=== PATIENT | female | born 1955 | race Caucasian/White ===

== ENCOUNTER 2018-10-29 19:17 | Emergency (ER) | payer MEDICARE, MEDICAID, SELFPAY ==
[2018-10-29 19:18] VITALS: BP 143/76; PULSE 84; RESP 18; TEMP 36.7; O2SAT 99; BMI 30.6
--- NOTE | 2018-10-29 20:22 | RAD_ITS ---
STUDY: X-RAY - RIGHT KNEE REASON FOR EXAM: Female, 63 years old. Knee pain TECHNIQUE: 4 view(s) of the knee. COMPARISON: None. FINDINGS: Normal visualized distal femur. Normal visualized proximal tibia and fibula. Normal proximal tibiofibular articulation. Normal medial femorotibial compartment. Normal lateral femorotibial compartment. Normal patellofemoral articulation. There is a joint effusion. Otherwise soft tissues are unremarkable. RAD/Knee 4 or More Views IMPRESSION: Intact and aligned knee. Joint effusion. Electronically Signed: Michelle Holland, at 20:55 EDT Tel , Service support ,
--- NOTE | 2018-10-29 20:24 | ED.DCSUM_ITS ---
- ER Visit Summary Date of Service: 10/29/18 Chief Complaint: Right knee pain History of Present Illness: The patient is a 63 F who presents with right knee pain that began today. Patient states she has been having some pain in her knee over the past several days but today when she was walking down some stairs she felt a pop and had severe pain in her right knee. Patient states her pain is worse with standing. Patient describes her pain as throbbing. Patient states her pain improves with ice. Patient denies any paresthesias or weakness. Patient denies any other injuries. Physical Examination: Vital signs are stable. Patient is afebrile. Patient is in no acute distress. Musculoskeletal exam reveals diffuse tenderness around the right knee. There is no effusion noted. There is no bony crepitance or step-off. There is no edema or ecchymosis. Range of motion was limited in flexion of the right knee secondary to pain. There is no laxity appreciated. Pedal pulses are equal bilaterally. There is no calf tenderness. Extensor mechanism is intact. Achilles tendon is intact. Sensation was intact to light touch in the lower extremities bilaterally. Test Results: X-rays of the right knee were obtained. There is no acute fracture or loose body noted. Emergency Department Course and Treatment: Patient was given an injection of morphine. Patient was advised of her x-ray findings. Patient was advised that the pain may be coming from soft tissue that is not seen on x-ray such as cartilage or ligaments. Patient was given crutches. Patient was given a prescription for tramadol. Patient was instructed to ice and elevate the right knee. Patient was instructed to follow-up with her primary care physician in 5 to 7 days. Patient understood and was agreeable with the plan. All questions were answered. Disposition: Discharge home Impression: Right knee pain This note was generated with [employer] dictation software. It may contain incorrect words, spelling, and punctuation that were not noted in review of the chart prior to signing ED Disposition - Plan for ED Patient: Disposition: Home or Assisted Living Diagnosis: Right knee pain Instructions: ED Knee Pain [facility] Prescriptions: traMADol [Ultram] 50 mg PO Q6H PRN PRN 3 Days #12 tab PRN Reason: Pain Referrals: Jj Medina MD [Primary Care Provider] - 3-5 Days
[2018-10-29] MEDS: Morphine 4 MG/ML Syringe IM (20:52)
[2018-10-29 22:56] VITALS: BP 129/72; PULSE 67; RESP 16; O2SAT 98
== END 2018-10-29 22:57 | disposition home or self-care (01) ==
PROVIDERS: Emergency Provider Emergency Medicine; Family Provider Internal Medicine; PCP Internal Medicine
DX: M25.561 Pain in right knee (principal); E11.22 Type 2 diabetes mellitus with diabetic chronic kidney disease; N18.9 Chronic kidney disease, unspecified; Z79.4 Long term (current) use of insulin; Z79.84 Long term (current) use of oral hypoglycemic drugs; Z79.899 Other long term (current) drug therapy
CPT/HCPCS: 73564; 96372; 99283

== ENCOUNTER 2025-04-29 03:02 | Emergency (ER) | payer MEDICARE, MEDICAID, SELFPAY ==
[2025-04-29 03:03] VITALS: BP 174/86; PULSE 70; RESP 25; TEMP 36.4; O2SAT 99; BMI 26.2
[2025-04-29 03:06] VITALS: BP 174/86; PULSE 70; RESP 25; TEMP 36.4; O2SAT 99
--- NOTE | 2025-04-29 03:17 | CT_ITS ---
PROCEDURE: SOFT TISSUE NECK WITH CONTRAST 04/29/2025 REASON FOR EXAM: TROUBLE SWALLOWING. TECHNIQUE: Procedure Code: CTNEW Modality: CT Procedure: SOFT TISSUE NECK WITH CONTRAST CONTRAST: OMNIPAQUE 350 VOLUME: 100 mL One or more dose reduction techniques were used (e.g., Automated exposure control, adjustment of the mA and/or kV according to patient size, use of iterative reconstruction technique). RADIATION DOSE SUMMARY: CTDlvol: 17.01 mGy DLP: 556 mGycm COMPARISON: None. FINDINGS: Mild hypertrophy of the palatine tonsils, probably acute tonsillitis. No fluid collection or drainable abscess formation. No CT evidence of critical airway narrowing. Mild hypertrophy of the uvula, probably inflammatory pathology without drainable abscess. Bilateral mildly prominent carotid space lymph nodes are noted with the largest measuring 1.2 cm, probably reactive. Diffuse spondylosis. Mild chronic mucosal inflammatory changes of the maxillary sinuses and ethmoid air cells. Normal bilateral parotid glands. Normal bilateral toys inspector spaces. Normal bilateral parapharyngeal spaces. Normal bilateral carotid spaces. Normal bilateral sublingual and submandibular glands. Normal sublingual and submandibular spaces. Normal visualized nasopharynx. Normal retropharyngeal space. Normal perivertebral space. The visualized tongue, tongue base are normal. There is no demonstrated solid or cystic mass lesion. Normal epiglottis, bilateral vallecula and hypopharynx. The pre-epiglottic and paraglottic adipose spaces are normal. Normal visualized bilateral piriform sinuses, aryepiglottic folds, vocal cords, and arytenoid-cricoid articulations. Normal subglottic trachea. Normal bilateral lobes of the thyroid gland. Normal visualized pulmonary apices. CT/Soft Tissue Neck WITH Contrast IMPRESSION: Mild hypertrophy of the palatine tonsils, probably acute tonsillitis. No fluid collection or drainable abscess formation. No CT evidence of critical airway narrowing. Mild hypertrophy of the uvula, probably inflammatory pathology without drainabl e abscess. Bilateral mildly prominent carotid space lymph nodes are noted with the largest measuring 1.2 cm, probably reactive. Diffuse spondylosis. Mild chronic mucosal inflammatory changes of the maxillary sinuses and ethmoid air cells. Reading [facility]
--- NOTE | 2025-04-29 03:17 | EKG12_ITS ---
Test Reason : SOB Blood Pressure : */* mmHG Vent. Rate : 67 BPM Atrial Rate : 67 BPM P-R Int : 226 ms QRS Dur : 84 ms QT Int : 392 ms P-R-T Axes : 53 -9 76 degrees QTcB Int : 414 ms Sinus rhythm with 1st degree A-V block Nonspecific T wave abnormality Abnormal ECG BASELINE [employer] IMPACTS ACCURACY OF RHYTHM EVALUATION Confirmed by Kevin Guy ([id number]), film editor supervisor EMI RINCON ([id number]) on 04/29/2025 10:03:18 AM Referred By: Confirmed By: Kevin Guy
--- NOTE | 2025-04-29 03:19 | EX.ED.VIS.UR ---
HPI HPI - URI History of Present Illness Chief Complaint: Shortness of Breath Informant: patient and family (Daughter at bedside) Onset/Context/Timing Onset: Today and Yesterday Context: Gradual Onset Timing: Continuous Current Severity: Moderate Maximum Severity: Moderate Worsened by: Swallowing Associated Symptoms Associated Symptoms: Positive for Shortness of Breath and Nonproductive cough; Negative for Chest Pain, Hemoptysis or Productive Cough Narrative Narrative: 70-year-old female history of chronic kidney disease, hypertension, diabetes and stroke. 2-day history of URI symptoms with sore throat and nonproductive cough. Trouble swallowing. Chills. Cough is nonproductive. Other family members with similar symptoms. No prior history of illness like this before.Denies vomiting or diarrhea. Denies fever. Denies chest pain. Prior similar symptoms: No Recent Illness/Hospitalization: No ROS ROS ED ROS Narrative Nonproductive cough. Sore throat. Trouble swallowing. Constitutional Constitutional ED: Denies chills or fever(s) Eyes Eyes: Denies blurry vision ENT ENT ED: Reports sore throat; Denies ear pain or rhinorrhea Cardiovascular Cardiovascular: Denies chest pain or palpitations Respiratory/Chest Respiratory/Chest: Reports cough Gastrointestinal Gastrointestinal: Denies abdominal pain, constipation, diarrhea, melena, nausea or vomiting Genitourinary Genitourinary ED: Denies dysuria or hematuria Musculoskeletal Musculoskeletal: Denies arthralgias Integumentary Denies abscess Neurologic Neurologic: Denies headache(s) Psychiatric Psychiatric: Denies anxiety or depression Hematologic/Lymphatic Hematologic/Lymphatic: Denies easy bleeding Allergic/Immunologic Allergic/Immunologic ED: Denies mouth swelling, tongue swelling or urticaria [facility] Medical History Chronic kidney disease HTN (hypertension) Diabetes Home Medications ?Medication ?Instructions ?Recorded ?Last Taken ?Type albuterol sulfate 90 mcg/actuation 1 - 2 puff PO PRN PRN Sob &/Or 10/29/18 Unknown History aerosol inhaler (Ventolin HFA) Wheezing lisinopril 20 1 tab PO DAILY 10/29/18 Unknown History mg-hydrochlorothiazide 25 mg tablet metformin 500 mg tablet 1,000 mg PO BID 10/29/18 Unknown History metoprolol tartrate 50 mg tablet 50 mg PO DAILY 10/29/18 Unknown History amlodipine 10 mg tablet 10 mg PO DAILY 04/29/25 Unknown History atorvastatin 40 mg tablet 40 mg PO DAILY 04/29/25 Unknown History dulaglutide 3 mg/0.5 mL 3 mg subcut ZARAGOZA 04/29/25 Unknown History subcutaneous pen injector (Trulicity) empagliflozin 10 mg tablet 10 mg PO DAILY 04/29/25 Unknown History (Jardiance) insulin degludec 200 unit/mL (3 60 unit subcut DAILY 04/29/25 Unknown History mL) subcutaneous pen (Tresiba FlexTouch U-200 insulin) prednisone 20 mg tablet 40 mg (2 x 20 mg) PO DAILY 6 days 04/29/25 Unknown Rx #12 tabs trazodone 150 mg tablet 150 mg PO QHS 04/29/25 Unknown History Allergy/AdvReac Type Severity Reaction Status Date / Time No Known Allergies Allergy Verified 04/29/25 03:04 Social History Smoking Status: Never smoker EXAM Physical Exam Narrative Exam Narrative: 70-year-old female vital signs are stable afebrile. Does not look septic or toxic. Pulse ox 9 9% on room air no hypoxia. H EENT exam pupils round react light. Moist mucous membranes. Posterior pharynx minimal erythema. No exudate. No peritonsillar abscess. Able to handle own secretions. I gave her water it is uncomfortable and she is able to swallow. TMs unremarkable. Neck trachea midline no lymphadenopathy. No mass. No meningismus. Lungs clear to auscultation bilaterally. Heart regular rhythm rate about 70 no murmur. Chest wall ribs nontender. Back nontender. Abdomen soft nontender. Moving all 4 extremities. Nontender no edema normal strength. Neurologically she is awake alert no focal motor deficits. Const Vital Signs: 04/29/25 03:03 04/29/25 03:06 04/29/25 03:06 Temperature 97.6 F L 97.6 F L Temperature Source Oral Oral Pulse Rate 70 70 Respiratory Rate 25 H 25 H Respiratory Effort Short of Breath Respiratory Depth Deep Respiratory Pattern Tachypnea Blood Pressure 174/86 H 174/86 H Blood Pressure Mean 115 115 Pulse Ox 99 99 Oxygen Delivery Method Room Air Room Air Room Air MDM MDM MDM Narrative Medical decision making narrative: 70-year-old female suspect viral URI. She said it is quite uncomfortable and painful to swallow CT of her soft tissue of her neck will be obtained. Due to shortness of breath I will get a chest x-ray screening labs. And EKG. But clinically I suspect this is a viral syndrome. Multiple repeat exams patient's oxygen saturation remains 95 to 99% lying supine. Her CAT scan of soft tissue neck was unremarkable. I think this is simply a viral syndrome with a viral pharyngitis. There is no abscess. There is no epiglottitis. Patient be discharged home. Plenty of fluids. Replaced on prednisone 40 mg a day to help decrease inflammation. Warm salt water gargling. Follow-up if not improving. I do not believe she needs any antibiotics with normal labs and unremarkable CT other than the inflammation. History & Record Review Discussion w/independent historian: Patient and Family Additional record(s) reviewed:: Other Lab Data Attestation: I reviewed the patient's lab results. Lab results narrative: CBC unremarkable. White count 8. H&H 13 and 40. Platelets 242. Chemistries show a gap of 13. BUN and creatinine is 71.3. Glucose 74. No prior labs available for comparison. COVID and flu negative. Rapid strep negative. Labs: Laboratory Results - last 24 hr 04/29/25 03:10 WBC 8.2 RBC 4.65 Hgb 13.0 Hct 40.5 MCV 87.1 MCH 28.0 MCHC 32.1 RDW Std Deviation 42.4 RDW Coeff of [place] 13.4 Plt Count 242 MPV 10.8 Immature Gran % (Auto) 0.200 Neut % (Auto) 34.1 L Lymph % (Auto) 36.4 [place] % (Auto) 9.5 Eos % (Auto) 18.8 H Baso % (Auto) 1.0 Absolute Neuts (auto) 2.8 Absolute Lymphs (auto) 2.97 Nucleated RBC % 0 Sodium 144 Potassium 3.6 Chloride 103 Carbon Dioxide 27.3 Anion Gap 13 BUN 17 Creatinine 1.34 H Estim Creat Clear Calc 34.57 L Est GFR (MDRD) Non-Af 43 L BUN/Creatinine Ratio 12.5 Glucose 74 Calcium 9.6 Radiography Chest X-Ray - ED: 2 View and Read by ED Physician Discharge Plan Triage Chief Complaint: Shortness of Breath ED Provider: Dat Hickman Dx/Rx/DC Orders Clinical Impression: Acute viral pharyngitis Instructions: ED Pharyngitis, Viral Prescriptions: New prednisone 20 mg tablet 40 mg PO DAILY 6 Days Qty: 12 0RF No Action metformin 500 MG tablet 1,000 mg PO BID metoprolol tartrate 50 MG tablet 50 mg PO DAILY lisinopril-hydrochlorothiazide 20 MG-25MG tablet 1 tab PO DAILY albuterol sulfate [Ventolin HFA] 90 MCG HFA aerosol inhaler 1 - 2 puff PO PRN PRN (Reason: Sob &/Or Wheezing) atorvastatin 40 mg tablet 40 mg PO DAILY amlodipine 10 mg tablet 10 mg PO DAILY Jardiance 10 mg tablet 10 mg PO DAILY Trulicity 3 mg/0.5 mL pen injector 3 mg subcut ZARAGOZA insulin degludec [Tresiba FlexTouch U-200] 200 unit/mL (3 mL) insulin pen 60 unit subcut DAILY trazodone 150 mg tablet 150 mg PO QHS Primary Care Provider: Jj Medina Referrals: Jj Medina MD [[facility]] - 3-5 Days if not improving Activity Restrictions/Additional Instructions: Plenty of fluids and rest. Warm salt water gargling. Tylenol for pain. I did write your prescription for prednisone 40 mg a day for 6 more days. You were given your dose for today here. This is to decrease the inflammation and the discomfort in your throat. You currently do not an antibiotic appears to be viral. Your rapid strep was negative. Your CAT scan showed no significant narrowing of your throat. This should progressively get better if not follow-up with your doctor. Print Language: [place] Disposition Disposition: Home, Self Care
--- OUTSIDE RECORDS SUMMARY | 2025-04-29 03:23 | XMS RPT_ITS | CCD ---
Author Organization [facility] Care Team Providers Care Surgical Nurse Name Role Phone Jj Nettles MD Primary Care Provider [phone] Jj Nettles MD Primary Care Provider [phone] Vj GRAPE CUTTER.Carly BRUNER Unavailable [phone] JJ NETTLES Primary Care Unavailable CARLY ZABALA Attending Unavailable SELF Referring Unavailable JJ NETTLES Primary Care Unavailable CARLY ZABALA Referring Unavailable SELF Referring Unavailable JJ NETTLES Attending Unavailable JJ NETTLES Primary Care Unavailable CARLY ZABALA Referring Unavailable JJ NETTLES Primary Care Unavailable Medications Current Medications Medication Drug Class(es) Dates Sig (Normalized) Sig (Original) [id number] 200 actuat albuterol 0.09 mg/actuat metered dose inhaler (20 sources) beta2-Adrenergic Agonist Start: 07-03-2021 End: 02-29-2024 take 2 puff(s) by inhalation every six hours as needed for wheezing albuterol HFA (VENTOLIN HFA) 90 mcg/actuation inhaler Indications: Asthmatic bronchitis without complication, unspecified asthma severity, unspecified whether persistent (HCC) INHALE 2 PUFFS EVERY 6 HOURS NEEDED FOR WHEEZING OR SHORTNESS OF BREATH 36 g 3 02/29/2024 Active Comment on above: INHALE 2 PUFFS EVERY 6 HOURS NEEDED FOR WHEEZING OR SHORTNESS OF BREATH amLODIPine 10 mg oral tablet (20 sources) Dihydropyridine Calcium Channel Guanakito Start: 06-29-2023 End: 08-30-2024 take 1 tablet by mouth once daily for hypertension amLODIPine (NORVASC) 10 mg tablet Indications: Essential hypertension Take 1 tablet by mouth once daily. For high blood pressure. 90 tablet 3 08/30/2024 Active Start: 07-03-2021 End: 08-17-2022 take 1 tablet by mouth once daily for hypertension amLODIPine (NORVASC) 10 mg tablet Indications: Essential hypertension Take 1 tablet by mouth once daily. For high blood pressure. 90 tablet 3 08/17/2022 Active Comment on above: Take 1 tablet by beryl th once daily. For high blood pressure. atorvastatin 40 mg oral tablet (20 sources) HMG-CoA Reductase Inhibitor Start: End: take 1 tablet by mouth once daily atorvastatin (LIPITOR) 40 mg tablet Indications: Mixed hyperlipidemia Take 1 tablet by mouth once daily. 90 tablet 3 08/30/2024 Active Start: 01-02-2021 take 1 tablet by beryl th once daily atorvastatin (LIPITOR) 40 mg tablet Indications: Mixed hyperlipidemia Take 1 tablet by mouth once daily. 90 tablet 3 01/02/2021 Active Comment on above: Take 1 tablet by beryl th once daily. Blood Glucose Control, Normal (TRUE METRIX LEVEL 2) soln (20 sources) Start: 02-21-2019 Blood Glucose Control, Normal (TRUE METRIX LEVEL 2) soln Indications: Type 2 diabetes mellitus with stage 3 chronic kidney disease, with long-term current use of insulin (HCC) 1 Bottle as directed. 1 Bottle as directed. Test controls every 2 weeks or as needed,E11.65 1 Each 3 02/21/2019 Active Comment on above: 1 Bottle as directed . 1 Bottle as directed. Test controls every 2 weeks or as needed,E11.65 Blood-Glucose Meter (TRUE METRIX AIR GLUCOSE METER) monitoring kit (20 sources) Start: 08-29-2020 Blood-Glucose Meter (TRUE METRIX AIR GLUCOSE METER) monitoring kit Indications: Type 2 diabetes mellitus with stage 3 chronic kidney disease, with long-term current use of insulin (HCC) Check 4 times a day. Dx: E11.22; N18.3 1 Each 08/29/2020 Active Start: 08-29-2020 Blood-Glucose Meter (TRUE METRIX AIR GLUCOSE METER) monitoring kit Indications: Type 2 diabetes mellitus with stage 3 chronic kidney disease, with long-term current use of insulin (HCC) Check 4 times a day. Dx: E11.22; N18.3 1 Each 0 08/29/2020 Active Comment on above: Check 4 times a day. Dx: E11.22; N18.3 0.5 ml dulaglutide 3 mg/ml auto-injector (20 sources) GLP-1 Receptor Agonist Start: 04-03-2021 End: 02-29-2024 dulaglutide (TRULICITY) 1.5 mg/0.5 mL pen injector Indications: Type 2 diabetes mellitus with stage 3 chronic kidney disease, with long-term current use of insulin (HCC) Inject 1.5 mg subcutaneously one time a week. Inject once per week. Discard Pen After 12 Each 3 09/30/2023 02/29/2024 Discontinued Comment on above: Inject 1.5 mg subcut aneously one time a week. Inject once per week. Discard Pen After dulaglutide (TRULICITY) 3 mg/0.5 mL pen injector (10 sources) Start: 02-08-2025 dulaglutide (TRULICITY) 3 mg/0.5 mL pen injector Indications: Type 2 diabetes mellitus with stage 3b chronic kidney disease, with long-term current use of insulin (HCC) Inject 3 mg subcutaneously one time a week. Inject once per week. Discard Pen After 6 mL 3 02/08/2025 Active Start: 08-30-2024 End: 02-07-2025 dulaglutide (TRULICITY) 3 mg /0.5 mL pen injector Indications: Type 2 diabetes mellitus with stage 3b chronic kidney disease, with long-term current use of insulin (HCC) Inject 3 mg subcutaneously one time a week. Inject once per week. Discard Pen After 6 mL 3 08/30/2024 02/07/2025 Discontinued Start: 08-30-2024 dulaglutide (T RULICITY) 3 mg/0.5 mL pen injector Indications: Type 2 diabetes mellitus with stage 3b chronic kidney disease, with long-term current use of insulin (HCC) Inject 3 mg subcutaneously one time a week. Inject once per week. Discard Pen After 6 mL 3 08/30/2024 Active Start: 02-29-2024 End: 08-30-2024 dulaglutide (TRULICITY) 3 mg /0.5 mL pen injector Indications: Type 2 diabetes mellitus with stage 3 chronic kidney disease, with long-term current use of insulin (HCC) Inject 3 mg subcutaneously one time a week. Inject once per week. Discard Pen After 6 mL 3 02/29/2024 08/30/2024 Discontinued Start: 02-29-2024 dulaglutide (T RULICITY) 3 mg/0.5 mL pen injector Indications: Type 2 diabetes mellitus with stage 3 chronic kidney disease, with long-term current use of insulin (HCC) Inject 3 mg subcutaneously one time a week. Inject once per week. Discard Pen After 6 mL 3 02/29/2024 Active empagliflozin 10 mg oral tablet (20 sources) Sodium-Glucose Cotransporter 2 Inhibitor Start: 06-29-2023 End: 08-30-2024 take 1 tablet by mouth once daily, then take 1 tablet by mouth once daily in the morning empagliflozin (JARDIANCE) 10 mg tablet Indications: Type 2 diabetes mellitus with stage 3b chronic kidney disease, with long-term current use of insulin ([facility]) Take 1 tablet by mouth once daily. Take 1 tablet once daily in the morning 90 tablet 3 08/30/2024 Active Start: 08-18-2022 End: 01-24-2023 take 1 tablet by mouth once daily, then take 1 tablet by mouth once daily in the morning empagliflozin (JARDIANCE) 10 mg tablet Indications: Type 2 diabetes mellitus with stage 3 chronic kidney disease, with long-term current use of insulin ([facility]) Take 1 tablet by mouth once daily. Take 1 tablet once daily in the morning 90 tablet 1 01/24/2023 Active Comment on above: Take 1 tablet by beryl th once daily. Take 1 tablet once daily in the morning hydroCHLOROthiazide 25 mg / lisinopril 20 mg oral tablet (20 sources) Thiazide Diuretic, Angiotensin Converting Enzyme Inhibitor Start: End: take 1 tablet by mouth once daily lisinopril-hydroCHL OROthiazide (ZESTORETIC) 20-25 mg per tablet Indications: Essential hypertension Take 1 tablet by mouth once daily. 90 tablet 3 02/29/2024 Active Start: 01-02-2021 take 2 tablets by mouth once daily lisinopril-hydroCHLOROthiazide (PRINZIDE , ZESTORETIC) 20-25 mg per tablet Indications: Essential hypertension Take 2 tablets by mouth once daily. 180 tablet 3 01/02/2021 Active Comment on above: Take 2 tablets by mo ut once daily. Take 1 tablet by beryl th once daily. 3 ml insulin aspart, human 100 unt/ml pen injector (20 sources) Insulin Analog Start: 08-30-2023 End: 08-30-2024 insulin aspart U-100 (NOVOLOG FLEXPEN U-100 INSULIN) 100 unit/mL (3 mL) Indications: Type 2 diabetes mellitus with stage 3b chronic kidney disease, with long-term current use of insulin (HCC) Inject 4 Units subcutaneously as needed (for blood glucose >200.). 15 mL 08/30/2024 Active Start: 04-03-2021 End: 01-02-2024 inject 30 [IU] by subcutaneous injection three times daily before mealtime, then inject 30 [IU] by subcutaneous injection once daily at bedtime insulin aspart U-100 (NOVOLOG FLEXPEN U-100 INSULIN) 100 unit/mL (3 mL) Indications: Type 2 diabetes mellitus with stage 3 chronic kidney disease, with long-term current use of insulin (HCC) Inject 30 Units subcutaneously three times daily before meals AND 30 Units daily at bedtime. 108 mL 3 08/18/2022 08/30/2023 Discontinued Comment on above: Inject 30 Units subcutaneously three marie es daily before meals AND 30 Units daily at bedtime. Inject 4 Units subcu taneously as needed (for blood glucose >200.). 3 ml insulin degludec 200 unt/ml pen injector (14 sources) Insulin Analog Start: End: inject 60 [IU] by subcutaneous injection once daily in the morning, then inject 48 [IU] by subcutaneous injection once daily at bedtime insulin degludec (TRESIBA FLEXTOUCH U-200) 200 unit/mL (3 mL) injection Indications: Type 2 diabetes mellitus with stage 3b chronic kidney disease, with long-term current use of insulin (HCC) Inject 60 Units subcutaneously every morning AND 48 Units daily at bedtime. 50 mL 3 08/30/2024 Active Comment on above: Inject 60 Units subcutaneously every mor alysa AND 60 Units daily at bedtime. 3 ml insulin detemir 100 unt/ml pen injector (15 sources) Insulin Analog Start: End: inject 60 [IU] by subcutaneous injection once daily in the morning, then inject 60 [IU] by subcutaneous injection once daily at bedtime insulin detemir U-100 (LEVEMIR FLEXTOUCH U-100 INSULIN) 100 unit/mL (3 mL) injection pen Indications: Type 2 diabetes mellitus with stage 3 chronic kidney disease, with long-term current use of insulin ([facility]) Inject 60 Units subcutaneously every morning AND 60 Units daily at bedtime. 120 mL 3 08/18/2022 08/18/2023 Active Start: 04-13-2021 End: 11-02-2022 inject 50 [IU] by subcutaneous injection once daily in the morning, then inject 60 [IU] by subcutaneous injection once daily at bedtime insulin detemir U-100 (LEVEMIR FLEXTOUCH U-100 INSULIN) 100 unit/mL (3 mL) injection pen Indications: Type 2 diabetes mellitus with stage 3 chronic kidney disease, with long-term current use of insulin ([facility]) Inject 50 Units subcutaneously every morning AND 60 Units daily at bedtime. 99 mL 3 11/02/2021 08/18/2022 Discontinued Comment on above: Inject 50 Units subc utaneously every morning AND 60 Units daily at bedtime. Inject 60 Units subc utaneously every morning AND 60 Units daily at bedtime. isopropyl alcohol 0.7 ml/ml medicated pad (20 sources) Start: 06-29-2023 alcohol swabs (BD SINGLE USE SWABS REGULAR) Indications: Type 2 diabetes mellitus with stage 3 chronic kidney disease, with long-term current use of insulin ([facility]) Apply 1 application to affected area four times daily. Use with Testing with diabetes 4 times a day, insulin dependent E11.65 400 Each 3 06/29/2023 Active Start: 01-02-2021 End: 08-18-2022 alcohol swabs (BD SINGLE USE SWABS REGULAR) Indications: Type 2 diabetes mellitus with stage 3 chronic kidney disease, with long-term current use of insulin ([facility]) Apply 1 application to affected area four times daily. Use with Testing with diabetes 4 times a day, insulin dependent E11.65 400 Each 3 08/18/2022 Active Comment on above: Apply 1 application to affected area four times daily. Use with Testing with diabetes 4 times a day, insulin dependent E11.65 metFORMIN hydrochloride 500 mg oral tablet (20 sources) Biguanide Start: 06-29-2023 End: 02-29-2024 metFORMIN (GLUCOPHAGE) 500 mg tablet Indications: Type 2 diabetes mellitus with stage 3 chronic kidney disease, with long-term current use of insulin ([facility]) TAKE 2 TABLETS TWICE DAILY WITH MEALS 360 tablet 3 02/29/2024 Active Start: 01-02-2021 metFORMIN (GLU COPHAGE) 500 mg tablet Indications: Type 2 diabetes mellitus with stage 3 chronic kidney disease, with long-term current use of insulin (HCC) TAKE 2 TABLETS TWICE DAILY WITH MEALS 360 tablet 3 01/02/2021 Active Comment on above: TAKE 2 TABLETS TWICE DAILY WITH MEALS metoprolol tartrate 50 mg oral tablet (20 sources) beta-Adrenergic Guanakito Start: 11-02-2021 End: 08-30-2024 take 1 tablet by mouth twice daily metoprolol tartrate, short acting, (LOPRESSOR) 50 mg tablet Indications: Essential hypertension Take 1 tablet by mouth two times a day. 180 tablet 3 08/30/2024 Active Start: 01-02-2021 take 1 tablet by beryl th twice daily metoprolol tartrate, short acting, (LOPRESSOR) 50 mg tablet Indications: Essential hypertension Take 1 tablet by mouth twice daily. 180 tablet 3 01/02/2021 Active Comment on above: Take 1 tablet by beryl th twice daily. traZODone hydrochloride 150 mg oral tablet (20 sources) Serotonin Reuptake Inhibitor Start: take 1 tablet by mouth once daily at bedtime traZODone (DESYREL) 150 mg tablet Indications: Depressive disorder , Insomnia, unspecified type Take 1 tablet by mouth daily at bedtime. 90 tablet 3 02/29/2024 Active Start: 06-29-2023 End: 02-29-2024 take 1 tablet by mouth once daily at bedtime traZODone (DESYREL) 100 mg tablet Indications: Depressive disorder , Insomnia, unspecified type Take 1 tablet by mouth daily at bedtime. 90 tablet 3 06/29/2023 02/29/2024 Discontinued Start: 07-03-2021 End: 08-17-2022 take 1 tablet by mouth once daily at bedtime traZODone (DESYREL) 100 mg tablet Indications: Depressive disorder , Insomnia, unspecified type Take 1 tablet by mouth daily at bedtime. 90 tablet 3 08/17/2022 Active Comment on above: Take 1 tablet by beryl th daily at bedtime. Problems Active Problems Problem Classification Problem Date Documented Date Episodic/Chronic Asthma (20 sources) Asthmatic bronchitis; Translations: [Unspecified asthma, uncomplicated] Onset: 02-27-2015 09-28-2016 Chronic Blindness and vision defects (1 source) Other visual disturbances; Translations: [Blurred vision, left eye] Onset: 03-14-2025 Episodic Chronic kidney disease (3 sources) Chronic kidney disease stage 3; Translations: [CKD (chronic kidney disease) stage 3, GFR 30-59 ml/min] Onset: 12-09-2017 05-25-2021 Chronic Chronic kidney disease (1 source) Chronic kidney disease; Translations: [Hypertensive kidney disease with stage 3b chronic kidney disease (HCC)] Onset: 05-08-2020 Diabetes mellitus with complications (20 sources) Type 2 diabetes mellitus; Translations: [Type 2 diabetes mellitus with diabetic chronic kidney disease] Onset: 07-11-2015 Resolved: 01-29-2022 05-08-2020 Chronic Diabetes mellitus without complication (1 source) Insulin treated type 2 diabetes mellitus 08-30-2024 Chronic Diabetes mellitus without complication (1 source) Diabetes mellitus without complication; Translations: [Type 2 diabetes mellitus with stage 3b chronic kidney disease, with long-term current use of insulin (HCC)] Onset: 01-29-2022 Disorders of lipid metabolism (20 sources) Mixed hyperlipidemia; Translations: [Mixed hyperlipidemia] Onset: 07-11-2015 07-11-2015 Chronic Essential hypertension (15 sources) Essential hypertension; Translations: [Essential (primary) hypertension] Onset: 02-29-2024 Chronic Hypertension with complications and secondary hypertension (20 sources) Chronic kidney disease stage 3 due to hypertension; Translations: [Hypertensive chronic kidney disease with stage 1 through stage 4 chronic kidney disease, or unspecified chronic kidney disease] Onset: 07-11-2015 05-08-2020 Chronic Immunizations and screening for infectious disease (1 source) Needs influenza immunization; Translations: [Encounter for immunization] Episodic Mood disorders (20 sources) Depressive disorder; Translations: [Depressive disorder] Onset: 07-10-2018 07-10-2018 Chronic Other nutritional; endocrine; and metabolic disorders (20 sources) Obese class I; Translations: [Obesity, unspecified] Onset: 09-18-2020 09-18-2020 Chronic Other screening for suspected conditions (not mental disorders or infectious disease) (4 sources) Patient encounter status; Translations: [Encounter for screening mammogram for malignant neoplasm of breast] Episodic Residual codes; unclassified (1 source) Postmenopausal state; Translations: [Asymptomatic menopausal state] Episodic Residual codes; unclassified (1 source) Asymptomatic menopausal state; Translations: [Asymptomatic menopause] Onset: 03-14-2025 Episodic Screening and history of mental health and substance abuse codes (1 source) Encounter for screening examination for other mental health and behavioral disorders; Translations: [Encounter for screening examination for other mental health and behavioral disorders] Onset: 03-14-2025 Episodic Past or Other Problems Problem Classification Problem Date Documented Da te Episodic/Chronic Other aftercare (1 source) middle or intermediate school principal (current) use of insulin; Translations: [Type 2 diabetes mellitus with stage 3b chronic kidney disease, with long-term current use of insulin (HCC)] Onset: 01-29-2022 Episodic Residual codes; unclassified (20 sources) Insomnia; Translations: [Insomnia, unspecified] Onset: 06-22-2016 06-22-2016 Episodic Residual codes; unclassified (1 source) Insomnia, unspecified; Translations: [Insomnia, unspecified type] Onset: 06-22-2016 Episodic Results Test Name Value Interpretation Reference Range Facil ity CBC panel Auto (Bld)on 03-14 Erythrocyte distribution width (RBC) [Ratio] 13.3 % Normal 11.5-15.[address] [facility] Comment on above: Order Comment: Eryn laughlin Type: BLOOD SPECIMENOrdering Facility: [facility] Address: [address] [place] [address] Performed By: #### 5 8410-2 ####[facility] [id number] [place] [address] [place] Hematocrit (Bld) [Volume fraction] 38.0 % Normal 36.0-46.[address] [facility] Comment on above: Order Comment: Eryn laughlin Type: BLOOD SPECIMENOrdering Facility: [facility] Address: [address] [place] [address] Performed By: #### 5 8410-2 ####[facility] [id number] [place] [address] [place] Hemoglobin (Bld) [Mass/Vol] 12.5 g/dL Normal 11.5-15.[address] [facility] Comment on above: Order Comment: Speci men Type: BLOOD SPECIMENOrdering Facility: [facility] Address: [address] [place] [address] Performed By: #### 5 8410-2 ####[facility] [id number] [place] [address] [place] [facility] MCH (RBC) [Entitic mass] 28.4 pg Normal 26.0-34.[address] [facility] Comment on above: Order Comment: Speci men Type: BLOOD SPECIMENOrdering Facility: [facility] Address: [address] [place] [address] Performed By: #### 5 8410-2 ####[facility] [id number] [place] [address] [place] MCHC (RBC) [Mass/Vol] 32.9 g/dL Normal 30.5-36.[address] [facility] Comment on above: Order Comment: Speci men Type: BLOOD SPECIMENOrdering Facility: [facility] Address: [address] [place] [address] Performed By: #### 5 8410-2 ####[facility] [id number] [place] [address] [place] MCV (RBC) [Entitic vol] 86.4 fL Normal 80.0-100.[address] [facility] Comment on above: Order Comment: Speci men Type: BLOOD SPECIMENOrdering Facility: [facility] Address: [address] [place] [address] Performed By: #### 5 8410-2 ####[facility] [id number] [address] [place] Nucleated RBC (Bld) [#/Vol] 10*3/uL Normal <0.[address] [facility] Comment on above: Order Comment: Speci men Type: BLOOD SPECIMENOrdering Facility: [facility] Address: [address] [place] [address] Performed By: #### 5 8410-2 ####[facility] [id number] [place] [address] [place] Platelet mean volume (Bld) [Entitic vol] 11.0 fL Normal 9.0-12.[address] [facility] Comment on above: Order Comment: Speci men Type: BLOOD SPECIMENOrdering Facility: [facility] Address: [address] [place] [address] Performed By: #### 5 8410-2 ####[facility] [id number] [place] [address] [place] Platelets (Bld) [#/Vol] 258 10*3/uL Normal 150-[address] [facility] Comment on above: Order Comment: Speci men Type: BLOOD SPECIMENOrdering Facility: [facility] Address: [address] [place] [address] Performed By: #### 5 8410-2 ####[facility] [id number] [place] [address] [place] RBC (Bld) [#/Vol] 4.40 10*6/uL Normal 3.90-5.20 [facility] Comment on above: Order Comment: Speci men Type: BLOOD SPECIMENOrdering Facility: [facility] Address: [address] [place] [address] Performed By: #### 5 8410-2 ####[facility] [id number] [place] [address] [place] WBC (Bld) [#/Vol] 10.88 10*3/uL Normal 3.70-11.00 [facility] Comment on above: Order Comment: Speci men Type: BLOOD SPECIMENOrdering Facility: [facility] Address: [address] [place] [address] Performed By: #### 5 8410-2 ####[facility] [id number] [place] [address] [place] CNOVon 03-14-2025 CNOV Office Visit (INTMWS ) DIEGO POPE ([id number]) 1955 F Date Time Provider Department 03/14/25 7:40 AM CARLY ZABALA INTMWS During your visit today, we recorded the following information about you: Pulse Respiration Blood pressure Weight 71/minute 16/minute 103/68 65.9 kg Height 1.588 m Carly Zabala, GRAPE CUTTER.MATH AND SCIENCE INSTRUCTOR 03/14/2025 8:06 AM Signed Diego Pope is a 69 year old female here for a Medicare wellness visit. Medicare Health Risk Assessment General Health Good Exercise: Minutes/Day 20 min Exercise: Days/Week 2 days Alcohol: Daily Use Never Alcohol: Drinks/Day Patient does not drink Alcohol: 6 or more drinks Never Feel off balance No Concerns: Teeth/Dentures No Concerns: Sexual function No Troubled by feelings Irritable Frequency: Eating healthy diet Not at all ADLs requiring help Driving Safety precautions in home/vehicle Yes Smoke, vape, chews tobacco No Difficulty hearing No Difficulty seeing Yes Current Providers Specialists: I have reviewed specialist-related care of the patient in the medical record. Current care team: Patient Care Team: Jj Nettles MD as PCP - General (Internal Medicine) Carly Zabala, CATHY.FRANC as Supervisor [employer] (Internal Medicine) Medical/Family history review Reviewed and updated problem list, medical/surgical/famil y/social history, medications, and allergies. Opioid use review Prescribed: No opioid use on file in the last 90 days Patient-reported: No opioid use on file in the last 90 days Depression screening already diagnosed with depression. Recommendation: no further intervention at this time Anxiety screening RAYSA-2 Score: 0 Based on score and interview, patient is: Not at risk for anxiety Screening tool discussed with patient, and I recommend: No further intervention at this time Cognitive screening Mini Cog Score: 3 Cognitive screening reviewed and No further action needed (score 3-5). Functional Observation Was the patient's Timed Up AND Go test unsteady or >= 12 seconds? No Advance Directives Patient was not able to provide a surrogate decision maker or written advance directives Measurements BP 103/68 Pulse 71 Resp 16 Ht 158.8 cm (5' 2.5) Wt 65.9 kg (145 lb 4.5 oz) SpO2 98% BMI 26.15 kg/m? Vision Screening (with glasses): Right: 20/50 Left: 20/ - Both: 20/50 Assessment/Plan Medicare annual wellness visit, subsequent (Z00.00) - Counseled on healthy diet and regular exercise - Fall avoidance information provided - Personalized prevention plan provided Additional Concerns The following concerns were also discussed with the patient: The patient is a 69-year-old female with a history of HTN and diabetes, presenting for an annual wellness visit. Insomnia/Depression - Taking trazodone at bedtime, denies side effects Diabetes: - Taking Metformin, Trulicity 3 mg, Jardiance, Tresiba 60 units in the morning and 48 units at bedtime, and Novolog PRN. - Monitors blood glucose at home; readings average around 100-110 mg/dL. - Experiences hypoglycemic episodes approximately once a week, with readings as low as 53 mg/dL. - Hypoglycemic episodes often occur in the morning; symptoms include shakiness and sweating. - Last eye exam was several years ago; reports significant vision impairment in the left eye, worsening over the years. - Has not seen an court operations clerk recently due to transportation issues. Hypertension: - Taking lisinopril, hydrochlorothiazide, metoprolol, and amlodipine. - Denies side effects - Does not check BP at home Review of Systems Constitutional: Negative for chills, diaphoresis, fatigue and fever. Respiratory: Negative for cough, shortness of breath and wheezing. Cardiovascular: Negative for chest pain, palpitations and leg swelling. Neurological: Negative for dizziness, syncope, weakness and light-headedness. Objective: BP 103/68 Pulse 71 Resp 16 Ht 158.8 cm (5' 2.5) Wt 65.9 kg (145 lb 4.5 oz) SpO2 98% BMI 26.15 kg/m? Physical Exam Vitals reviewed. Constitutional: Appearance: Normal appearance. Cardiovascular: Rate and Rhythm: Normal rate and regular rhythm. Heart sounds: Normal heart sounds. No murmur heard. Pulmonary: Effort: Pulmonary effort is normal. Breath sounds: Normal breath sounds. No wheezing, rhonchi or rales. Skin: General: Skin is warm and dry. Neurological: Mental Status: She is alert. Psychiatric: Attention and Perception: Attention normal. Mood and Affect: Affect is blunt. Speech: Speech normal. Behavior: Behavior is cooperative. DATA REVIEWED: Most recent labs Assessment/Plan: 1. Medicare annual wellness visit, subsequent (Z00.00): See Medicare Wellness plan 2. Type 2 diabetes mellitus with stage 3b chronic kidney disease, with long-term current use of insulin (HCC) (E11.22): Generally st (more content not included)... Normal [facility] Comprehensive metabolic 2000 panelon 03-14-2025 Albumin [Mass/Vol] 4.2 g/dL Normal 3.9-4.9 [facility] Comment on above: Order Comment: Speci men Type: BLOOD SPECIMENOrdering Facility: [facility] Address: [address] [place] [address] Performed By: #### 2 4323-8 ####[facility] [id number] [place] [address] [place] ALP [Catalytic activity/Vol] 83 U/L Normal 34-[address] [facility] Comment on above: Order Comment: Speci men Type: BLOOD SPECIMENOrdering Facility: [facility] Address: [address] [place] [address] Performed By: #### 2 4323-8 ####[facility] [id number] [place] [address] [place] ALT [Catalytic activity/Vol] 15 U/L Normal 7-[address] [facility] Comment on above: Order Comment: Speci men Type: BLOOD SPECIMENOrdering Facility: [facility] Address: [address] [place] [address] Performed By: #### 2 4323-8 ####[facility] [id number] [place] [address] [place] Anion gap [Moles/Vol] 11 mmol/L Normal 8-[address] [facility] Comment on above: Order Comment: Speci men Type: BLOOD SPECIMENOrdering Facility: [facility] Address: [address] [place] [address] Performed By: #### 2 4323-8 ####[facility] [id number] [place] [address] [place] AST [Catalytic activity/Vol] 23 U/L Normal 13-[address] [facility] Comment on above: Order Comment: Speci men Type: BLOOD SPECIMENOrdering Facility: [facility] Address: [address] [place] [address] Performed By: #### 2 4323-8 ####[facility] [id number] [place] [address] [place] Bilirubin [Mass/Vol] 0.3 mg/dL Normal 0.2-1.[address] [facility] Comment on above: Order Comment: Speci men Type: BLOOD SPECIMENOrdering Facility: [facility] Address: [address] [place] [address] Performed By: #### 2 4323-8 ####[facility] [id number] [place] [address] [place] Calcium [Mass/Vol] 9.5 mg/dL Normal 8.5-10.2 [facility] Comment on above: Order Comment: Speci men Type: BLOOD SPECIMENOrdering Facility: [facility] Address: [address] [place] [address] Performed By: #### 2 4323-8 ####[facility] [id number] [place] [address] [place] Chloride [Moles/Vol] 101 mmol/L Normal 98-[address] [facility] Comment on above: Order Comment: Speci men Type: BLOOD SPECIMENOrdering Facility: [facility] Address: [address] [place] [address] Performed By: #### 2 4323-8 ####[facility] [id number] [place] [address] [place] CO2 [Moles/Vol] 28 mmol/L Normal 22-[address] [facility] Comment on above: Order Comment: Speci men Type: BLOOD SPECIMENOrdering Facility: [facility] Address: [address] [place] [address] Performed By: #### 2 4323-8 ####[facility] [id number] [place] [id number] [place] Creatinine [Mass/Vol] 1.54 mg/dL High 0.58-0.[address] [facility] Comment on above: Order Comment: Speci men Type: BLOOD SPECIMENOrdering Facility: [facility] Address: [address] [place] [address] Performed By: #### 2 4323-8 ####[facility] [id number] [place] [address] [place] eGFRcr SerPlBld CKD-EPI 2020 36 mL/min/1.73m??? Low >=[address] [facility] Comment on above: Order Comment: Eryn laughlin Type: BLOOD SPECIMENOrdering Facility: [facility] Address: [address] [place] [address] Result Comment: Yenny mated Glomerular Filtration Rate (eGFR) is calculated using the 2020 CKD-EPI creatinine equation. This equation utilizes serum creatinine, sex, and age as parameters. The creatinine assay has traceable calibration to isotope dilution-mass spectrometry. Refer to KDIGO guidelines for clinical interpretation. In patients with unstable renal function, e.g. those with acute kidney injury, the eGFR may not accurately reflect actual GFR. Performed By: #### 2 4323-8 ####[facility] [id number] [place] [address] [place] Glucose [Mass/Vol] 77 mg/dL Normal 74-99 [facility] Comment on above: Order Comment: Eryn laughlin Type: BLOOD SPECIMENOrdering Facility: [facility] Address: [address] [place] [address] Result Comment: The [place] Diabetes Association (ADA) provides guidance for cutoff values for fasting glucose and random glucose. The ADA defines fasting as no caloric intake for at least 8 hours. Fasting plasma glucose results between 100 to 125 mg/dL indicate increased risk for diabetes (prediabetes). Fasting plasma glucose results greater than or equal to 126 mg/dL meet the criteria for diagnosis of diabetes. In the absence of unequivocal hyperglycemia, results should be confirmed by repeat testing. In a patient with classic symptoms of hyperglycemia or hyperglycemic crisis, random plasma glucose results greater than or equal to 200 mg/dL meet the criteria for diagnosis of diabetes. Reference: Standards of Medical Care in Diabetes 2016, [place] Diabetes Association. Diabetes Care. 2016.39(Suppl 1). Performed By: #### 2 4323-8 ####[facility] [id number] [place] [address] [place] Potassium [Moles/Vol] 4.2 mmol/L Normal 3.7-5.[address] [facility] Comment on above: Order Comment: Speci men Type: BLOOD SPECIMENOrdering Facility: [facility] Address: [address] [place] [address] Performed By: #### 2 4323-8 ####[facility] [id number] [place] [address] [place] Protein [Mass/Vol] 7.3 g/dL Normal 6.3-8.0 [facility] Comment on above: Order Comment: Speci men Type: BLOOD SPECIMENOrdering Facility: [facility] Address: [address] [place] [address] Performed By: #### 2 4323-8 ####[facility] [id number] [place] [address] [place] Sodium [Moles/Vol] 140 mmol/L Normal 136-144 [facility] Comment on above: Order Comment: Speci men Type: BLOOD SPECIMENOrdering Facility: [facility] Address: [address] [place] [address] Performed By: #### 2 4323-8 ####[facility] [id number] [place] [address] [place] Urea nitrogen [Mass/Vol] 29 mg/dL High 7-[address] [facility] Comment on above: Order Comment: Speci men Type: BLOOD SPECIMENOrdering Facility: [facility] Address: [address] [place] [address] Performed By: #### 2 4323-8 ####[facility] [id number] [address] HbA1c (Bld)on 03-14-2025 Average glucose Estimated from glycated hemoglobin (Bld) [Mass/Vol] 108 mg/dL Normal [facility] Comment on above: Order Comment: Eryn laughlin Type: BLOOD SPECIMENOrdering Facility: [facility] Address: [address] [place] [address] Result Comment: eAG: (Estimated average glucose) is a calculated value from HgbA1c and is herbicide service sales representative of the average blood glucose level in the last 2-3 month period. Performed By: #### 5 5454-3 ####[facility] [id number] [address] HbA1c (Bld) [Mass fraction] 5.4 % Normal 4.3-5.[address] [facility] Comment on above: Order Comment: Eryn laughlin Type: BLOOD SPECIMENOrdering Facility: [facility] Address: [address] [place] [address] Result Comment: [place] Diabetes Association guidelines indicate that patients with HgbA1c in the range 5.7-6.4% are at increased risk for development of diabetes, and intervention by lifestyle modification may be beneficial. HgbA1c greater or equal to 6.5% is considered diagnostic of diabetes. Performed By: #### 5 5454-3 ####[facility] [id number] [address] CNOVon 08-30-2024 CNOV Office Visit (INTMWS ) DIEGO POPE ([id number]) 1955 F Date Time Provider Department 08/30/24 9:00 AM JJ NETTLES INTMWS During your visit today, we recorded the following information about you: Temperature Pulse Blood pressure Weight 97.9 degrees 68/minute 116/68 69.3 kg Jj Nettles MD 08/30/2024 9:53 AM Signed This note was created using [employer]. Subjective Patient presents with: F/U 6 months Diego Pope is a 69 year old female. She was doing well. She reduced her Tresiba to 48 units at bedtime one month ago, due to low glucose readings and this has improved. Her hypertension was controlled. Lipid panel was pending. Review of Systems Constitutional: Negative for fatigue and fever. HENT: Negative for congestion. Eyes: Negative for visual disturbance. Respiratory: Negative for cough and shortness of breath. Cardiovascular: Negative for chest pain, palpitations and leg swelling. Gastrointestinal: Negative for abdominal pain, constipation, diarrhea, nausea and vomiting. Genitourinary: Negative for dysuria. Neurological: Negative for dizziness, numbness and headaches. ACTIVE PROBLEM LIST Hypertensive Kidney Disease With Stage 3 Chronic Kidney Disease (Hcc) Mixed Hyperlipidemia Type 2 Diabetes Mellitus With Stage 3b Chronic Kidney Disease, With Long-Term Current Use of Insulin (Hcc) Asthmatic Bronchitis Without Complication (Hcc) Insomnia Depressive Disorder Obesity, Class I, Bmi 30-34.9 Essential Hypertension Social History Tobacco Use Smoking status: Never Smokeless tobacco: Never Substance Use Topics Alcohol use: No Drug use: No Current Outpatient Medications Medication Sig insulin degludec (TRESIBA FLEXTOUCH U-200) 200 unit/mL (3 mL) injection Inject 60 Units subcutaneously every morning AND 54 Units daily at bedtime. albuterol HFA (VENTOLIN HFA) 90 mcg/actuation inhaler INHALE 2 PUFFS EVERY 6 HOURS NEEDED FOR WHEEZING OR SHORTNESS OF BREATH dulaglutide (TRULICITY) 3 mg/0.5 mL pen injector Inject 3 mg subcutaneously one time a week. Inject once per week. Discard Pen After metFORMIN (GLUCOPHAGE) 500 mg tablet TAKE 2 TABLETS TWICE DAILY WITH MEALS traZODone (DESYREL) 150 mg tablet Take 1 tablet by mouth daily at bedtime. lisinopril-hydroCHLORO thiazide (ZESTORETIC) 20-25 mg per tablet Take 1 tablet by mouth once daily. insulin aspart U-100 (NOVOLOG FLEXPEN U-100 INSULIN) 100 unit/mL (3 mL) Inject 4 Units subcutaneously as needed (for blood glucose >200.). atorvastatin (LIPITOR) 40 mg tablet Take 1 tablet by mouth once daily. empagliflozin (JARDIANCE) 10 mg tablet Take 1 tablet by mouth once daily. Take 1 tablet once daily in the morning metoprolol tartrate, short acting, (LOPRESSOR) 50 mg tablet Take 1 tablet by mouth two times a day. Lancets Test blood sugar(s) 4 times daily. Dx: Type 2 DM - Uncontrolled E11.65 Insulin: Yes Insulin [place], Disposable, (BD ULTRA-FINE ION PEN NEEDLE) 32 gauge x 5/32 USE DIRECTED FOR EACH DOSE 6 TIMES DAILY (FOR DIABETES) amLODIPine (NORVASC) 10 mg tablet Take 1 tablet by mouth once daily. For high blood pressure. alcohol swabs (BD SINGLE USE SWABS REGULAR) Apply 1 application to affected area four times daily. Use with Testing with diabetes 4 times a day, insulin dependent E11.65 Blood-Glucose Meter (TRUE METRIX AIR GLUCOSE METER) monitoring kit Check 4 times a day. Dx: E11.22; N18.3 Blood Glucose Control, Normal (TRUE METRIX LEVEL 2) soln 1 Bottle as directed. 1 Bottle as directed. Test controls every 2 weeks or as needed,E11.65 No current facility-administered medications for this visit. Objective BP 116/68 (BP Site: Left Arm, BP Position: Sitting, BP Cuff Size: Large Adult) Pulse 68 Temp 36.6 ?C (97.9 ?F) (Temporal) Wt 69.3 kg (152 lb 12.5 oz) BMI 27.24 kg/m? Physical Exam Constitutional: General: She is not in acute distress. Appearance: She is not ill-appearing. HENT: Head: Normocephalic. Eyes: General: No scleral icterus. Conjunctiva/sclera: Conjunctivae normal. Cardiovascular: Rate and Rhythm: Normal rate and regular rhythm. Heart sounds: No murmur heard. No gallop. Pulmonary: Breath sounds: Normal breath sounds. Abdominal: Palpations: Abdomen is soft. Tenderness: There is no abdominal tenderness. Musculoskeletal: Right lower leg: No edema. Left lower leg: No edema. Neurological: Mental Status: She is alert. Gait: Gait normal. Feet:Shoes and socks removed, No deformities, ulcers, calluses, normal distal pulses, and sensitive to 10 gm monofilament. Latest Ref Rng 08/30/2024 Hemoglobin A1C (POCT) 4.3 - 5.6 % 5.6 Glucose meter data, glucose log or CGM data were reviewed for the past month. Range: 58-140. Average: 115. Patient was testing 2 to 3/day . Assessment and Plan 1. Type 2 diabetes mellitus with stage 3b chronic kidney disease, with (more content not included)... Normal [facility] HEMOGLOBIN A1C (POC)on 08-30 HbA1c (Bld) [Mass fraction] 5.6 % 4.3 - 5.6 % [facility] Comment on above: Location:[address], [place], [address] Point of care (POC) Hemoglobin A1c (HGBA1C) testing is intended to assess glucose control and provide a management tool for patients known to have diabetes and their healthcare providers. Target HGBA1C levels may depend on specific clinical circumstances. POC HGBA1C is not intended for use as a diagnostic or screening test; laboratory-based testing should be used for diagnostic purposes. The following information is supplemental and may not be applicable to specific diabetes management situations: The POC device capability lead provides a normal range of 4.2% to 6.5% for the HGBA1C POC test. However, the [place] Diabetes Association guidelines indicate that patients with HGBA1C in the range of 5.7% to 6.4% are at increased risk for development of diabetes and that intervention by lifestyle modification may be beneficial. A HGBA1C level greater than or equal to 6.5% is considered diagnostic of diabetes, pending confirmatory testing. Use of HGBA1C testing to evaluate glucose control may not be appropriate for patients with hemoglobin variants or other conditions (e.g. anemia) that alter red blood cell lifespan. [facility] Lipid 1996 panelon 5 Cholesterol [Mass/Vol] 154 mg/dL Normal <[address] [facility] Comment on above: Order Comment: Speci men Type: BLOOD SPECIMENOrdering Facility: [facility] Address: [address] [place] [address] Result Comment: <200 mg/dL, Desirable 200-239 mg/dL, Borderline high >239 mg/dL, High Performed By: #### 2 4895-1 ####[facility] LABCLIA [id number] [address] Cholesterol in HDL [Mass/Vol] 35 mg/dL Low >[address] [facility] Comment on above: Order Comment: Speci men Type: BLOOD SPECIMENOrdering Facility: [facility] Address: [address] [place] [address] Result Comment: 40-5 9 mg/dL, Acceptable >59 mg/dL, High: Negative risk factor for coronary heart disease <40 mg/dL, Low: Positive risk factor for coronary heart disease Performed By: #### 2 4331-1 ####[facility] LABCLIA [id number] [address] Cholesterol in LDL [Mass/Vol] 74 mg/dL Normal <[address] [facility] Comment on above: Order Comment: [facility] Type: BLOOD SPECIMENOrdering Facility: [facility] Address: [address] [place] [address] Result Comment: <100 mg/dL, Optimal 100-129 mg/dL, Near optimal/above optimal 130-159 mg/dL, Borderline high 160-189 mg/dL, High >189 mg/dL, Very high Secondary prevention optimal LDL Cholesterol levels are recommended to be < 70 mg/dL Performed By: #### 2 4331-1 ####[facility] LABCLIA [id number] [address] Cholesterol in LDL/Cholesterol in HDL [Mass ratio] 2.11 {ratio} Normal <2.[address] [facility] Comment on above: Order Comment: [facility] Type: BLOOD SPECIMENOrdering Facility: [facility] Address: [address] [place] [address] Result Comment: Refe rence: 1. National Cholesterol Education Program ATP III Guideline At-A-Glance Quick Desk Reference: National Heart, Lung, and Blood [place]. National Institutes of Health. 2001: NIH Publication No. 01-3305. 2. An International Atherosclerosis Society position paper: global recommendations for the management of dyslipidemia: executive summary, Atherosclerosis. 2014: 232(2):410-413. Performed By: #### 2 4331-1 ####[facility] LABCLIA [id number] [address] [address] [place] Cholesterol in VLDL [Mass/Vol] 45 mg/dL High <[address] [facility] Comment on above: Order Comment: Speci men Type: BLOOD SPECIMENOrdering Facility: [facility] Address: [address] [place] [address] Performed By: #### 2 4331-1 ####[facility] LABCLIA [id number] [address], [facility] [place] Cholesterol non HDL [Mass/Vol] 119 mg/dL Normal <[address] [facility] Comment on above: Order Comment: Speci men Type: BLOOD SPECIMENOrdering Facility: [facility] Address: [address] [place] [address] Result Comment: <130 mg/dL, Optimal 130-159 mg/dL, Near optimal/above optimal 160-189 mg/dL, Borderline high 190-219 mg/dL, High >219 mg/dL, Very high Secondary prevention optimal non HDL Cholesterol levels are recommended to be <100 mg/dL Performed By: #### 2 4331-1 ####[facility] LABCLIA [id number] [address] [place] [address] [place] Cholesterol.total/C holesterol in HDL [Mass ratio] 4.40 {ratio} Normal <5.[address] [facility] Comment on above: Order Comment: Speci men Type: BLOOD SPECIMENOrdering Facility: [facility] Address: [address] [place] [id number] Performed By: #### 2 4331-1 ####[facility] LABIA [id number] [place] [id number] [place] FASTING TIME 10 hrs Normal [facility] Comment on above: Order Comment: Speci men Type: BLOOD SPECIMENOrdering Facility: [facility] Address: [address] [place] [address] Performed By: #### 2 4331-1 ####[facility] LABCLIA [id number] [place] [address] [place] Triglyceride [Mass/Vol] 227 mg/dL High <[address] [facility] Comment on above: Order Comment: Speci men Type: BLOOD SPECIMENOrdering Facility: [facility] Address: [address] [place] [address] Result Comment: <150 mg/dL, Normal 150-199 mg/dL, Borderline high 200-499 mg/dL, High >499 mg/dL, Very high Performed By: #### 2 4331-1 ####[facility] LABCLIA [id number] [address] [place] CNPNon 08-22-2024 CNPN Telephone (4CQ) DIEGO POPE ([id number]) 1955 F Date Time Provider Department 08/22/24 JJ NETTLES 4CQ During your visit today, we recorded the following information about you: Uyen Blanche 08/22/2024 12:40 PM Signed Pt would like labs ordered prior to her 08/30 appt. Please advise, Thank you Myah Gonzalez LPN 08/22/2024 2:00 PM Signed Patient has been identified by name and date of : Yes Patient phones for refill(s): Requested Prescriptions No prescriptions requested or ordered in this encounter Date of last office visit in primary care: 02/29/2024 Date of next office visit in primary care: 08/30/2024 Please advise. Thank you. Myah Gonzalez LPN.' Myah Gonzalez LPN 08/22/2024 4:36 PM Signed Patient notified, fasting lab order is in to be done prior to her appt 08/30/2024. Myah Gonzalez SERA Allergies As of Date: 08/22/2024 (No Known Allergies) Date Reviewed: 02/29/2024 Reviewed by: Carly Zabala APRN.MATH AND SCIENCE INSTRUCTOR - Fully Assessed Reason for Visit: Orders [681] Visit Diagnoses:Type 2 diabetes mellitus with stage 3b chronic kidney disease, with long-term current use of insulin (HCC) [E11.22, N18.32, Z79.4] Hypertensive kidney disease with stage 3b chronic kidney disease (HCC) [I12.9, N18.32] Order(s):LIPID PANEL, FASTING [SQLIPB] Order #: [id number] FUTURE HEMOGLOBIN A1C [XZVHN2I] Order #: [id number] FUTURE COMPREHENSIVE METABOLIC PANEL [SQCMP] Order #: [id number] FUTURE COMPLETE BLOOD COUNT [SQCBC] Order #: [id number] FUTURE Prescriptions as of 08/22/2024 - insulin degludec (TRESIBA FLEXTOUCH U-200) 200 unit/mL (3 mL) injection Inject 60 Units subcutaneously every morning AND 54 Units daily at bedtime. - albuterol HFA (VENTOLIN HFA) 90 mcg/actuation inhaler INHALE 2 PUFFS EVERY 6 HOURS NEEDED FOR WHEEZING OR SHORTNESS OF BREATH - dulaglutide (TRULICITY) 3 mg/0.5 mL pen injector Inject 3 mg subcutaneously one time a week. Inject once per week. Discard Pen After - metFORMIN (GLUCOPHAGE) 500 mg tablet TAKE 2 TABLETS TWICE DAILY WITH MEALS - traZODone (DESYREL) 150 mg tablet Take 1 tablet by mouth daily at bedtime. - lisinopril-hydroCHLORO thiazide (ZESTORETIC) 20-25 mg per tablet Take 1 tablet by mouth once daily. - insulin aspart U-100 (NOVOLOG FLEXPEN U-100 INSULIN) 100 unit/mL (3 mL) Inject 4 Units subcutaneously as needed (for blood glucose >200.). - atorvastatin (LIPITOR) 40 mg tablet Take 1 tablet by mouth once daily. - empagliflozin (JARDIANCE) 10 mg tablet Take 1 tablet by mouth once daily. Take 1 tablet once daily in the morning - metoprolol tartrate, short acting, (LOPRESSOR) 50 mg tablet Take 1 tablet by mouth two times a day. - Lancets Test blood sugar(s) 4 times daily. Dx: Type 2 DM - Uncontrolled E11.65 Insulin: Yes - Insulin [place], Disposable, (BD ULTRA-FINE ION PEN NEEDLE) 32 gauge x 5/32 USE DIRECTED FOR EACH DOSE 6 TIMES DAILY (FOR DIABETES) - blood sugar diagnostic (TRUE METRIX GLUCOSE TEST STRIP) test strip Test 4 times per day. Dx: E11.22. Insulin: Yes. - amLODIPine (NORVASC) 10 mg tablet Take 1 tablet by mouth once daily. For high blood pressure. - alcohol swabs (BD SINGLE USE SWABS REGULAR) Apply 1 application to affected area four times daily. Use with Testing with diabetes 4 times a day, insulin dependent E11.65 - Blood-Glucose Meter (TRUE METRIX AIR GLUCOSE METER) monitoring kit Check 4 times a day. Dx: E11.22; N18.3 - Blood Glucose Control, Normal (TRUE METRIX LEVEL 2) soln 1 Bottle as directed. 1 Bottle as directed. Test controls every 2 weeks or as needed,E11.65 Problem List As Of Date 08/22/2024 Noted Resolved Type 2 diabetes mellitus (HCC) [E11.9] 07/11/2015 08/28/2015 Hypertensive kidney disease with stage 3 chroni*07/11/2015 Mixed hyperlipidemia [E78.2] 07/11/2015 Type 2 diabetes mellitus with stage 3b chronic *08/28/2015 Asthmatic bronchitis without complication [J45.*02/27/2015 Insomnia [G47.00] 06/22/2016 Depressive disorder [F32.A] 07/10/2018 Type 2 diabetes mellitus with hyperglycemia, wi*09/16/2020 01/29/2022 Obesity, Class I, BMI 30-34.9 [E66.811] 09/18/2020 Essential hypertension [I10] 02/29/2024 Encounter Status:Closed by MYAH GONZALEZ on 08/22/24 [facility] ALBUMIN/CREAT RATIO CHERRIE Gmable 01-22-2022 Albumin DL <= 20 mg/L (U) [Mass/Vol] 15.8 mg/L [facility] Albumin/Creatinine (U) [Mass ratio] 18 mg/g <30 mg/g [facility] Creatinine (U) [Mass/Vol] 87.8 mg/dL 20.0 - 300.0 mg/dL [facility] Comprehensive metabolic 2000 panelon 01-22-2022 Albumin [Mass/Vol] 4.5 g/dL 3.9 - 4.9 g/dL [facility] ALP [Catalytic activity/Vol] 106 U/L 34 - 123 U/L [facility] ALT [Catalytic activity/Vol] 16 U/L 7 - 38 U/L [facility] Anion gap [Moles/Vol] 13 mmol/L 9 - 18 mmol/L [facility] AST [Catalytic activity/Vol] 16 U/L 13 - 35 U/L [facility] Bilirubin [Mass/Vol] 0.4 mg/dL 0.2 - 1.3 mg/dL [facility] Calcium [Mass/Vol] 10.1 mg/dL 8.5 - 10. 2 mg/dL [facility] Chloride [Moles/Vol] 100 mmol/L 97 - 105 mmol/L [facility] CO2 [Moles/Vol] 26 mmol/L 22 - 30 mmol/L [facility] Creatinine [Mass/Vol] 1.39 mg/dL High 0.58 - 0.96 mg/dL [facility] Estimated Glomerular Filtration Rate 42 mL/min/1.73m Low >=60 mL/min/1.73m [facility] Glucose [Mass/Vol] 128 mg/dL High 74 - 99 mg/dL [facility] Potassium [Moles/Vol] 3.9 mmol/L 3.7 - 5.1 mmol/L [facility] Protein [Mass/Vol] 7.9 g/dL 6.3 - 8.0 g/dL [facility] Sodium [Moles/Vol] 139 mmol/L 136 - 144 mmol/L [facility] Urea nitrogen [Mass/Vol] 25 mg/dL High 7 - 21 mg/dL [facility] HbA1c (Bld)on 01-22-2022 Average glucose Estimated from glycated hemoglobin (Bld) [Mass/Vol] 169 mg/dL [facility] HbA1c (Bld) [Mass fraction] 7.5 % High 4.3 - 5.6 % [facility] Lipid 1996 panelon Cholesterol [Mass/Vol] 160 mg/dL <200 mg/dL [facility] Cholesterol in HDL [Mass/Vol] 35 mg/dL Low >39 mg/dL [facility] Cholesterol in LDL [Mass/Vol] 74 mg/dL <100 mg/dL [facility] Cholesterol in LDL/Cholesterol in HDL [Mass ratio] 2.11 {ratio} <2.54 [facility] Cholesterol in VLDL [Mass/Vol] 51 mg/dL High <30 mg/dL [facility] Cholesterol non HDL [Mass/Vol] 125 mg/dL <130 mg/dL [facility] Cholesterol.total/C holesterol in HDL [Mass ratio] 4.57 {ratio} <5.10 [facility] Fasting Time 12 hrs [facility] Triglyceride [Mass/Vol] 256 mg/dL High <150 mg/dL [facility] Vital Signs Date Time Vital Sign Value Performing Clinician Faci lity 08-30-2024 09:15-0400 Body mass index (BMI) [Ratio] 27.24 kg/m2 Jj Nettles MD Work Phone: [facility] 08-30-2024 09:15-0400 Body temperature 97.9 [degF] Jj Nettles MD Work Phone: [facility] 08-30-2024 09:15-0400 Body weight 69.3 kg Jj Nettles MD Work Phone: [facility] 08-30-2024 09:15-0400 Diastolic blood pressure 68 mm[Hg] Jj Nettles MD Work Phone: [facility] 08-30-2024 09:15-0400 Heart rate 68 /min Jj Nettles MD Work Phone: [facility] 08-30-2024 09:15-0400 Systolic blood pressure 116 mm[Hg] Jj Nettles MD Work Phone: [facility] 02-29-2024 08:38-0400 Diastolic blood pressure 62 mm[Hg] Carly Zabala APRN.MATH AND SCIENCE INSTRUCTOR Work Phone: [facility] 02-29-2024 08:38-0400 Systolic blood pressure 124 mm[Hg] Carly Zabala APRN.MATH AND SCIENCE INSTRUCTOR Work Phone: [facility] 02-29-2024 08:00-0400 Body height 159.5 cm Carly Zabala APRN.MATH AND SCIENCE INSTRUCTOR Work Phone: [facility] 02-29-2024 08:00-0400 Body mass index (BMI) [Ratio] 28.22 kg/m2 Carly Zabala APRN.MATH AND SCIENCE INSTRUCTOR Work Phone: [facility] 02-29-2024 08:00-0400 Body weight 71.8 kg Carly Zabala APRN.MATH AND SCIENCE INSTRUCTOR Work Phone: [facility] 02-29-2024 08:00-0400 Heart rate 64 /min Carly Zabala GRAPE CUTTER.MATH AND SCIENCE INSTRUCTOR Work Phone: [facility] 02-29-2024 08:00-0400 Respiratory rate 16 /min Carly Zabala GRAPE CUTTER.MATH AND SCIENCE INSTRUCTOR Work Phone: [facility] 02-29-2024 08:00-0400 SaO2% (BldA) [Mass fraction] 98 % Carly Zabala APRN.MATH AND SCIENCE INSTRUCTOR Work Phone: [facility] 08-30-2023 09:16-0400 Body temperature 98.29 [degF] Jj Nettles MD Work Phone: [facility] 08-30-2023 09:16-0400 Body weight 69.4 kg Jj Nettles MD Work Phone: [facility] 08-30-2023 09:16-0400 Diastolic blood pressure 64 mm[Hg] Jj Nettles MD Work Phone: [facility] 08-30-2023 09:16-0400 Heart rate 68 /min Jj Nettles MD Work Phone: [facility] 08-30-2023 09:16-0400 Respiratory rate 16 /min Jj Nettles MD Work Phone: [facility] 08-30-2023 09:16-0400 Systolic blood pressure 120 mm[Hg] Jj Nettles MD Work Phone: [facility] 02-25-2023 10:03-0400 Body weight 70.31 kg Jj Nettles MD Work Phone: [facility] 02-25-2023 10:03-0400 Diastolic blood pressure 68 mm[Hg] Jj Nettles MD Work Phone: [facility] 02-25-2023 10:03-0400 Heart rate 68 /min Jj Nettles MD Work Phone: [facility] 02-25-2023 10:03-0400 Respiratory rate 14 /min Jj Nettles MD Work Phone: [facility] 02-25-2023 10:03-0400 SaO2% (BldA) [Mass fraction] 96 % Jj Nettles MD Work Phone: [facility] 02-25-2023 10:03-0400 Systolic blood pressure 114 mm[Hg] Jj Nettles MD Work Phone: [facility] 08-18-2022 09:08-0400 Body weight 73.03 kg Jj Nettles MD Work Phone: [facility] 08-18-2022 09:08-0400 Diastolic blood pressure 66 mm[Hg] Jj Nettles MD Work Phone: [facility] 08-18-2022 09:08-0400 Heart rate 72 /min Jj Nettles MD Work Phone: [facility] 08-18-2022 09:08-0400 Respiratory rate 16 /min Jj Nettles MD Work Phone: [facility] 08-18-2022 09:08-0400 Systolic blood pressure 116 mm[Hg] Jj Nettles MD Work Phone: [facility] Encounters Encounter Date Encounter Type Care Provider Facility Start: 03-14-2025 Patient encounter procedure CARLY ZABALA [facility] Start: 03-14-2025 End: 03-14-2025 ambulatory JJ NETTLES Facility:[facility] Start: 02-07-2025 End: 02-08-2025 Refill Jj Nettles MD Work Phone: [address] [place] [address] Comment on above: Refill Request Start: 09-01-2024 End: 09-01-2024 Follow-up encounter Jj Nettles MD Work Phone: [facility] [place] Start: 08-30-2024 End: 08-30-2024 Office outpatient visit 25 minutes Jj Nettles MD Work Phone: [facility] [place] Comment on above: Type 2 diabetes aissatou itus with stage 3b chronic kidney disease, with long-term current use of insulin (HCC) (Primary Dx); Essential hypertension; Mixed hyperlipidemia; Hypertensive kidney disease with stage 3b chronic kidney disease (HCC); Depressive disorder Start: 08-30-2024 End: 08-30-2024 ambulatory CARLY ZABALA Facility:[facility] Start: 08-27-2024 End: 08-27-2024 ambulatory Jj Nettles MD Work Phone: [facility] Start: 08-27-2024 End: 08-27-2024 Patient encounter procedure Jj Nettles MD Work Phone: [facility] Comment on above: Population Health Na vigation Outreach ([employer] [place] ) Start: 08-22-2024 End: 08-22-2024 Telephone encounter Jj Nettles MD Work Phone: [address] [place] [address] Comment on above: Orders Start: 05-10-2024 End: 05-10-2024 ambulatory Becka Vargas MA [facility] Start: 05-10-2024 End: 05-10-2024 Patient encounter procedure Becka Vargas MA [facility] Comment on above: Population Health Na vigation Outreach ([employer]/[place] ) Start: 03-05-2024 End: 03-05-2024 Telephone encounter Carly Zabala APRN.MATH AND SCIENCE INSTRUCTOR Work Phone: [facility] [place] Comment on above: Medication Problem Start: 02-29-2024 End: 02-29-2024 Patient encounter procedure Carly Zabala APRN.MATH AND SCIENCE INSTRUCTOR Work Phone: [facility] [place] Comment on above: Medicare annual well ness visit, subsequent (Primary Dx); Type 2 diabetes mellitus with stage 3 chronic kidney disease, with long-term current use of insulin (HCC); Insomnia, unspecified type; Essential hypertension; Asthmatic bronchitis without complication, unspecified asthma severity, unspecified whether persistent; Depressive disorder; Encounter for screening examination for other mental health and behavioral disorders; Type 2 diabetes mellitus with stage 3b chronic kidney disease, with long-term current use of insulin (HCC) Start: 11-22-2023 Refill Jj ryan MD Work Phone: [facility] [place] Comment on above: Refill Request Start: 09-29-2023 Refill Jj ryan MD Work Phone: [facility] [place] Comment on above: Refill Request Start: 08-30-2023 End: 08-30-2023 Patient encounter procedure Jj Nettles MD Work Phone: [facility] [place] Comment on above: Type 2 diabetes aissatou itus with stage 3b chronic kidney disease, with long-term current use of insulin (HCC) (Primary Dx); Hypertensive kidney disease with stage 3b chronic kidney disease (HCC); Asthmatic bronchitis without complication, unspecified asthma severity, unspecified whether persistent; Depressive disorder; Insomnia, unspecified type; Encounter for screening for osteoporosis Start: 02-25-2023 End: 02-25-2023 Patient encounter procedure Jj Nettles MD Work Phone: [facility] [place] Comment on above: Medicare annual well ness visit, subsequent (Primary Dx); Asthmatic bronchitis without complication, unspecified asthma severity, unspecified whether persistent; Encounter for immunization; Essential hypertension; Type 2 diabetes mellitus with stage 3b chronic kidney disease, with long-term current use of insulin (HCC); Hypertensive kidney disease with stage 3b chronic kidney disease (HCC) Start: 02-14-2023 ambulatory Calista Leon MA [facility] [place] Comment on above: Population Health Na vigation Outreach ([employer] Care Gap Outreach/MEDICARE WELLNESS EXAM, [employer]) Start: 02-14-2023 Telephone encounter Jj bucio MD Work Phone: [facility] [place] Comment on above: Orders Start: 01-24-2023 Refill Jj ryan MD Work Phone: [address] [place] [address] Comment on above: Refill Request Start: 12-22-2022 Refill Jj ryan MD Work Phone: [facility] [place] Comment on above: Refill Request Start: 08-18-2022 End: 08-18-2022 Patient encounter procedure Jj Nettles MD Work Phone: [facility] [place] Comment on above: Type 2 diabetes aissatou itus with stage 3 chronic kidney disease, with long-term current use of insulin (HCC) (Primary Dx); Hypertensive kidney disease with stage 3b chronic kidney disease (HCC); Mixed hyperlipidemia; Depressive disorder; Type 2 diabetes mellitus with stage 3b chronic kidney disease, with long-term current use of insulin (HCC) Start: 08-17-2022 Refill Jj ryan MD Work Phone: [facility] Comment on above: Refill Request Start: 06-02-2022 Refill jJ ryan MD Work Phone: [facility] [place] Comment on above: Refill Request Start: 04-23-2022 Refill Jj ryan MD Work Phone: [facility] Comment on above: Refill Request Start: 01-29-2022 End: 01-29-2022 Patient encounter procedure Jj Nettles MD Work Phone: [facility] [place] Comment on above: Type 2 diabetes aissatou itus with stage 3b chronic kidney disease, with long-term current use of insulin (HCC) (Primary Dx); Mixed hyperlipidemia; Hypertensive kidney disease with stage 3b chronic kidney disease (HCC); Need for influenza vaccination; Postmenopausal Start: 01-15-2022 Refill Jj ryan MD Work Phone: [facility] [place] Comment on above: Refill Request Start: 01-12-2022 Telephone encounter Jj bucio MD Work Phone: [address] [place] [address] Comment on above: Lab Orders Start: 11-25-2021 ambulatory Jj ryan MD Work Phone: [facility] [place] Start: 09-08-2021 ambulatory Veronica French MA [facility] [place] Comment on above: Population Health Na vigation Outreach ([employer] care gaps) Procedures Date Procedure Procedure Detail Performing Clinician Start: 08-30-2024 Hemoglobin A1c/Hemoglobin.total in Blood Jj Nettles MD Work Phone: Start: 02-25-2023 INFLUENZA VACCINE, P RSV FREE, AGE 65+ YR, HIGH DOSE, QUADRIVALENT (FLUZONE HIGH-DOSE) Jj Nettles MD Work Phone: Start: 01-29-2022 INFLUENZA SEASONAL QUADRIVALENT HIGH DOSE AGE 65+ Jj Nettles MD Work Phone: Start: 07-27-2017 Mammography Veronica posada MA Plan of Treatment Date Care Activity Detail Author Start: 01-28-2026 Urine microalbumin profile [facility] Start: 08-30-2025 Annual PCP Team Can Sorter leonardo Disease Visit Annual PCP Team Chronic Disease Visit [facility] Start: 08-30-2025 BP Controlled (<130/80) BP Controlle d (<130/80) [facility] Start: 08-30-2025 Diabetic foot examination Diabetic Foot Exam [facility] Start: 08-30-2025 Hepatitis B surface antibody level LDL Cholesterol [facility] Start: 03-13-2025 End: 03-13-2025 Patient encounter procedure 03/13/2025 10:40 AM EDT Office Visit [facility] [place] [address] [place], [place] [id number] Jj Nettles MD [address] [place] [id number] [facility] Ex[facility] Comment on above: [facility] Exam Start: 03-01-2025 Hemoglobin A1c measurement HbA1C [facility] Start: 02-28-2025 Annual PCP Team Can Sorter leonardo Disease Visit Annual PCP Team Chronic Disease Visit [facility] Start: 02-28-2025 Anxiety Screening Anxiety Screening [facility] Start: 02-28-2025 BP Controlled (<130/80) BP Controlle d (<130/80) [facility] Start: 02-28-2025 Covid-19 Vaccine ( season) Covid-19 Vaccine ( season) [facility] Comment on above: Postponed from 01/28 (Declined at this time) Start: 02-28-2025 Creatinine measurement Serum Creatin ine [facility] Start: 02-28-2025 Hepatitis B screening Urine Al bumin:Creatinine Ratio [facility] Start: 02-28-2025 RSV Vaccine (1 - Ris k 60-74 years 1-dose series) RSV Vaccine (1 - Risk 60-74 years 1-dose series) [facility] Comment on above: Postponed from 04/18 (Declined at this time) Start: 02-28-2025 Spirometry Spirometry [facility] Comment on above: Postponed from 04/18 (Declined at this time) Start: 02-21-2025 End: 05-23-2025 Comprehensive metabolic 2000 panel - Serum or Plasma COMPREHENSIVE METABOLIC PANEL Lab Routine Type 2 diabetes mellitus with stage 3b chronic kidney disease, with long-term current use of insulin (HCC) Expected: 02/21/2025, Expires: 05/23/2025 [facility] Comment on above: Expected: 02/21/2025 , Expires: 05/23/2025 Start: 02-21-2025 End: 05-23-2025 Hemoglobin A1c in Blood HEMOGLOBIN A1C Lab Routine Type 2 diabetes mellitus with stage 3b chronic kidney disease, with long-term current use of insulin (HCC) Expected: 02/21/2025, Expires: 05/23/2025 [facility] Comment on above: Expected: 02/21/2025 , Expires: 05/23/2025 Start: 02-20-2025 End: 04-22-2025 CBC panel - Blood by Automated count COMPLETE BLOOD COUNT Lab Routine Hypertensive kidney disease with stage 3b chronic kidney disease (HCC) Expected: 02/20/2025, Expires: 04/22/2025 [facility] Comment on above: Expected: 02/20/2025 , Expires: 04/22/2025 Start: 01-28-2025 Influenza vaccination Influenza Vacc ine (#1) [facility] Start: 11-26-2024 Influenza vaccination Influenza Vacc ine (#1) [facility] Comment on above: Postponed from 01/28 (Declined at this time) Start: 08-30-2024 End: 08-30-2024 Patient encounter procedure [facility] Comment on above: Follow up Start: 08-29-2024 Annual PCP Team Can Sorter leonardo Disease Visit Annual PCP Team Chronic Disease Visit [facility] Start: 08-29-2024 Covid-19 Vaccine () Covid-19 Vaccine () [facility] Comment on above: Postponed from 01/28 (Declined at this time) Start: 08-29-2024 Diabetic foot examination Diabetic Foot Exam [facility] Start: 08-29-2024 Hemoglobin A1c measurement HbA1C [facility] Start: 08-25-2024 Complete blood count Hemoglobin/Bruce tocrit [facility] Start: 08-25-2024 Creatinine measurement Serum Creatin ine [facility] Start: 08-25-2024 Hepatitis B surface antibody level LDL Cholesterol [facility] Start: 08-22-2024 End: 11-21-2024 Lipid 1996 panel - Serum or Plasma LIPID PANEL, FASTING Lab Routine Type 2 diabetes mellitus with stage 3b chronic kidney disease, with long-term current use of insulin (HCC) Expected: 08/22/2024, Expires: 11/21/2024 [facility] Work Phone: Comment on above: Expected: 08/22/2024 , Expires: 11/21/2024 Start: 05-30-2024 Advance Directive Discussion Advance Directive Discussion [facility] Start: 05-30-2024 Medicare Advantage Annual Wellness Visit Medicare Advantage Annual Wellness Visit [facility] Start: 02-29-2024 End: 05-30-2024 ALBUMIN/CREAT RATIO RND UR ALBUMIN/CREAT RATIO RND UR Lab Routine Type 2 diabetes mellitus with stage 3b chronic kidney disease, with long-term current use of insulin (HCC) Expected: 02/29/2024, Expires: 05/30/2024 [facility] Work Phone: Comment on above: Expected: 02/29/2024 , Expires: 05/30/2024 Start: 02-29-2024 End: 05-30-2024 Comprehensive metabolic 2000 panel - Serum or Plasma COMP METABOLIC PANEL Lab Routine Type 2 diabetes mellitus with stage 3b chronic kidney disease, with long-term current use of insulin (HCC) Expected: 02/29/2024, Expires: 05/30/2024 [facility] Work Phone: Comment on above: Expected: 02/29/2024 , Expires: 05/30/2024 Start: 02-29-2024 End: 05-30-2024 Hemoglobin A1c in Blood HGB A1C Lab Routine Type 2 diabetes mellitus with stage 3b chronic kidney disease, with long-term current use of insulin (HCC) Expected: 02/29/2024, Expires: 05/30/2024 [facility] Work Phone: Comment on above: Expected: 02/29/2024 , Expires: 05/30/2024 Start: 02-29-2024 End: 02-29-2024 Patient encounter procedure 02/29/2024 11:00 AM EDT Office Visit [facility] [address] [place], [place] [id number] Carly Zabala, GRAPE CUTTER.MATH AND SCIENCE INSTRUCTOR [address] [place] [address] Physical [facility] [place] Comment on above: Physical Start: 02-26-2024 Annual PCP Team Can Sorter leonardo Disease Visit Annual PCP Team Chronic Disease Visit [facility] Start: 02-26-2024 Hemoglobin A1c measurement HbA1C [facility] Start: 02-18-2024 Hepatitis B screening Urine Al bumin:Creatinine Ratio [facility] Start: 02-18-2024 Serum Creatinine Serum Creatinine Cl [facility] Start: 08-26-2023 End: 10-26-2023 Basic metabolic 2000 panel - Serum or Plasma BASIC METABOLIC PNL Lab Routine Type 2 diabetes mellitus with stage 3b chronic kidney disease, with long-term current use of insulin (HCC) Expected: 08/26/2023, Expires: 10/26/2023 [facility] Work Phone: Comment on above: Expected: 08/26/2023 , Expires: 10/26/2023 Start: 08-26-2023 End: 10-26-2023 CBC panel - Blood by Automated count CBC Lab Routine Hypertensive kidney disease with stage 3b chronic kidney disease (HCC) Expected: 08/26/2023, Expires: 10/26/2023 [facility] Work Phone: Comment on above: Expected: 08/26/2023 , Expires: 10/26/2023 Start: 08-26-2023 End: 10-26-2023 Hemoglobin A1c in Blood HGB A1C Lab Routine Type 2 diabetes mellitus with stage 3b chronic kidney disease, with long-term current use of insulin ([facility]) Expected: 08/26/2023, Expires: 10/26/2023 [facility] Work Phone: Comment on above: Expected: 08/26/2023 , Expires: 10/26/2023 Start: 08-26-2023 End: 10-26-2023 Lipid 1996 panel - Serum or Plasma LIPID PANEL BASIC Lab Routine Type 2 diabetes mellitus with stage 3b chronic kidney disease, with long-term current use of insulin ([facility]) Expected: 08/26/2023, Expires: 10/26/2023 [facility] Work Phone: Comment on above: Expected: 08/26/2023 , Expires: 10/26/2023 Start: 08-19-2023 3 comp foot exam completed DIABETIC FOOT EXAM [facility] Start: 08-19-2023 ANNUAL PCP TEAM VP PATIENT LEONARDO DISEASE VISIT ANNUAL PCP TEAM CHRONIC DISEASE VISIT [facility] Start: 08-19-2023 BONE DENSITY BONE DENSITY [facility] Comment on above: Postponed from 04/18 (Declined at this time) Start: 08-19-2023 Bone Density Screening Bone Density Screening [facility] Comment on above: Postponed from 04/18 (Declined at this time) Start: 08-19-2023 COLORECTAL CANCER SCREENING COLORECTAL CANCER SCREENING [facility] Comment on above: Postponed from 04/18 (Declined at this time) Start: 08-19-2023 COVID-19 VACCINE (#1) COVID-19 VACCI NE (#1) [facility] Comment on above: Postponed from 10/16 (Declined at this time) Start: 08-19-2023 Mammography [facility] Comment on above: Postponed from 07/27 (Declined at this time) Start: 08-18-2023 Hemoglobin A1c/Hemoglobin.total in Blood HbA1C [facility] Start: 08-13-2023 HEMOGLOBIN/HEMATOCRIT HEMOGLOBIN/HEM ATOCRIT [facility] Start: 08-13-2023 Hepatitis B surface antibody level LDL CHOLESTEROL [facility] Start: 08-13-2023 SERUM CREATININE SERUM CREATININE [facility] Start: 05-30-2023 Advance Directive Discussion Advance Directive Discussion [facility] Start: 03-27-2023 End: 05-27-2023 Basic metabolic 2000 panel - Serum or Plasma BASIC METABOLIC PNL Lab Routine Type 2 diabetes mellitus with stage 3b chronic kidney disease, with long-term current use of insulin (HCC) Hypertensive kidney disease with stage 3b chronic kidney disease (HCC) Expected: 03/27/2023, Expires: 05/27/2023 [facility] Work Phone: Comment on above: Expected: 03/27/2023 , Expires: 05/27/2023 Start: 02-14-2023 End: 04-16-2023 ALBUMIN/CREAT RATIO RND UR ALBUMIN/CREAT RATIO RND UR Lab Routine Type 2 diabetes mellitus with stage 3b chronic kidney disease, with long-term current use of insulin (HCC) Expected: 02/14/2023, Expires: 04/16/2023 [facility] Work Phone: Comment on above: Expected: 02/14/2023 , Expires: 04/16/2023 Start: 02-14-2023 End: 04-16-2023 Comprehensive metabolic 2000 panel - Serum or Plasma COMP METABOLIC PANEL Lab Routine Type 2 diabetes mellitus with stage 3b chronic kidney disease, with long-term current use of insulin (HCC) Expected: 02/14/2023, Expires: 04/16/2023 [facility] Work Phone: Comment on above: Expected: 02/14/2023 , Expires: 04/16/2023 Start: 02-14-2023 End: 04-16-2023 Hemoglobin A1c in Blood HGB A1C Lab Routine Type 2 diabetes mellitus with stage 3b chronic kidney disease, with long-term current use of insulin (HCC) Expected: 02/14/2023, Expires: 04/16/2023 [facility] Work Phone: Comment on above: Expected: 02/14/2023 , Expires: 04/16/2023 Start: 01-29-2023 3 comp foot exam completed DIABETIC FOOT EXAM [facility] Start: 01-29-2023 ANNUAL PCP TEAM VP PATIENT LEONARDO DISEASE VISIT ANNUAL PCP TEAM CHRONIC DISEASE VISIT [facility] Start: 01-28-2023 Influenza vaccination C [facility] Start: 01-22-2023 Hepatitis B screening URINE AL BUMIN:CREATININE RATIO [facility] Start: 01-22-2023 Hepatitis B surface antibody level LDL CHOLESTEROL [facility] Start: 01-22-2023 SERUM CREATININE SERUM CREATININE Cl [facility] Start: 11-18-2022 End: 01-18-2023 Basic metabolic 2000 panel - Serum or Plasma BASIC METABOLIC PNL Lab Routine Type 2 diabetes mellitus with stage 3 chronic kidney disease, with long-term current use of insulin (HCC) Expected: 11/18/2022, Expires: 01/18/2023 [facility] Work Phone: Comment on above: Expected: 11/18/2022 , Expires: 01/18/2023 Start: 11-18-2022 End: 01-18-2023 Hemoglobin A1c in Blood HGB A1C Lab Routine Type 2 diabetes mellitus with stage 3 chronic kidney disease, with long-term current use of insulin (HCC) Expected: 11/18/2022, Expires: 01/18/2023 [facility] Work Phone: Comment on above: Expected: 11/18/2022 , Expires: 01/18/2023 Start: 11-12-2022 Hemoglobin A1c/Hemoglobin.total in Blood HBA1C [facility] Start: 07-29-2022 End: 09-28-2022 Basic metabolic 2000 panel - Serum or Plasma BASIC METABOLIC PNL Lab Routine Type 2 diabetes mellitus with stage 3b chronic kidney disease, with long-term current use of insulin (HCC) Expected: 07/29/2022, Expires: 09/28/2022 [facility] Work Phone: Comment on above: Expected: 07/29/2022 , Expires: 09/28/2022 Start: 07-29-2022 End: 09-28-2022 CBC panel - Blood by Automated count CBC Lab Routine Hypertensive kidney disease with stage 3b chronic kidney disease (HCC) Expected: 07/29/2022, Expires: 09/28/2022 [facility] Work Phone: Comment on above: Expected: 07/29/2022 , Expires: 09/28/2022 Start: 07-29-2022 End: 09-28-2022 Hemoglobin A1c in Blood HGB A1C Lab Routine Type 2 diabetes mellitus with stage 3b chronic kidney disease, with long-term current use of insulin (HCC) Expected: 07/29/2022, Expires: 09/28/2022 [facility] Work Phone: Comment on above: Expected: 07/29/2022 , Expires: 09/28/2022 Start: 07-29-2022 End: 09-28-2022 Lipid 1996 panel - Serum or Plasma LIPID PANEL BASIC Lab Routine Mixed hyperlipidemia Expected: 07/29/2022, Expires: 09/28/2022 [facility] Work Phone: Comment on above: Expected: 07/29/2022 , Expires: 09/28/2022 Start: 07-25-2022 Hemoglobin A1c/Hemoglobin.total in Blood HBA1C [facility] Start: 05-30-2022 ADVANCE DIRECTIVE DISCUSSION ADVANCE DIRECTIVE DISCUSSION [facility] Start: 04-03-2022 ANNUAL PCP TEAM VP PATIENT LEONARDO DISEASE VISIT ANNUAL PCP TEAM CHRONIC DISEASE VISIT [facility] Start: 04-03-2022 COVID-19 VACCINE (#1) COVID-19 VACCI NE (#1) [facility] Comment on above: Postponed from 10/16 (Declined at this time) Start: 04-03-2022 COVID-19 VACCINE (1) COVID-19 VACCIN E (1) [facility] Comment on above: Postponed from 04/18 (Declined at this time) Start: 03-27-2022 HEMOGLOBIN/HEMATOCRIT HEMOGLOBIN/HEM ATOCRIT [facility] Start: 01-28-2022 Influenza vaccination INFLUENZA (#1) [facility] Start: 10-13-2021 SHINGRIX VACCINE (1 of 2) SHINGRIX VACCINE (1 of 2) [facility] Comment on above: Postponed from 04/18 (Declined at this time) Start: 09-25-2021 Hemoglobin A1c/Hemoglobin.total in Blood HBA1C [facility] Start: 09-18-2021 3 comp foot exam completed DIABETIC FOOT EXAM [facility] Start: 09-11-2021 Hepatitis B screening URINE AL BUMIN:CREATININE RATIO [facility] Start: 09-11-2021 Hepatitis B surface antibody level LDL CHOLESTEROL [facility] Start: 09-11-2021 SERUM CREATININE SERUM CREATININE Cl [facility] Start: 05-30-2021 ADVANCE DIRECTIVE DISCUSSION ADVANCE DIRECTIVE DISCUSSION [facility] Start: 2020 BONE DENSITY BONE DENSITY [facility] Start: 2020 Screening for osteoporosis Bone Density Screening [facility] Start: 07-27-2018 Mammography MAMMOGRAM [facility] Start: 2015 Hepatitis B Vaccine (1 of 3 - Risk 3-dose series) Hepatitis B Vaccine (1 of 3 - Risk 3-dose series) [facility] Start: 2015 RSV Vaccine (1 - 1-d ose 60+ series) RSV Vaccine (1 - 1-dose 60+ series) [facility] Start: 2005 SHINGRIX VACCINE (1 of 2) SHINGRIX VACCINE (1 of 2) [facility] Start: 2000 COLOGUARD (FIT-DNA) COLOGUARD (FIT-D NA) [facility] Start: 2000 Colonoscopy COLONOSCOPY [facility] Start: 2000 COLORECTAL CANCER SCREENING COLORECTAL CANCER SCREENING [facility] Start: [address] COLONOGRAPHY [facility] Start: 2000 FECAL OCCULT BLOOD FECAL OCCULT BLOO D [facility] Start: 2000 Screening for malign ant neoplasm of colon [facility] Start: [address] [facility] Start: 1973 SPIROMETRY SPIROMETRY [facility] Start: 1965 Glaucoma screening Dilated Retinal E xam [facility] Start: 1965 Hepatitis C antibody , confirmatory test DILATED RETINAL EXAM [facility] Start: 1955 COVID-19 VACCINE (#1) COVID-19 VACCI NE (#1) [facility] End: 09-28-2024 BD DXA TRABECULAR BONE SCORE (TBS) BD DXA TRABECULAR BONE SCORE (TBS) Radiology Routine Encounter for screening for osteoporosis 1 Occurrences starting 08/30/2023 until 09/28/2024 [facility] Work Phone: Comment on above: 1 Occurrences starti ng 08/30/2023 until 09/28/2024 End: 02-28-2023 Dxa bone density study 1/> sites axial skel DXA-AXIAL SKELETON Radiology Routine Postmenopausal 1 Occurrences starting 01/29/2022 until 02/28/2023 [facility] Work Phone: Comment on above: 1 Occurrences starti ng 01/29/2022 until 02/28/2023 End: 09-28-2024 DXA Skeletal system.axial Views for bone density DXA-AXIAL SKELETON Radiology Routine Encounter for screening for osteoporosis 1 Occurrences starting 08/30/2023 until 09/28/2024 [facility] Work Phone: Comment on above: 1 Occurrences starti ng 08/30/2023 until 09/28/2024 End: 12-25-2022 Screening mammography bi 2-view breast inc cad RUY SCREENING Radiology Routine Encounter for screening mammogram for breast cancer 1 Occurrences starting 11/25/2021 until 12/25/2022 [facility] Work Phone: Comment on above: 1 Occurrences starti ng 11/25/2021 until 12/25/2022 End: 03-26-2024 SPIROMETRY - BASELINE AND POST DILATOR SPIROMETRY - BASELINE AND POST DILATOR PFT Routine Asthmatic bronchitis without complication, unspecified asthma severity, unspecified whether persistent 1 Occurrences starting 02/25/2023 until 03/26/2024 [facility] Work Phone: Comment on above: 1 Occurrences starti ng 02/25/2023 until 03/26/2024 [facility] Immunizations Immunization Date Immunization Notes Care Provider [facility] 02-25-2023 influenza (HD-IIV4) vaccine, age 65+ yr, high dose, quadrivalent, PF (FLUZONE HIGH-DOSE) Jj Nettles MD Work Phone: [facility] 02-25-2023 influenza virus vaccine, unspecified formulation Carly Zabala APRN.CNP Work Phone: [facility] 01-29-2022 influenza, high-dose , quadrivalent vaccine (FLUZONE HIGH DOSE QUADRIVALENT) Jj Nettles MD Work Phone: [facility] 01-29-2022 influenza virus vaccine, unspecified formulation Jj Nettles MD Work Phone: [facility] 04-03-2021 influenza, high-dose , quadrivalent vaccine (FLUZONE HIGH DOSE QUADRIVALENT) Veronica Minor [facility] 10-13-2020 pneumococcal polysaccharide vaccine, 23 valent Veronica Minor [facility] 02-21-2019 influenza, injectabl e, quadrivalent, contains preservative Veronica Minor [facility] Work Phone: 07-10-2018 influenza, injectabl e, quadrivalent, preservative free Veronica Minor [facility] Work Phone: 06-14-2017 influenza, injectabl e, quadrivalent, contains preservative Veronica Manolo [facility] Work Phone: 01-11-2017 pneumococcal conjuga te vaccine, 13 valent Veronica Minor [facility] 06-22-2016 influenza, injectabl e, quadrivalent, preservative free Veronica Minor [facility] 01-29-2016 tetanus toxoid, redu sergey diphtheria toxoid, and acellular pertussis vaccine, adsorbed Veronica Manolo [facility] 10-09-2015 pneumococcal polysaccharide vaccine, 23 valent Veronica Minor [facility] Payers Date Payer Category Payer Medicare (Managed Care) [employer] G O[employer]US [id number] 2022 Private Health Insurance [id number] 2022 Medicaid [id number] 2021 Medicare HUMANA MEDICARE [employer] GOLD PLUS [id number] 2021-Present [phone] [address] [address] [place] [address] O [id number] 2021 Medicare [id number] 2016 Medicaid MEDICAID [facility] MEDICAID [id number] 2016-Present [phone] [address] [place] [address] Medicaid [id number] 2016 Medicaid [id number] Social History Date Type Detail Facility Start: 06-14-2017 End: 08-18-2022 Tobacco smoking status NHIS Never smoked tobacco [facility] Start: 10-13-2020 End: 02-29-2024 Alcohol intake Current non-drinker of alcohol (finding) [facility] Start: 1955 Sex Assigned At Not on file C [facility] Start: 06-14-2017 End: 08-18-2022 Tobacco use and exposure Smokeless tobacco non-user [facility] Work Phone: Start: 12-18-2021 End: 12-28-2021 Exposure to SARS-CoV-2 (event) Unable to assess [facility] Work Phone: Start: 01-19-2022 End: 01-29-2022 Exposure to SARS-CoV-2 (event) Not sure [facility] Start: 08-18-2022 End: 02-25-2023 History of Social function [facility] Work Phone: Start: 08-18-2022 End: 02-25-2023 Tobacco use panel [facility] Work Phone: Start: 04-30-2012 Adult Depression Screening Assessment 2 [facility] Work Phone: How often to you hav e a drink containing alcohol? Never [facility] Medical Equipment Procedure Code Equipment Code Equipment Original Text Equipment Identifier Dates [id number], [id number], [id number], [id number], [id number], [id number], [id number], [id number] Start: 11-07-2020 End: 08-30-2024 Comment on above: Test 4 times per day . Dx: E11.22. Insulin: Yes. USE DIRECTED FOR EACH DOSE 6 TIMES DAILY (FOR DIABETES) Test blood sugar(s) 4 times daily. Dx: Type 2 DM - Uncontrolled E11.65 Insulin: Yes Functional Status Date Assessment Result Facility 06-06-2019 Are you deaf, or do you have serious difficulty hearing No 06/06/2019 10:17 AM Jj Weston MD No [facility] 06-06-2019 Are you blind, or do you have serious difficulty seeing, even when wearing glasses No 06/06/2019 10:17 AM Jj Weston MD No [facility] 06-06-2019 Do you have serious difficulty walking or climbing stairs No 06/06/2019 10:17 AM Jj Weston MD No [facility] 06-06-2019 Do you have difficul ty dressing or bathing No 06/06/2019 10:17 AM Jj Weston MD No [facility] 06-06-2019 Because of a physica l, mental, or emotional condition, do you have difficulty doing errands alone such as visiting a physician's office or shopping No 06/06/2019 10:17 AM Jj Weston MD No [facility] Mental Status Date Assessment Result Facility 06-06-2019 Because of a physica l, mental, or emotional condition, do you have serious difficulty concentrating, remembering, or making decisions No 06/06/2019 10:17 AM Jj Weston MD No [facility] Clinical Notes 07-11-2015 to 03-25-2025 Telephone Encounter - Blanche iQu - 02/07/2025 12:48 PM EDTTelephone Encounter - Blanche Qiu - 02/07/2025 12:48 PM EDTPatient Jj Ken MD - 08/30/2024 9:28 AM EDT Note Date & Type Note Facility 03-25-2025 Note HNO ID: [id number] Author: JANICE LLAMAS CPhT Service: ? Author Type: Gum Sprayer Type: Progress Notes Filed: 03/25/2025 12:15 Note Text: Patient is identified through a medication adherence outreach initiative based on pharmacy claims data from: [employer] Medication Adherence Category: Hypertension Second Attempt Medication(s) Lisinopril/ Hctz 20/25 mg 1 tab daily Last Filled 10/12/24 for 90 DS, Next fill due 01/30/25 Medication Status per portal/Epic Reconcile Dispense: Filled late - Greater than 7 days after next fill date Date Filled (MM/DD): 03/15/25 Day Supply: 90 Medication Status per Profile Review: No issues per profile review Patient identified by name and Outreach to patient: No outreach required, patient filled medication Janice Llamas CPhT [facility] 03-25-2025 Note Patient Outreach ( PO) DIEGO POPE ([id number]) 1955 F Date Time Provider Department 03/25/25 [facility] During your visit today, we recorded the following information about you: Janice Llamas CPhT 03/25/2025 12:15 PM Signed Patient is identified through a medication adherence outreach initiative based on pharmacy claims data from: [employer] Medication Adherence Category: Hypertension Second Attempt Medication(s) Lisinopril/ Hctz 20/25 mg 1 tab daily Last Filled 10/12/24 for 90 DS, Next fill due 01/30/25 Medication Status per portal/Epic Reconcile Dispense: Filled late - Greater than 7 days after next fill date Date Filled (MM/DD): 03/15/25 Day Supply: 90 Medication Status per Profile Review: No issues per profile review Patient identified by name and Outreach to patient: No outreach required, patient filled medication Janice Llamas CPhT [facility] Allergies As of Date: 03/25/2025 (No Known Allergies) Date Reviewed: 03/14/2025 Reviewed by: Carly Zabala APRN.MATH AND SCIENCE INSTRUCTOR - Fully Assessed Reason for Visit: Allied Health Visit [5] Cmt: Medication Adherence Outreach Prescriptions as of 03/25/2025 - albuterol HFA (VENTOLIN HFA) 90 mcg/actuation inhaler INHALE 2 PUFFS EVERY 6 HOURS NEEDED FOR WHEEZING OR SHORTNESS OF BREATH - lisinopril-hydroCHLOROthiazide (ZESTORETIC) 20-25 mg per tablet Take 1 tablet by mouth once daily. - traZODone (DESYREL) 150 mg tablet Take 1 tablet by mouth daily at bedtime. - alcohol swabs (BD SINGLE USE SWABS REGULAR) Apply 1 application to affected area four times daily. Use with Testing with diabetes 4 times a day, insulin dependent E11.65 - metFORMIN (GLUCOPHAGE) 500 mg tablet Take 1 tablet by mouth two times a day with meals. - insulin degludec (TRESIBA FLEXTOUCH U-200) 200 unit/mL (3 mL) injection Inject 60 Units subcutaneously every morning AND 46 Units daily at bedtime. - dulaglutide (TRULICITY) 3 mg/0.5 mL pen injector Inject 3 mg subcutaneously one time a week. Inject once per week. Discard Pen After - amLODIPine (NORVASC) 10 mg tablet Take 1 tablet by mouth once daily. For high blood pressure. - atorvastatin (LIPITOR) 40 mg tablet Take 1 tablet by mouth once daily. - blood sugar diagnostic (TRUE METRIX GLUCOSE TEST STRIP) test strip Test 4 times per day. Dx: E11.22. Insulin: Yes. - empagliflozin (JARDIANCE) 10 mg tablet Take 1 tablet by mouth once daily. Take 1 tablet once daily in the morning - insulin aspart U-100 (NOVOLOG FLEXPEN U-100 INSULIN) 100 unit/mL (3 mL) Inject 4 Units subcutaneously as needed (for blood glucose >200.). - Insulin [place], Disposable, (BD ULTRA-FINE ION PEN NEEDLE) 32 gauge x 5/32 USE DIRECTED FOR EACH DOSE 6 TIMES DAILY (FOR DIABETES) - Lancets Test blood sugar(s) 4 times daily. Dx: Type 2 DM - Uncontrolled E11.65 Insulin: Yes - metoprolol tartrate, short acting, (LOPRESSOR) 50 mg tablet Take 1 tablet by mouth two times a day. - Blood-Glucose Meter (TRUE METRIX AIR GLUCOSE METER) monitoring kit Check 4 times a day. Dx: E11.22; N18.3 - Blood Glucose Control, Normal (TRUE METRIX LEVEL 2) soln 1 Bottle as directed. 1 Bottle as directed. Test controls every 2 weeks or as needed,E11.65 Problem List As Of Date 03/25/2025 Noted Resolved Type 2 diabetes mellitus (HCC) [E11.9] 07/11/2015 08/28/2015 Hypertensive kidney disease with stage 3 chroni*07/11/2015 Mixed hyperlipidemia [E78.2] 07/11/2015 Type 2 diabetes mellitus with stage 3b chronic *08/28/2015 Asthmatic bronchitis without complication [J45.*02/27/2015 Insomnia [G47.00] 06/22/2016 Depressive disorder [F32.A] 07/10/2018 Type 2 diabetes mellitus with hyperglycemia, wi*09/16/2020 01/29/2022 Obesity, Class I, BMI 30-34.9 [E66.811] 09/18/2020 Essential hypertension [I10] 02/29/2024 Encounter Status:Closed by JANICE LLAMAS on 03/25/[address] [facility] 03-18-2025 Note HNO ID: [id number] Author: ALEJANDRA BYERS MA Service: ? Author Type: Geographic Information Systems Director Type: Progress Notes Filed: 03/18/2025 10:11 Note Text: POPULATION HEALTH NAVIGATION OUTREACH Action/FYI Last OV: 03/14/2025 (AWV) Next OV: 09/11/2025 Patient is due for: KED (uACR ordered on 03/14/2025) CMP completed on 03/14/2025) Dilated Retinal Exam Outcome: Left VM for patient to return call to schedule appointment/address care gaps. MyChart message sent. Reason for Outreach Care Gap/HCC or Scheduling Wellness Visits Care Gaps due: Diabetic Eye Exam KED Patient Contacted: Unable or unnecessary to reach patient: Left message ImageBriefhart message sent Navigation Signature: Alejandra Byers MA March 18, 2025 10:[address] [facility] 03-18-2025 Note Patient Outreach (NE TNAV) DIEGO POPE ([id number]) 1955 F Date Time Provider Department 03/18/25 ALEJANDRA BYERS [facility] During your visit today, we recorded the following information about you: Alejandra Byers MA 03/18/2025 10:11 AM Signed POPULATION HEALTH NAVIGATION OUTREACH Action/ Last OV: 03/14/2025 (AWV) Next OV: 09/11/2025 Patient is due for: KED (uACR ordered on 03/14/2025) CMP completed on 03/14/2025) Dilated Retinal Exam Outcome: Left VM for patient to return call to schedule appointment/address care gaps. [employer] message sent. Reason for Outreach Care Gap/HCC or Scheduling Wellness Visits Care Gaps due: Diabetic Eye Exam KED Patient Contacted: Unable or unnecessary to reach patient: Left message Image[employer]riefhart message sent Navigation Signature: Alejandra Byers MA March 18, 2025 10:09 AM Allergies As of Date: 03/18/2025 (No Known Allergies) Date Reviewed: 03/14/2025 Reviewed by: Carly Zabala, GRAPE CUTTER.MATH AND SCIENCE INSTRUCTOR - Fully Assessed Reason for Visit: Population Health Navigation Outreach [3910] Cmt: Artemio Bragg List Prescriptions as of 03/18/2025 - albuterol HFA (VENTOLIN HFA) 90 mcg/actuation inhaler INHALE 2 PUFFS EVERY 6 HOURS NEEDED FOR WHEEZING OR SHORTNESS OF BREATH - lisinopril-hydroCHLOROthiazide (ZESTORETIC) 20-25 mg per tablet Take 1 tablet by mouth once daily. - traZODone (DESYREL) 150 mg tablet Take 1 tablet by mouth daily at bedtime. - alcohol swabs (BD SINGLE USE SWABS REGULAR) Apply 1 application to affected area four times daily. Use with Testing with diabetes 4 times a day, insulin dependent E11.65 - metFORMIN (GLUCOPHAGE) 500 mg tablet Take 1 tablet by mouth two times a day with meals. - insulin degludec (TRESIBA FLEXTOUCH U-200) 200 unit/mL (3 mL) injection Inject 60 Units subcutaneously every morning AND 46 Units daily at bedtime. - dulaglutide (TRULICITY) 3 mg/0.5 mL pen injector Inject 3 mg subcutaneously one time a week. Inject once per week. Discard Pen After - amLODIPine (NORVASC) 10 mg tablet Take 1 tablet by mouth once daily. For high blood pressure. - atorvastatin (LIPITOR) 40 mg tablet Take 1 tablet by mouth once daily. - blood sugar diagnostic (TRUE METRIX GLUCOSE TEST STRIP) test strip Test 4 times per day. Dx: E11.22. Insulin: Yes. - empagliflozin (JARDIANCE) 10 mg tablet Take 1 tablet by mouth once daily. Take 1 tablet once daily in the morning - insulin aspart U-100 (NOVOLOG FLEXPEN U-100 INSULIN) 100 unit/mL (3 mL) Inject 4 Units subcutaneously as needed (for blood glucose >200.). - Insulin [place], Disposable, (BD ULTRA-FINE ION PEN NEEDLE) 32 gauge x 5/32 USE DIRECTED FOR EACH DOSE 6 TIMES DAILY (FOR DIABETES) - Lancets Test blood sugar(s) 4 times daily. Dx: Type 2 DM - Uncontrolled E1165 Insulin: Yes - metoprolol tartrate, short acting, (LOPRESSOR) 50 mg tablet Take 1 tablet by mouth two times a day. - Blood-Glucose Meter (TRUE METRIX AIR GLUCOSE METER) monitoring kit Check 4 times a day. Dx: E11.22; N18.3 - Blood Glucose Control, Normal (TRUE METRIX LEVEL 2) soln 1 Bottle as directed. 1 Bottle as directed. Test controls every 2 weeks or as needed,E11.65 Problem List As Of Date 03/18/2025 Noted Resolved Type 2 diabetes mellitus (HCC) [E11.9] 07/11/2015 08/28/2015 Hypertensive kidney disease with stage 3 chroni*07/11/2015 Mixed hyperlipidemia [E78.2] 07/11/2015 Type 2 diabetes mellitus with stage 3b chronic *08/28/2015 Asthmatic bronchitis without complication [J45.*02/27/2015 Insomnia [G47.00] 06/22/2016 Depressive disorder [F32.A] 07/10/2018 Type 2 diabetes mellitus with hyperglycemia, wi*09/16/2020 01/29/2022 Obesity, Class I, BMI 30-34.9 [E66.811] 09/18/2020 Essential hypertension [I10] 02/29/2024 Encounter Status:Closed by ALEJANDRA BYERS on 03/18/[address] [facility] 03-14-2025 Note HNO ID: [id number] Author: CARLY ZABALA APRN.FRANC Service: ? Author Type: Nurse Practitioner Type: Progress Notes Filed: 03/14/2025 08:06 Note Text: Diego Pope is a 69 year old female here for a Medicare wellness visit. Medicare Health Risk Assessment General Health Good Exercise: Minutes/Day 20 min Exercise: Days/Week 2 days Alcohol: Daily Use Never Alcohol: Drinks/Day Patient does not drink Alcohol: 6 or more drinks Never Feel off balance No Concerns: Teeth/Dentures No Concerns: Sexual function No Troubled by feelings Irritable Frequency: Eating healthy diet Not at all ADLs requiring help Driving Safety precautions in home/vehicle Yes Smoke, vape, chews tobacco No Difficulty hearing No Difficulty seeing Yes Current Providers Specialists: I have reviewed specialist-related care of the patient in the medical record. Current care team: Patient Care Team: Jj Nettles MD as PCP - General (Internal Medicine) Carly Zabala APRN.CNP as Supervisor [employer] (Internal Medicine) Medical/Family history review Reviewed and updated problem list, medical/surgical/family/social history, medications, and allergies. Opioid use review Prescribed: No opioid use on file in the last 90 days Patient-reported: No opioid use on file in the last 90 days Depression screening already diagnosed with depression. Recommendation: no further intervention at this time Anxiety screening RAYSA-2 Score: 0 Based on score and interview, patient is: Not at risk for anxiety Screening tool discussed with patient, and I recommend: No further intervention at this time Cognitive screening Mini Cog Score: 3 Cognitive screening reviewed and No further action needed (score 3-5). Functional Observation Was the patient's Timed Up AND Go test unsteady or >= 12 seconds? No Advance Directives Patient was not able to provide a surrogate decision maker or written advance directives Measurements BP 103/68 Pulse 71 Resp 16 Ht 158.8 cm (5' 2.5) Wt 65.9 kg (145 lb 4.5 oz) SpO2 98% BMI 26.15 kg/m? Vision Screening (with glasses): Right: 20/50 Left: 20/ - Both: 50 Assessment/Plan Medicare annual wellness visit, subsequent (Z00.00) - Counseled on healthy diet and regular exercise - Fall avoidance information provided - Personalized prevention plan provided Additional Concerns The following concerns were also discussed with the patient: The patient is a 69-year-old female with a history of HTN and diabetes, presenting for an annual wellness visit. Insomnia/Depression - Taking trazodone at bedtime, denies side effects Diabetes: - Taking Metformin, Trulicity 3 mg, Jardiance, Tresiba 60 units in the morning and 48 units at bedtime, and Novolog PRN. - Monitors blood glucose at home; readings average around 100-110 mg/dL. - Experiences hypoglycemic episodes approximately once a week, with readings as low as 53 mg/dL. - Hypoglycemic episodes often occur in the morning; symptoms include shakiness and sweating. - Last eye exam was several years ago; reports significant vision impairment in the left eye, worsening over the years. - Has not seen an court operations clerk recently due to transportation issues. Hypertension: - Taking lisinopril, hydrochlorothiazide, metoprolol, and amlodipine. - Denies side effects - Does not check BP at home Review of Systems Constitutional: Negative for chills, diaphoresis, fatigue and fever. Respiratory: Negative for cough, shortness of breath and wheezing. Cardiovascular: Negative for chest pain, palpitations and leg swelling. Neurological: Negative for dizziness, syncope, weakness and light-headedness. Objective: BP 103/68 Pulse 71 Resp 16 Ht 158.8 cm (5' 2.5) Wt 65.9 kg (145 lb 4.5 oz) SpO2 98% BMI 26.15 kg/m? Physical Exam Vitals reviewed. Constitutional: Appearance: Normal appearance. Cardiovascular: Rate and Rhythm: Normal rate and regular rhythm. Heart sounds: Normal heart sounds. No murmur heard. Pulmonary: Effort: Pulmonary effort is normal. Breath sounds: Normal breath sounds. No wheezing, rhonchi or rales. Skin: General: Skin is warm and dry. Neurological: Mental Status: She is alert. Psychiatric: Attention and Perception: Attention normal. Mood and Affect: Affect is blunt. Speech: Speech normal. Behavior: Behavior is cooperative. DATA REVIEWED: Most recent labs Assessment/Plan: 1. Medicare annual wellness visit, subsequent (Z00.00): See Medicare Wellness plan 2. Type 2 diabetes mellitus with stage 3b chronic kidney disease, with long-term current use of insulin (HCC) (E11.22): Generally stable with intermittent hypoglycemia (noted readings as low as 53 mg/dL). - Reduced bedtime Tresiba from 48 units to 46 units to mitigate low glucose episodes. - Continued Trulicity 3 mg weekly, Jardiance, Novolog as needed, and Metformin (1 tablet daily). - Advised continue (more content not included)... [facility] 03-05-2025 Note HNO ID: [id number] Author: JANICE LLAMAS CPhT Service: ? Author Type: Gum Sprayer Type: Progress Notes Filed: 03/15/2025 12:15 Note Text: Patient is identified through a medication adherence outreach initiative based on pharmacy claims data from: [employer] Medication Adherence Category: Hypertension First Review Attribution Status: Correct attribution Medication(s) Lisinopril-HCTZ 20-25 mg Last Filled 10/12/24 for 90 DS, Next fill due 01/30/25 Filled 08/01/23, 10/20/23, 01/04/24, 03/12/24, 05/23/24, 08/04/24 all 90 ds Medication Status per portal/Epic Reconcile Dispense: Not filled Medication Status per Profile Review: No issues per profile review Patient/provider appropriate for outreach? Yes Patient identified by name and Outreach to patient: Spoke to patient Med Adherence Concern: Patient has overstock What was primary intervention? Remind patient to burr picker or fill Aracelis Sampson CPhT [facility] Based [facility] Pharmacy Team [facility] 03-05-2025 Note Patient Outreach ( POHE) DIEGO POPE ([id number]) 1955 F Date Time Provider Department 03/05/25 JJ NETTLES During your visit today, we recorded the following information about you: Aracelis Sampson CPhT 03/05/2025 11:53 AM Addendum Patient is identified through a medication adherence outreach initiative based on pharmacy claims data from: [facility] [employer] Medication Adherence Category: Hypertension First Review Attribution Status: Correct attribution Medication(s) Lisinopril-HCTZ 20-25 mg Last Filled 10/12/24 for 90 DS, Next fill due 01/30/25 Filled 08/01/23, 10/20/23, 01/04/24, 03/12/24, 05/23/24, 08/04/24 all 90 ds Medication Status per portal/Epic Reconcile Dispense: Not filled Medication Status per Profile Review: No issues per profile review Patient/provider appropriate for outreach? Yes Patient identified by name and Outreach to patient: Spoke to patient Med Adherence Concern: Patient has overstock What was primary intervention? Remind patient to burr picker or fill Aracelis Sampson CPhT [facility] Team Allergies As of Date: 03/05/2025 (No Known Allergies) Date Reviewed: 08/30/2024 Reviewed by: Myah Gonzalez LPN - Fully Assessed Reason for Visit: Allied Health Visit [5] Cmt: Medication Adherence Outreach Prescriptions as of 03/15/2025 - albuterol HFA (VENTOLIN HFA) 90 mcg/actuation inhaler INHALE 2 PUFFS EVERY 6 HOURS NEEDED FOR WHEEZING OR SHORTNESS OF BREATH - lisinopril-hydroCHLOROthiazide (ZESTORETIC) 20-25 mg per tablet Take 1 tablet by mouth once daily. - traZODone (DESYREL) 150 mg tablet Take 1 tablet by mouth daily at bedtime. - alcohol swabs (BD SINGLE USE SWABS REGULAR) Apply 1 application to affected area four times daily. Use with Testing with diabetes 4 times a day, insulin dependent E11.65 - metFORMIN (GLUCOPHAGE) 500 mg tablet Take 1 tablet by mouth two times a day with meals. - insulin degludec (TRESIBA FLEXTOUCH U-200) 200 unit/mL (3 mL) injection Inject 60 Units subcutaneously every morning AND 46 Units daily at bedtime. - dulaglutide (TRULICITY) 3 mg/0.5 mL pen injector Inject 3 mg subcutaneously one time a week. Inject once per week. Discard Pen After - amLODIPine (NORVASC) 10 mg tablet Take 1 tablet by mouth once daily. For high blood pressure. - atorvastatin (LIPITOR) 40 mg tablet Take 1 tablet by mouth once daily. - blood sugar diagnostic (TRUE METRIX GLUCOSE TEST STRIP) test strip Test 4 times per day. Dx: E11.22. Insulin: Yes. - empagliflozin (JARDIANCE) 10 mg tablet Take 1 tablet by mouth once daily. Take 1 tablet once daily in the morning - insulin aspart U-100 (NOVOLOG FLEXPEN U-100 INSULIN) 100 unit/mL (3 mL) Inject 4 Units subcutaneously as needed (for blood glucose >200.). - Insulin [place], Disposable, (BD ULTRA-FINE ION PEN NEEDLE) 32 gauge x 5/32 USE DIRECTED FOR EACH DOSE 6 TIMES DAILY (FOR DIABETES) - Lancets Test blood sugar(s) 4 times daily. Dx: Type 2 DM - Uncontrolled E11.65 Insulin: Yes - metoprolol tartrate, short acting, (LOPRESSOR) 50 mg tablet Take 1 tablet by mouth two times a day. - Blood-Glucose Meter (TRUE METRIX AIR GLUCOSE METER) monitoring kit Check 4 times a day. Dx: E11.22; N18.3 - Blood Glucose Control, Normal (TRUE METRIX LEVEL 2) soln 1 Bottle as directed. 1 Bottle as directed. Test controls every 2 weeks or as needed,E11.65 Problem List As Of Date 03/05/2025 Noted Resolved Type 2 diabetes mellitus (HCC) [E11.9] 07/11/2015 08/28/2015 Hypertensive kidney disease with stage 3 chroni*07/11/2015 Mixed hyperlipidemia [E78.2] 07/11/2015 Type 2 diabetes mellitus with stage 3b chronic *08/28/2015 Asthmatic bronchitis without complication [J45.*02/27/2015 Insomnia [G47.00] 06/22/2016 Depressive disorder [F32.A] 07/10/2018 Type 2 diabetes mellitus with hyperglycemia, wi*09/16/2020 01/29/2022 Obesity, Class I, BMI 30-34.9 [E66.811] 09/18/2020 Essential hypertension [I10] 02/29/2024 Encounter Status:Closed by ARACELIS SAMPSON on 03/05/[address] [facility] 02-21-2025 Note HNO ID: [id number] Author: ?, ?, ? Service: ? Author Type: ? Type: Progress Notes Filed: 03/25/2025 03:03 Note Text: POPULATION HEALTH NAVIGATION OUTREACH Action/FYI Patient outreach for HM due; ILA, TIFFANY,Ben Spoke with patient and will have orders pended. Wants flu at appointment. TIFFANY pt needs to coordinate ride. Dr. Nettles, Please approve these orders for the patient to be completed prior to their appointment. Additionally, feel free to place any other orders you deem necessary. Thank you! Pended Orders ID Status Description Pended By When Reason [id number] Pended ALBUMIN/CREATININE RATIO, URINE Radha Ceballos 02/21/25 1107 Reason for Outreach Care Gap/HCC or Scheduling Wellness Visits Care Gaps due: Diabetic Eye Exam KENahum Flu Vaccine Patient Contacted: Spoke to patient/parent/or legal guardian Patient identified by name and : Yes Care Gap/HCC/Scheduling Wellness actions taken: Patient scheduled/pended orders: ILA 03/14/2025 in [facility] with CARLY ZABALA - ANNual Wellness Exam, HM due; TIFFANY 03/14/[address] [facility] DRAW STATION with [facility] - Routine Navigation Signature: Radha Parr Pss February 21, 2025 11:[address] [facility] 02-21-2025 Note Patient Outreach (MERLY R[place]) DIEGO POPE ([id number]) 1955 F Date Time Provider Department 02/21/25 JJ NETTLES During your visit today, we recorded the following information about you: Keshav WrightRadha 03/25/2025 3:03 AM Signed POPULATION HEALTH NAVIGATION OUTREACH Action/FYI Patient outreach for HM due; KENahum, TIFFANY,Flu Spoke with patient and will have orders pended. Wants flu at appointment. TIFFANY pt needs to coordinate ride. Dr. Nettles, Please approve these orders for the patient to be completed prior to their appointment. Additionally, feel free to place any other orders you deem necessary. Thank you! Pended Orders ID Status Description Pended By When Reason [id number] Pended ALBUMIN/CREATININE RATIO, URINE Keshav KyleRadha 02/21/25 1107 Reason for Outreach Care Gap/HCC or Scheduling Wellness Visits Care Gaps due: Diabetic Eye Exam KEN[place]um Flu Vaccine Patient Contacted: Spoke to patient/parent/or legal guardian Patient identified by name and : Yes Care Gap/HCC/Scheduling Wellness actions taken: Patient scheduled/pended orders: KENahum 03/14/2025 in [facility] with CARLY ZABALA - ANNual Wellness Exam, HM due; TIFFANY 03/14/2025 in [facility] - Routine Navigation Signature: Radha Wright February 21, 2025 11:03 AM Allergies As of Date: 02/21/2025 (No Known Allergies) Date Reviewed: 08/30/2024 Reviewed by: Myah Gonzalez LPN - Fully Assessed Reason for Visit: Population Health Navigation Outreach [[id number]] Cmt: Artemio Ray Primary Visit Diagnosis:Type 2 diabetes mellitus with stage 3b chronic kidney disease, with long-term current use of insulin (HCC) [E11.22, N18.32, Z79.4] Prescriptions as of 03/25/2025 - albuterol HFA (VENTOLIN HFA) 90 mcg/actuation inhaler INHALE 2 PUFFS EVERY 6 HOURS NEEDED FOR WHEEZING OR SHORTNESS OF BREATH - lisinopril-hydroCHLOROthiazide (ZESTORETIC) 20-25 mg per tablet Take 1 tablet by mouth once daily. - traZODone (DESYREL) 150 mg tablet Take 1 tablet by mouth daily at bedtime. - alcohol swabs (BD SINGLE USE SWABS REGULAR) Apply 1 application to affected area four times daily. Use with Testing with diabetes 4 times a day, insulin dependent E11.65 - metFORMIN (GLUCOPHAGE) 500 mg tablet Take 1 tablet by mouth two times a day with meals. - insulin degludec (TRESIBA FLEXTOUCH U-200) 200 unit/mL (3 mL) injection Inject 60 Units subcutaneously every morning AND 46 Units daily at bedtime. - dulaglutide (TRULICITY) 3 mg/0.5 mL pen injector Inject 3 mg subcutaneously one time a week. Inject once per week. Discard Pen After - amLODIPine (NORVASC) 10 mg tablet Take 1 tablet by mouth once daily. For high blood pressure. - atorvastatin (LIPITOR) 40 mg tablet Take 1 tablet by mouth once daily. - blood sugar diagnostic (TRUE METRIX GLUCOSE TEST STRIP) test strip Test 4 times per day. Dx: E11.22. Insulin: Yes. - empagliflozin (JARDIANCE) 10 mg tablet Take 1 tablet by mouth once daily. Take 1 tablet once daily in the morning - insulin aspart U-100 (NOVOLOG FLEXPEN U-100 INSULIN) 100 unit/mL (3 mL) Inject 4 Units subcutaneously as needed (for blood glucose >200.). - Insulin [place], Disposable, (BD ULTRA-FINE ION PEN NEEDLE) 32 gauge x 5/32 USE DIRECTED FOR EACH DOSE 6 TIMES DAILY (FOR DIABETES) - Lancets Test blood sugar(s) 4 times daily. Dx: Type 2 DM - Uncontrolled E11.65 Insulin: Yes - metoprolol tartrate, short acting, (LOPRESSOR) 50 mg tablet Take 1 tablet by mouth two times a day. - Blood-Glucose Meter (TRUE METRIX AIR GLUCOSE METER) monitoring kit Check 4 times a day. Dx: E11.22; N18.3 - Blood Glucose Control, Normal (TRUE METRIX LEVEL 2) soln 1 Bottle as directed. 1 Bottle as directed. Test controls every 2 weeks or as needed,E11.65 Problem List As Of Date 02/21/2025 Noted Resolved Type 2 diabetes mellitus (HCC) [E11.9] 07/11/2015 08/28/2015 Hypertensive kidney disease with stage 3 chroni*07/11/2015 Mixed hyperlipidemia [E78.2] 07/11/2015 Type 2 diabetes mellitus with stage 3b chronic *08/28/2015 Asthmatic bronchitis without complication [J45.*02/27/2015 Insomnia [G47.00] 06/22/2016 Depressive disorder [F32.A] 07/10/2018 Type 2 diabetes mellitus with hyperglycemia, wi*09/16/2020 01/29/2022 Obesity, Class I, BMI 30-34.9 [E66.811] 09/18/2020 Essential hypertension [I10] 02/29/2024 Encounter Status:Closed by TOOTIE VIVEROS on 03/25/[address] [facility] 02-07-2025 Telephone encounter Note Prescription Refill Information The patient has been identified by name and date of : Yes Caregiver verified no other encounters exist for this prescription request: Yes Caregiver confirmed with patient/requestor that no other refills are due, in the near future, with this provider at this time: Yes The last office visit in the department: 08/30/24 Does the patient have a future office visit with this provider/department: Yes 03/13/25 Requested Prescriptions Pending Prescriptions Disp Refills dulaglutide (TRULICITY) 3 mg/0.5 mL pen injector 6 mL 3 Sig: Inject 3 mg subcutaneously one time a week. Inject once per week. Discard Pen After Blanche Qiu February 07, 2025 12:48 PM [facility] 02-07-2025 Miscellaneous Notes Prescription Refill Information The patient has been identified by name and date of : Yes Caregiver verified no other encounters exist for this prescription request: Yes Caregiver confirmed with patient/requestor that no other refills are due, in the near future, with this provider at this time: Yes The last office visit in the department: 08/30/24 Does the patient have a future office visit with this provider/department: Yes 03/13/25 Requested Prescriptions Pending Prescriptions Disp Refills dulaglutide (TRULICITY) 3 mg/0.5 mL pen injector 6 mL 3 Sig: Inject 3 mg subcutaneously one time a week. Inject once per week. Discard Pen After Blanche Qiu February 07, 2025 12:48 PM documented in this encounter [facility] 08-30-2024 Instructions Jj Nettles MD - 08/30/2024 9:46 AM EDT SCHEDULE BONE DENSITY XRAY. THE ORDER WILL THIS MONTH. FASTING BLOOD WORK IN . EYE EXAM ORDERED. documented in this encounter [facility] 08-30-2024 Note HNO ID: [id number] Author: JJ NETTLES MD Service: ? Author Type: Physician Type: Progress Notes Filed: 08/30/2024 09:53 Note Text: This note was created using [employer]. Subjective Patient presents with: F/U 6 months Diego Pope is a 69 year old female. She was doing well. She reduced her Tresiba to 48 units at bedtime one month ago, due to low glucose readings and this has improved. Her hypertension was controlled. Lipid panel was pending. Review of Systems Constitutional: Negative for fatigue and fever. HENT: Negative for congestion. Eyes: Negative for visual disturbance. Respiratory: Negative for cough and shortness of breath. Cardiovascular: Negative for chest pain, palpitations and leg swelling. Gastrointestinal: Negative for abdominal pain, constipation, diarrhea, nausea and vomiting. Genitourinary: Negative for dysuria. Neurological: Negative for dizziness, numbness and headaches. ACTIVE PROBLEM LIST Hypertensive Kidney Disease With Stage 3 Chronic Kidney Disease (Hcc) Mixed Hyperlipidemia Type 2 Diabetes Mellitus With Stage 3b Chronic Kidney Disease, With Long-Term Current Use of Insulin (Hcc) Asthmatic Bronchitis Without Complication (Hcc) Insomnia Depressive Disorder Obesity, Class I, Bmi 30-34.9 Essential Hypertension Social History Tobacco Use Smoking status: Never Smokeless tobacco: Never Substance Use Topics Alcohol use: No Drug use: No Current Outpatient Medications Medication Sig insulin degludec (TRESIBA FLEXTOUCH U-200) 200 unit/mL (3 mL) injection Inject 60 Units subcutaneously every morning AND 54 Units daily at bedtime. albuterol HFA (VENTOLIN HFA) 90 mcg/actuation inhaler INHALE 2 PUFFS EVERY 6 HOURS NEEDED FOR WHEEZING OR SHORTNESS OF BREATH dulaglutide (TRULICITY) 3 mg/0.5 mL pen injector Inject 3 mg subcutaneously one time a week. Inject once per week. Discard Pen After metFORMIN (GLUCOPHAGE) 500 mg tablet TAKE 2 TABLETS TWICE DAILY WITH MEALS traZODone (DESYREL) 150 mg tablet Take 1 tablet by mouth daily at bedtime. lisinopril-hydroCHLOROthiazide (ZESTORETIC) 20-25 mg per tablet Take 1 tablet by mouth once daily. insulin aspart U-100 (NOVOLOG FLEXPEN U-100 INSULIN) 100 unit/mL (3 mL) Inject 4 Units subcutaneously as needed (for blood glucose >200.). atorvastatin (LIPITOR) 40 mg tablet Take 1 tablet by mouth once daily. empagliflozin (JARDIANCE) 10 mg tablet Take 1 tablet by mouth once daily. Take 1 tablet once daily in the morning metoprolol tartrate, short acting, (LOPRESSOR) 50 mg tablet Take 1 tablet by mouth two times a day. Lancets Test blood sugar(s) 4 times daily. Dx: Type 2 DM - Uncontrolled E11.65 Insulin: Yes Insulin [place], Disposable, (BD ULTRA-FINE ION PEN NEEDLE) 32 gauge x 5/32 USE DIRECTED FOR EACH DOSE 6 TIMES DAILY (FOR DIABETES) amLODIPine (NORVASC) 10 mg tablet Take 1 tablet by mouth once daily. For high blood pressure. alcohol swabs (BD SINGLE USE SWABS REGULAR) Apply 1 application to affected area four times daily. Use with Testing with diabetes 4 times a day, insulin dependent E11.65 Blood-Glucose Meter (TRUE METRIX AIR GLUCOSE METER) monitoring kit Check 4 times a day. Dx: E11.22; N18.3 Blood Glucose Control, Normal (TRUE METRIX LEVEL 2) soln 1 Bottle as directed. 1 Bottle as directed. Test controls every 2 weeks or as needed,E11.65 No current facility-administered medications for this visit. Objective BP 116/68 (BP Site: Left Arm, BP Position: Sitting, BP Cuff Size: Large Adult) Pulse 68 Temp 36.6 ?C (97.9 ?F) (Temporal) Wt 69.3 kg (152 lb 12.5 oz) BMI 27.24 kg/m? Physical Exam Constitutional: General: She is not in acute distress. Appearance: She is not ill-appearing. HENT: Head: Normocephalic. Eyes: General: No scleral icterus. Conjunctiva/sclera: Conjunctivae normal. Cardiovascular: Rate and Rhythm: Normal rate and regular rhythm. Heart sounds: No murmur heard. No gallop. Pulmonary: Breath sounds: Normal breath sounds. Abdominal: Palpations: Abdomen is soft. Tenderness: There is no abdominal tenderness. Musculoskeletal: Right lower leg: No edema. Left lower leg: No edema. Neurological: Mental Status: She is alert. Gait: Gait normal. Feet:Shoes and socks removed, No deformities, ulcers, calluses, normal distal pulses, and sensitive to 10 gm monofilament. Latest Ref Rng 08/30/2024 Hemoglobin A1C (POCT) 4.3 - 5.6 % 5.6 Glucose meter data, glucose log or CGM data were reviewed for the past month. Range: 58-140. Average: 115. Patient was testing 2 to 3/day . Assessment and Plan 1. Type 2 diabetes mellitus with stage 3b chronic kidney disease, with long-term current use of insulin ([facility]) - ICD9: 250.40, 585.3, V58.67, ICD10: E11.22, N18.32, Z79.4 (primary diagnosis) - Controlled - Continue current medications - BLOOD SUGAR DIAGNOSTIC STRIPS - DULAGLUTIDE 3 MG/0.5 ML SUBCUTANEOUS PEN INJECTOR - EMPAGLIFLOZIN (more content not included)... [facility] 08-30-2024 History of Presen t illness Narrative This note was created using [employer]. Subjective Patient presents with: F/U 6 months Diego Pope is a 69 year old female. She was doing well. She reduced her Tresiba to 48 units at bedtime one month ago, due to low glucose readings and this has improved. Her hypertension was controlled. Lipid panel was pending. Review of Systems Constitutional: Negative for fatigue and fever. HENT: Negative for congestion. Eyes: Negative for visual disturbance. Respiratory: Negative for cough and shortness of breath. Cardiovascular: Negative for chest pain, palpitations and leg swelling. Gastrointestinal: Negative for abdominal pain, constipation, diarrhea, nausea and vomiting. Genitourinary: Negative for dysuria. Neurological: Negative for dizziness, numbness and headaches. ACTIVE PROBLEM LIST Hypertensive Kidney Disease With Stage 3 Chronic Kidney Disease (Hcc) Mixed Hyperlipidemia Type 2 Diabetes Mellitus With Stage 3b Chronic Kidney Disease, With Long-Term Current Use of Insulin (Hcc) Asthmatic Bronchitis Without Complication (Hcc) Insomnia Depressive Disorder Obesity, Class I, Bmi 30-34.9 Essential Hypertension Social History Tobacco Use Smoking status: Never Smokeless tobacco: Never Substance Use Topics Alcohol use: No Drug use: No Current Outpatient Medications Medication Sig insulin degludec (TRESIBA FLEXTOUCH U-200) 200 unit/mL (3 mL) injection Inject 60 Units subcutaneously every morning AND 54 Units daily at bedtime. albuterol HFA (VENTOLIN HFA) 90 mcg/actuation inhaler INHALE 2 PUFFS EVERY 6 HOURS NEEDED FOR WHEEZING OR SHORTNESS OF BREATH dulaglutide (TRULICITY) 3 mg/0.5 mL pen injector Inject 3 mg subcutaneously one time a week. Inject once per week. Discard Pen After metFORMIN (GLUCOPHAGE) 500 mg tablet TAKE 2 TABLETS TWICE DAILY WITH MEALS traZODone (DESYREL) 150 mg tablet Take 1 tablet by mouth daily at bedtime. lisinopril-hydroCHLOROthiazide (ZESTORETIC) 20-25 mg per tablet Take 1 tablet by mouth once daily. insulin aspart U-100 (NOVOLOG FLEXPEN U-100 INSULIN) 100 unit/mL (3 mL) Inject 4 Units subcutaneously as needed (for blood glucose >200.). atorvastatin (LIPITOR) 40 mg tablet Take 1 tablet by mouth once daily. empagliflozin (JARDIANCE) 10 mg tablet Take 1 tablet by mouth once daily. Take 1 tablet once daily in the morning metoprolol tartrate, short acting, (LOPRESSOR) 50 mg tablet Take 1 tablet by mouth two times a day. Lancets Test blood sugar(s) 4 times daily. Dx: Type 2 DM - Uncontrolled E11.65 Insulin: Yes Insulin [place], Disposable, (BD ULTRA-FINE ION PEN NEEDLE) 32 gauge x 5/32 USE DIRECTED FOR EACH DOSE 6 TIMES DAILY (FOR DIABETES) amLODIPine (NORVASC) 10 mg tablet Take 1 tablet by mouth once daily. For high blood pressure. alcohol swabs (BD SINGLE USE SWABS REGULAR) Apply 1 application to affected area four times daily. Use with Testing with diabetes 4 times a day, insulin dependent E11.65 Blood-Glucose Meter (TRUE METRIX AIR GLUCOSE METER) monitoring kit Check 4 times a day. Dx: E11.22; N18.3 Blood Glucose Control, Normal (TRUE METRIX LEVEL 2) soln 1 Bottle as directed. 1 Bottle as directed. Test controls every 2 weeks or as needed,E11.65 No current facility-administered medications for this visit. Objective BP 116/68 (BP Site: Left Arm, BP Position: Sitting, BP Cuff Size: Large Adult) Pulse 68 Temp 36.6 C (97.9 F) (Temporal) Wt 69.3 kg (152 lb 12.5 oz) BMI 27.24 kg/m Physical Exam Constitutional: General: She is not in acute distress. Appearance: She is not ill-appearing. HENT: Head: Normocephalic. Eyes: General: No scleral icterus. Conjunctiva/sclera: Conjunctivae normal. Cardiovascular: Rate and Rhythm: Normal rate and regular rhythm. Heart sounds: No murmur heard. No gallop. Pulmonary: Breath sounds: Normal breath sounds. Abdominal: Palpations: Abdomen is soft. Tenderness: There is no abdominal tenderness. Musculoskeletal: Right lower leg: No edema. Left lower leg: No edema. Neurological: Mental Status: She is alert. Gait: Gait normal. Feet:Shoes and socks removed, No deformities, ulcers, calluses, normal distal pulses, and sensitive to 10 gm monofilament. Latest Ref Rng 08/30/2024 Hemoglobin A1C (POCT) 4.3 - 5.6 % 5.6 Glucose meter data, glucose log or CGM data were reviewed for the past month. Range: 58-140. Average: 115. Patient was testing 2 to 3/day . Assessment and Plan 1. Type 2 diabetes mellitus with stage 3b chronic kidney disease, with long-term current use of insulin ([facility]) - ICD9: 250.40, 585.3, V58.67, ICD10: E11.22, N18.32, Z79.4 (primary diagnosis) - Controlled - Continue current medications - BLOOD SUGAR DIAGNOSTIC STRIPS - DULAGLUTIDE 3 MG/0.5 ML SUBCUTANEOUS PEN INJECTOR - EMPAGLIFLOZIN 10 MG TABLET - INSULIN ASPART (U-100) 100 UNIT/ML (3 ML) SUBCUTANEOUS PEN - INSULIN DEGLUDEC (U-200) 200 UNIT/ML (3 ML) SUBCUTANEOUS PEN - PEN NEEDLE, DIABETIC 32 GAUGE X - LANCETS - HEMOGLOBIN A1C (POC) - CONSULT TO OPHTHALMOLOGY 2. Essential hypertension - ICD9: 401.9, ICD10: I10 - Controlled - Continue current medications - AMLODIPINE 10 MG TABLET - METOPROLOL TARTRATE 50 MG TABLET 3. Mixed hyperlipidemia - ICD9: 272.2, ICD10: E78.2 - Control undetermined, due for labs - Continue current medications - Lipid panel in process. - ATORVASTATIN 40 MG TABLET 4. Hypertensive kidney disease with stage 3b chronic kidney disease (HCC) - ICD9: 403.90, 585.3, ICD10: I12.9, N18.32 - Controlled 5. Depressive disorder - ICD9: 311, ICD10: F32.A - Controlled. Continue medication. Jj Nettles MD documented in this encounter [facility] 08-27-2024 Note HNO ID: [id number] Author: ?, ?, ? Service: ? Author Type: ? Type: Progress Notes Filed: 08/27/2024 10:56 Note Text: POPULATION HEALTH NAVIGATION OUTREACH Action/FYI Patient outreach for HCC gaps; DIABETIC EYE, KED. AWV scheduled for 03/23. Appointment notes update. Reason for Outreach Care Gap/HCC or Scheduling Wellness Visits Care Gaps due: Diabetic Eye Exam KED Patient Contacted: Unable or unnecessary to reach patient: MyChart message sent HCC related Updated appointment notes Navigation Signature: Radha Wright August 27, 2024 10:[address] [facility] 08-27-2024 History of Presen t illness Narrative POPULATION HEALTH NAVIGATION OUTREACH Action/FYI Patient outreach for HCC gaps; DIABETIC EYE, KED. AWV scheduled for 03/23. Appointment notes update. Reason for Outreach Care Gap/HCC or Scheduling Wellness Visits Care Gaps due: Diabetic Eye Exam KED Patient Contacted: Unable or unnecessary to reach patient: MyChart message sent HCC related Updated appointment notes Navigation Signature: Radha Wright August 27, 2024 10:53 AM documented in this encounter [facility] 08-27-2024 Note Patient Outreach (NE TNAV) DIEGO POPE ([id number]) 1955 F Date Time Provider Department 08/27/24 JJ NETTLES During your visit today, we recorded the following information about you: Radha Ceballos 08/27/2024 10:56 AM Signed POPULATION HEALTH NAVIGATION OUTREACH Action/I Patient outreach for HCC gaps; DIABETIC EYE, KED. AWV scheduled for 03/23. Appointment notes update. Reason for Outreach Care Gap/HCC or Scheduling Wellness Visits Care Gaps due: Diabetic Eye Exam KED Patient Contacted: Unable or unnecessary to reach patient: RIWI message sent HCC related Updated appointment notes Navigation Signature: Radha Wright August 27, 2024 10:53 AM Allergies As of Date: 08/27/2024 (No Known Allergies) Date Reviewed: 02/29/2024 Reviewed by: Carly Zabala, CATHY.MATH AND SCIENCE INSTRUCTOR - Fully Assessed Reason for Visit: Population Health Navigation Outreach [3910] Cmt: Artemio Ray Prescriptions as of 08/27/2024 - insulin degludec (TRESIBA FLEXTOUCH U-200) 200 unit/mL (3 mL) injection Inject 60 Units subcutaneously every morning AND 54 Units daily at bedtime. - albuterol HFA (VENTOLIN HFA) 90 mcg/actuation inhaler INHALE 2 PUFFS EVERY 6 HOURS NEEDED FOR WHEEZING OR SHORTNESS OF BREATH - dulaglutide (TRULICITY) 3 mg/0.5 mL pen injector Inject 3 mg subcutaneously one time a week. Inject once per week. Discard Pen After - metFORMIN (GLUCOPHAGE) 500 mg tablet TAKE 2 TABLETS TWICE DAILY WITH MEALS - traZODone (DESYREL) 150 mg tablet Take 1 tablet by mouth daily at bedtime. - lisinopril-hydroCHLOROthiazide (ZESTORETIC) 20-25 mg per tablet Take 1 tablet by mouth once daily. - insulin aspart U-100 (NOVOLOG FLEXPEN U-100 INSULIN) 100 unit/mL (3 mL) Inject 4 Units subcutaneously as needed (for blood glucose >200.). - atorvastatin (LIPITOR) 40 mg tablet Take 1 tablet by mouth once daily. - empagliflozin (JARDIANCE) 10 mg tablet Take 1 tablet by mouth once daily. Take 1 tablet once daily in the morning - metoprolol tartrate, short acting, (LOPRESSOR) 50 mg tablet Take 1 tablet by mouth two times a day. - Lancets Test blood sugar(s) 4 times daily. Dx: Type 2 DM - Uncontrolled E11.65 Insulin: Yes - Insulin [place], Disposable, (BD ULTRA-FINE ION PEN NEEDLE) 32 gauge x 5/32 USE DIRECTED FOR EACH DOSE 6 TIMES DAILY (FOR DIABETES) - blood sugar diagnostic (TRUE METRIX GLUCOSE TEST STRIP) test strip Test 4 times per day. Dx: E11.22. Insulin: Yes. - amLODIPine (NORVASC) 10 mg tablet Take 1 tablet by mouth once daily. For high blood pressure. - alcohol swabs (BD SINGLE USE SWABS REGULAR) Apply 1 application to affected area four times daily. Use with Testing with diabetes 4 times a day, insulin dependent E11.65 - Blood-Glucose Meter (TRUE METRIX AIR GLUCOSE METER) monitoring kit Check 4 times a day. Dx: E11.22; N18.3 - Blood Glucose Control, Normal (TRUE METRIX LEVEL 2) soln 1 Bottle as directed. 1 Bottle as directed. Test controls every 2 weeks or as needed,E11.65 Problem List As Of Date 08/27/2024 Noted Resolved Type 2 diabetes mellitus (HCC) [E11.9] 07/11/2015 08/28/2015 Hypertensive kidney disease with stage 3 chroni*07/11/2015 Mixed hyperlipidemia [E78.2] 07/11/2015 Type 2 diabetes mellitus with stage 3b chronic *08/28/2015 Asthmatic bronchitis without complication [J45.*02/27/2015 Insomnia [G47.00] 06/22/2016 Depressive disorder [F32.A] 07/10/2018 Type 2 diabetes mellitus with hyperglycemia, wi*09/16/2020 01/29/2022 Obesity, Class I, BMI 30-34.9 [E66.811] 09/18/2020 Essential hypertension [I10] 02/29/2024 Encounter Status:Closed by RADHA CEBALLOS on 08/27/[address] [facility] 08-22-2024 Telephone encounter Note Patient notified, fasting lab order is in to be done prior to her appt 08/30/2024. Myah Gonzalez LPN [facility] 08-22-2024 Miscellaneous Notes Patient notified, fasting lab order is in to be done prior to her appt 08/30/2024. Myah Gonzalez LPN Patient has been identified by name and date of : Yes Patient phones for refill(s): Requested Prescriptions No prescriptions requested or ordered in this encounter Date of last office visit in primary care: 02/29/2024 Date of next office visit in primary care: 08/30/2024 Please advise. Thank you. Myah Gonzalez LPN.' Pt would like labs ordered prior to her 08/30 appt. Please advise, Thank you documented in this encounter [facility] 08-22-2024 Telephone encounter Note Patient has been identified by name and date of : Yes Patient phones for refill(s): Requested Prescriptions No prescriptions requested or ordered in this encounter Date of last office visit in primary care: 02/29/2024 Date of next office visit in primary care: 08/30/2024 Please advise. Thank you. Myah Gonzalez LPN.' [facility] 08-22-2024 Telephone encounter Note Pt would like labs ordered prior to her 08/30 appt. Please advise, Thank you [facility] 05-10-2024 Note HNO ID: [id number] Author: BECKA VARGAS MA Service: ? Author Type: Geographic Information Systems Director Type: Progress Notes Filed: 05/10/2024 14:24 Note Text: POPULATION HEALTH NAVIGATION OUTREACH Action/FYI Spoke to patient and declined scheduling TIFFANY but did schedule 2024 AWV. Topic Due (Y or N) Comments Medicare Wellness Y 2024 PCP Follow up N Mammogram N N Colorectal Cancer Screening N A1C N Controlling BP N Dilated Retinal Exam (TIFFANY) Y KED (UACR and eGFR) Y HCC N Flu Vaccine N Reason for Outreach Care Gap/HCC or Scheduling Wellness Visits Care Gaps due: Medicare Annual Wellness Visit Diabetic Eye Exam Patient Contacted: Spoke to patient/parent/or legal guardian Patient identified by name and : Yes Care Gap/HCC/Scheduling Wellness actions taken: Patient scheduled/pended orders: Medicare Annual Wellness [facility] - Follow up 03/13/2025 in [facility] with JJ NETTLES - ANNual Wellness Exam Navigation Signature: Becka Vargas MA May 10, 2024 2:[address] [facility] 05-10-2024 History of Presen t illness Narrative POPULATION HEALTH NAVIGATION OUTREACH Action/FYI Spoke to patient and declined scheduling TIFFANY but did schedule 2024 AWV. Topic Due (Y or N) Comments Medicare Wellness Y 2024 PCP Follow up N Mammogram N N Colorectal Cancer Screening N A1C N Controlling BP N Dilated Retinal Exam (TIFFANY) Y KED (UACR and eGFR) Y HCC N Flu Vaccine N Reason for Outreach Care Gap/HCC or Scheduling Wellness Visits Care Gaps due: Medicare Annual Wellness Visit Diabetic Eye Exam Patient Contacted: Spoke to patient/parent/or legal guardian Patient identified by name and : Yes Care Gap/HCC/Scheduling Wellness actions taken: Patient scheduled/pended orders: Medicare Annual Wellness Visit 08/30/2024 in [facility] with JJ NETTLES - Follow up 03/13/2025 in [facility] with JJ NETTLES - ANNual Wellness Exam Navigation Signature: Becka Vargas MA May 10, 2024 2:23 PM documented in this encounter [facility] 05-10-2024 Note Patient Outreach (NE TNAV) DIEGO POPE ([id number]) 1955 F Date Time Provider Department 05/10/24 BECKA VARGAS NETNAV During your visit today, we recorded the following information about you: Becka Vargas MA 05/10/2024 2:24 PM Signed POPULATION HEALTH NAVIGATION OUTREACH Action/FYI Spoke to patient and declined scheduling TIFFANY but did schedule 2024 AWV. Topic Due (Y or N) Comments Medicare Wellness Y 2024 PCP Follow up N Mammogram N N Colorectal Cancer Screening N A1C N Controlling BP N Dilated Retinal Exam (TIFFANY) Y KED (UACR and eGFR) Y HCC N Flu Vaccine N Reason for Outreach Care Gap/HCC or Scheduling Wellness Visits Care Gaps due: Medicare Annual Wellness Visit Diabetic Eye Exam Patient Contacted: Spoke to patient/parent/or legal guardian Patient identified by name and : Yes Care Gap/HCC/Scheduling Wellness actions taken: Patient scheduled/pended orders: Medicare Annual Wellness Visit 08/30/2024 in [facility] with JJ NETTLES - Follow up 03/13/2025 in [facility] with JJ NETTLES - ANNual Wellness Exam Navigation Signature: Becka Vargas MA May 10, 2024 2:23 PM Allergies As of Date: 05/10/2024 (No Known Allergies) Date Reviewed: 02/29/2024 Reviewed by: Carly Zabala, GRAPE CUTTER.MATH AND SCIENCE INSTRUCTOR - Fully Assessed Reason for Visit: Population Health Navigation Outreach [3910] Cmt: Karena/Workbekirill/Flor Prescriptions as of 05/10/2024 - insulin degludec (TRESIBA FLEXTOUCH U-200) 200 unit/mL (3 mL) injection Inject 60 Units subcutaneously every morning AND 54 Units daily at bedtime. - albuterol HFA (VENTOLIN HFA) 90 mcg/actuation inhaler INHALE 2 PUFFS EVERY 6 HOURS NEEDED FOR WHEEZING OR SHORTNESS OF BREATH - dulaglutide (TRULICITY) 3 mg/0.5 mL pen injector Inject 3 mg subcutaneously one time a week. Inject once per week. Discard Pen After - metFORMIN (GLUCOPHAGE) 500 mg tablet TAKE 2 TABLETS TWICE DAILY WITH MEALS - traZODone (DESYREL) 150 mg tablet Take 1 tablet by mouth daily at bedtime. - lisinopril-hydroCHLOROthiazide (ZESTORETIC) 20-25 mg per tablet Take 1 tablet by mouth once daily. - insulin aspart U-100 (NOVOLOG FLEXPEN U-100 INSULIN) 100 unit/mL (3 mL) Inject 4 Units subcutaneously as needed (for blood glucose >200.). - atorvastatin (LIPITOR) 40 mg tablet Take 1 tablet by mouth once daily. - empagliflozin (JARDIANCE) 10 mg tablet Take 1 tablet by mouth once daily. Take 1 tablet once daily in the morning - metoprolol tartrate, short acting, (LOPRESSOR) 50 mg tablet Take 1 tablet by mouth two times a day. - Lancets Test blood sugar(s) 4 times daily. Dx: Type 2 DM - Uncontrolled E11.65 Insulin: Yes - Insulin [place], Disposable, (BD ULTRA-FINE ION PEN NEEDLE) 32 gauge x 5/32 USE DIRECTED FOR EACH DOSE 6 TIMES DAILY (FOR DIABETES) - blood sugar diagnostic (TRUE METRIX GLUCOSE TEST STRIP) test strip Test 4 times per day. Dx: E11.22. Insulin: Yes. - amLODIPine (NORVASC) 10 mg tablet Take 1 tablet by mouth once daily. For high blood pressure. - alcohol swabs (BD SINGLE USE SWABS REGULAR) Apply 1 application to affected area four times daily. Use with Testing with diabetes 4 times a day, insulin dependent E11.65 - Blood-Glucose Meter (TRUE METRIX AIR GLUCOSE METER) monitoring kit Check 4 times a day. Dx: E11.22; N18.3 - Blood Glucose Control, Normal (TRUE METRIX LEVEL 2) soln 1 Bottle as directed. 1 Bottle as directed. Test controls every 2 weeks or as needed,E11.65 Problem List As Of Date 05/10/2024 Noted Resolved Type 2 diabetes mellitus (HCC) [E11.9] 07/11/2015 08/28/2015 Hypertensive kidney disease with stage 3 chroni*07/11/2015 Mixed hyperlipidemia [E78.2] 07/11/2015 Type 2 diabetes mellitus with stage 3b chronic *08/28/2015 Asthmatic bronchitis without complication [J45.*02/27/2015 Insomnia [G47.00] 06/22/2016 Depressive disorder [F32.A] 07/10/2018 Type 2 diabetes mellitus with hyperglycemia, wi*09/16/2020 01/29/2022 Obesity, Class I, BMI 30-34.9 [E66.811] 09/18/2020 Essential hypertension [I10] 02/29/2024 Encounter Status:Closed by BECKA VARGAS on 05/10/[address] [facility] 03-05-2024 Telephone encounter Note Patient called and notified that new prescription was sent to pharmacy. Patient voiced understanding. Deborah March RN [facility] 03-05-2024 Miscellaneous Notes Patient called and notified that new prescription was sent to pharmacy. Patient voiced understanding. Deborah March RN Change to 54 units, new prescription sent Carly Zabala APRN.FRANC Patient calls and states that Dottie had called her and told her that there was an issue with one of the prescriptions that was sent to pharmacy on 02/29/2024. Patient could not say which prescription that had the issue. Called and spoke with Farideh at [facility] pharmacy. Farideh states that Tresiba is the medication that is having the issue. HS dose reads 55 units. Pen only goes in the increments on 2. Dosage would have to be an even number of units. Please send updated prescription to pharmacy. Please review and advise, Deborah March RN documented in this encounter [facility] 03-05-2024 Telephone encounter Note Change to 54 units, new prescription sent Carly Zabala APRN.CNP [facility] 03-05-2024 Telephone encounter Note Patient calls and states that [facility] had called her and told her that there was an issue with one of the prescriptions that was sent to pharmacy on 02/29/2024. Patient could not say which prescription that had the issue. Called and spoke with Farideh at [facility] pharmacy. Farideh states that Tresiba is the medication that is having the issue. HS dose reads 55 units. Pen only goes in the increments on 2. Dosage would have to be an even number of units. Please send updated prescription to pharmacy. Please review and advise, Deborah March RN [facility] 02-29-2024 Instructions Carly Zabala APRN.CNP - 02/29/2024 8:34 AM EDT For diabetes: Increase the Trulicity (once a week injection) to 3 mg, finish out what you have left of the 1.5 mg pens. Decrease Tresiba (insulin) to 55 units at bedtime but continue with the 60 units in the morning. For sleep: increase Trazodone to 150 mg at bedtime, new prescription sent. Screening schedule The following prevention plan is recommended: Dilated Retinal Exam Never done RSV Vaccine(1 - Risk 60-74 years 1-dose series) Never done Bone Density Screening Never done WHAT YOU CAN DO TO PREVENT FALLS Many falls can be prevented. By making some changes, you can lower your chances of falling. Four things YOU can do to prevent falls for you* and your caregiver 1. Begin a regular exercise program Exercise is one of the most important ways to lower your chances of falling. It makes you stronger and helps you feel better. Exercises that improve balance and coordination (like Fredi Chi) are the most helpful. Lack of exercise leads to weakness and increases your chances of falling. Ask your doctor or health care provider about the best type of exercise program for you. 2. Have your health care provider review your medicines Have your doctor or pharmacist review all the medicines you take, even cysl-btl-fcobrvi medicines. As you get older, the way medicines work in your body can change. Some medicines, or combinations of medicines, can make you sleepy or dizzy and can cause you to fall. 3. Have your vision checked Have your eyes checked by an eye doctor at least once a year. You may be wearing the wrong glasses or have a condition like glaucoma or cataracts that limits your vision. Poor vision can increase your chances of falling. 4. Make your home safer About half of all falls happen at home. To make your home safer: Remove things you can trip over (like papers, books, clothes, and shoes) from stairs and places where you walk. Remove small throw rugs or use double-sided tape to keep the rugs from slipping. Keep items you use often in cabinets you can reach easily without using a step stool. Have grab bars put in next to your toilet and in the tub or shower. Use non-slip mats in the bathtub and on shower floors. Improve the lighting in your home. As you get older, you need brighter lights to see well. Hang light-weight curtains or shades to reduce glare. Have handrails and lights put in on all staircases. Wear shoes both inside and outside the house. Avoid going barefoot or wearing slippers. For more information, contact: Centers for Disease Control and Prevention www.cdc.gov/injury * This information may not apply if you have certain medical conditions. documented in this encounter [facility] 02-29-2024 History of Presen t illness Narrative Images from the original note were not included. Diego Pope is a 68 year old female here for a Medicare wellness visit. Medicare Health Risk Assessment General Health Very good Exercise: Minutes/Day 30 min Exercise: Days/Week 1 day Alcohol: Daily Use Never Alcohol: Drinks/Day Patient does not drink Alcohol: 6 or more drinks Never Feel off balance No Concerns: Teeth/Dentures No Concerns: Sexual function No Troubled by feelings None of the above Frequency: Eating healthy diet More than half the days ADLs requiring help None of the above Safety precautions in home/vehicle Yes Smoke, vape, chews tobacco No Difficulty hearing No Difficulty seeing Yes Current Providers Specialists: I have reviewed specialist-related care of the patient in the medical record. Current care team: Patient Care Team: Jj Nettles MD as PCP - General (Internal Medicine) Medical/Family history review Reviewed and updated problem list, medical/surgical/family/social history, medications, and allergies. Opioid use review Opioid Medications (last 90 days) No data to display Anxiety/Depression screening RAYSA-2 Score: 1 (Lower risk for anxiety) Recommendation: no further intervention at this time Cognitive screening Mini Cog Score: 5 Cognitive screening reviewed and No further action needed (score 3-5). Functional Observation Was the patient's Timed Up & Go test unsteady or >= 12 seconds? No Advance Care Planning Patient was not able to provide a surrogate decision maker or written advance directives Measurements BP 124/62 Pulse 64 Resp 16 Ht 159.5 cm (5' 2.8) Wt 71.8 kg (158 lb 4.6 oz) SpO2 98% BMI 28.22 kg/m Vision Screening: Declines visual acuity screen Assessment/Plan Medicare annual wellness visit, subsequent (Z00.00) - Counseled on healthy diet and regular exercise - Fall avoidance information provided - Personalized prevention plan provided Additional Concerns The following concerns were also discussed with the patient: Diabetes: Home blood sugar readings: fasting average in the low 100's Hypoglycemia: Yes, 1-2 times a week blood sugars drop in the morning between 55-70. Symptoms include shaky and lightheaded. She is compliant with medication(s) and is tolerating med(s) without any side effects. Numbness, tingling or pain in extremities: No Ulcers or sores on feet: No Last Ophthalmology exam: over two years ago. She has trouble getting rides to appointments Patient's last HgA1C : Hemoglobin A1C (%) Date Value 08/26/2023 7.1 02/17/2023 6.9 03/27/2021 7.0 09/11/2020 8.9 Insomnia: worsening despite taking Trazodone 100 mg at bedtime. No trouble falling asleep but wakes up multiple times and has trouble falling back to sleep. History of depression but she denies feeling down, depressed, hopeless, anhedonia. Asthma- Symptoms: wheezing. Nocturnal Symptoms: No Asthma is not limiting daily activities or exercise. Current pulmonary medications: albuterol as needed Frequency of albuterol use is once a day. Triggers include: unsure Recent exacerbations: No HTN-Medication changes:No Taking all medications as prescribed: Yes Side effects: No Home BP's: No Denies: headache, chest pain, palpitations, dyspnea, and peripheral edema. Last 3 Encounter BP Readings: Date: BP: 02/29/2024 124/62 08/30/2023 120/64 02/25/2023 114/68 PHYSICAL EXAM BP 124/62 Pulse 64 Resp 16 Ht 159.5 cm (5' 2.8) Wt 71.8 kg (158 lb 4.6 oz) SpO2 98% BMI 28.22 kg/m GENERAL: well appearing, alert, in no acute distress CARDIOVASCULAR: regular rate and rhythm. No murmur, rubs or gallops. PULMONARY: clear to auscultation, no wheezing, rhonchi, or crackles ASSESSMENT/PLAN: 1. Medicare annual wellness visit, subsequent - ICD9: V70.0, ICD10: Z00.00 (primary diagnosis) See medicare wellness 2. Type 2 diabetes mellitus with stage 3 chronic kidney disease, with long-term current use of insulin (HCC) - ICD9: 250.40, 585.3, V58.67, ICD10: E11.22, N18.30, Z79.4 - Control undetermined, due for labs - Continue current medications - Increase Trulicity to 3 mg weekly - Decrease Tresiba to 55 units at bedtime due to hypoglycemia episodes. Continue with 60 units in the morning. - eGFR: 38 Due for labs - Albuminuria: due for urine ACR - Counseled on avoiding NSAIDs, adequate hydration - Counseled on low sodium diet - DULAGLUTIDE 3 MG/0.5 ML SUBCUTANEOUS PEN INJECTOR - METFORMIN 500 MG TABLET 3. Insomnia, unspecified type - ICD9: 780.52, ICD10: G47.00 Worsening. Increase trazodone to 150 mg at bedtime - TRAZODONE 150 MG TABLET 4. Essential hypertension - ICD9: 401.9, ICD10: I10 - Controlled - Continue current medications - Recommend home blood pressure monitoring, to bring results to next visit - Encouraged sodium restriction, DASH or Mediterranean diet - LISINOPRIL 20 MG-HYDROCHLOROTHIAZIDE 25 MG TABLET 5. Asthmatic bronchitis without complication, unspecified asthma severity, unspecified whether persistent - ICD9: 493.90, ICD10: J45.909 Stable - ALBUTEROL SULFATE HFA 90 MCG/ACTUATION AEROSOL INHALER 6. Depressive disorder - ICD9: 311, ICD10: F32.A Stable - TRAZODONE 150 MG TABLET 7. Encounter for screening examination for other mental health and behavioral disorders - ICD9: V79.8, ICD10: Z13.39 - ANXIETY SCREENING Carly Zabala APRN.MATH AND SCIENCE INSTRUCTOR documented in this encounter [facility] 11-22-2023 Telephone encounter Note Prescription Refill Information The patient has been identified by name and date of : Yes Caregiver verified no other encounters exist for this prescription request: Yes Caregiver confirmed with patient/requestor that no other refills are due, in the near future, with this provider at this time: Yes The last office visit in the department: 08-30-23 Does the patient have a future office visit with this provider/department: Yes Requested Prescriptions Pending Prescriptions Disp Refills atorvastatin (LIPITOR) 40 mg tablet 90 tablet 3 Sig: Take 1 tablet by mouth once daily. empagliflozin (JARDIANCE) 10 mg tablet 90 tablet 1 Sig: Take 1 tablet by mouth once daily. Take 1 tablet once daily in the morning lisinopril-hydroCHLOROthiazide (ZESTORETIC) 20-25 mg per tablet 90 tablet 3 Sig: Take 1 tablet by mouth once daily. metoprolol tartrate, short acting, (LOPRESSOR) 50 mg tablet 180 tablet 3 Sig: Take 1 tablet by mouth two times a day. Radha Ross [facility] November 22, 2023 12:10 PM [facility] 11-22-2023 Miscellaneous Notes Prescription Refill Information The patient has been identified by name and date of : Yes Caregiver verified no other encounters exist for this prescription request: Yes Caregiver confirmed with patient/requestor that no other refills are due, in the near future, with this provider at this time: Yes The last office visit in the department: 08-30-23 Does the patient have a future office visit with this provider/department: Yes Requested Prescriptions Pending Prescriptions Disp Refills atorvastatin (LIPITOR) 40 mg tablet 90 tablet 3 Sig: Take 1 tablet by mouth once daily. empagliflozin (JARDIANCE) 10 mg tablet 90 tablet 1 Sig: Take 1 tablet by mouth once daily. Take 1 tablet once daily in the morning lisinopril-hydroCHLOROthiazide (ZESTORETIC) 20-25 mg per tablet 90 tablet 3 Sig: Take 1 tablet by mouth once daily. metoprolol tartrate, short acting, (LOPRESSOR) 50 mg tablet 180 tablet 3 Sig: Take 1 tablet by mouth two times a day. Radha Ross [facility] November 22, 2023 12:10 PM documented in this encounter [facility] 09-29-2023 Telephone encounter Note Patient has been identified by name and date of : Yes, Patient phones for refill(s): Requested Prescriptions Pending Prescriptions Disp Refills dulaglutide (TRULICITY) 1.5 mg/0.5 mL pen injector 12 Each 3 Sig: Inject 1.5 mg subcutaneously one time a week. Inject once per week. Discard Pen After Lancets 400 Each 3 Sig: Test blood sugar(s) 4 times daily. Dx: Type 2 DM - Uncontrolled E11.65 Insulin: Yes Insulin [place], Disposable, (BD ULTRA-FINE ION PEN NEEDLE) 32 gauge x 5/32 540 Each 3 Sig: USE DIRECTED FOR EACH DOSE 6 TIMES DAILY (FOR DIABETES) Date of last office visit in primary care: 08/30/2023 Date of next office visit in primary care: 02/29/2024 Please advise. Thank you. Lucretia Alejandro. [facility] 09-29-2023 Miscellaneous Notes Patient has been identified by name and date of : Yes, Patient phones for refill(s): Requested Prescriptions Pending Prescriptions Disp Refills dulaglutide (TRULICITY) 1.5 mg/0.5 mL pen injector 12 Each 3 Sig: Inject 1.5 mg subcutaneously one time a week. Inject once per week. Discard Pen After Lancets 400 Each 3 Sig: Test blood sugar(s) 4 times daily. Dx: Type 2 DM - Uncontrolled E11.65 Insulin: Yes Insulin [place], Disposable, (BD ULTRA-FINE ION PEN NEEDLE) 32 gauge x 540 Each 3 Sig: USE DIRECTED FOR EACH DOSE 6 TIMES DAILY (FOR DIABETES) Date of last office visit in primary care: 08/30/2023 Date of next office visit in primary care: 02/29/2024 Please advise. Thank you. Lucretia Alejandro. documented in this encounter [facility] 08-30-2023 Instructions Jj Nettles MD - 08/30/2023 9:52 AM EDT BONE MINERAL DENSITY PATIENT INSTRUCTIONS Bone mineral density testing measures the amount of calcium in certain parts of your bones. This information determines how strong your bones are. The test is used to detect osteoporosis, a disease in which the bone's mineral content and density are low, increasing a person's risk of fractures. The lumbar spine (lower back) and the hip are the skeletal sites usually examined. For the test, remember that: 1. You cannot take this test if you are . 2. Eat a normal diet on the day of the test. 3. Take your medications as you normally would. 4. DO NOT take calcium supplements (such as Tums) for 24 hours before the test. 5. On the day of the test, leave valuables (jewelry or credit cards) at home. 6. The test should be performed prior to oral, rectal or IV contrast studies, or at least 7 days after any of these studies. For the test, you may be asked to wear a hospital gown. You will lie on your back, on a padded table, in a comfortable position. Generally, you can resume your usual activities immediately. documented in this encounter [facility] 08-30-2023 History of Presen t illness Narrative This note was created using Printland. Gian Pope is a 68 year old female. She felt well. She stopped Novolog one month ago due to low blood glucose readings. Her hypertension, CKD, and lipids were controlled. Depression and insomnia were controlled. Review of Systems Constitutional: Negative for fatigue and unexpected weight change. Respiratory: Negative for cough and shortness of breath. Cardiovascular: Negative for chest pain, palpitations and leg swelling. Gastrointestinal: Negative for abdominal pain, diarrhea, nausea and vomiting. Neurological: Negative for dizziness, numbness and headaches. ACTIVE PROBLEM LIST Hypertensive Kidney Disease With Stage 3 Chronic Kidney Disease (Hcc) Mixed Hyperlipidemia Type 2 Diabetes Mellitus With Stage 3b Chronic Kidney Disease, With Long-Term Current Use of Insulin (Hcc) Asthmatic Bronchitis Without Complication Insomnia Depressive Disorder Obesity, Class I, Bmi 30-34.9 Social History Tobacco Use Smoking status: Never Smokeless tobacco: Never Substance Use Topics Alcohol use: No Drug use: No Current Outpatient Medications Medication Sig insulin degludec (TRESIBA FLEXTOUCH U-200) 200 unit/mL (3 mL) injection Inject 60 Units subcutaneously every morning AND 60 Units daily at bedtime. metFORMIN (GLUCOPHAGE) 500 mg tablet TAKE 2 TABLETS TWICE DAILY WITH MEALS empagliflozin (JARDIANCE) 10 mg tablet Take 1 tablet by mouth once daily. Take 1 tablet once daily in the morning traZODone (DESYREL) 100 mg tablet Take 1 tablet by mouth daily at bedtime. amLODIPine (NORVASC) 10 mg tablet Take 1 tablet by mouth once daily. For high blood pressure. alcohol swabs (BD SINGLE USE SWABS REGULAR) Apply 1 application to affected area four times daily. Use with Testing with diabetes 4 times a day, insulin dependent E11.65 albuterol HFA (VENTOLIN HFA) 90 mcg/actuation inhaler INHALE 2 PUFFS EVERY 6 HOURS NEEDED FOR WHEEZING OR SHORTNESS OF BREATH lisinopril-hydroCHLOROthiazide (ZESTORETIC) 20-25 mg per tablet Take 1 tablet by mouth once daily. atorvastatin (LIPITOR) 40 mg tablet Take 1 tablet by mouth once daily. metoprolol tartrate, short acting, (LOPRESSOR) 50 mg tablet Take 1 tablet by mouth twice daily. dulaglutide (TRULICITY) 1.5 mg/0.5 mL pen injector Inject 1.5 mg subcutaneously one time a week. Inject once per week. Discard Pen After Lancets lancets Test blood sugar(s) 4 times daily. Dx: Type 2 DM - Uncontrolled E11.65 Insulin: Yes Insulin [place], Disposable, (BD ULTRA-FINE ION PEN NEEDLE) 32 gauge x 5/32 USE DIRECTED FOR EACH DOSE 6 TIMES DAILY (FOR DIABETES) blood sugar diagnostic (TRUE METRIX GLUCOSE TEST STRIP) test strip Test 4 times per day. Dx: E11.22. Insulin: Yes. Blood-Glucose Meter (TRUE METRIX AIR GLUCOSE METER) monitoring kit Check 4 times a day. Dx: E11.22; N18.3 Blood Glucose Control, Normal (TRUE METRIX LEVEL 2) soln 1 Bottle as directed. 1 Bottle as directed. Test controls every 2 weeks or as needed,E11.65 insulin aspart U-100 (NOVOLOG FLEXPEN U-100 INSULIN) 100 unit/mL (3 mL) Inject 30 Units subcutaneously three times daily before meals AND 30 Units daily at bedtime. (Patient not taking: Reported on 08/30/2023) No current facility-administered medications for this visit. Objective Blood Pressure 120/64 (BP Site: Left Arm, BP Position: Sitting, BP Cuff Size: Large Adult) Pulse 68 Temperature 36.8 C (98.3 F) (Temporal) Respiration 16 Weight 69.4 kg (153 lb) Body Mass Index 26.94 kg/m Physical Exam Constitutional: Appearance: She is not ill-appearing. Cardiovascular: Rate and Rhythm: Normal rate and regular rhythm. Heart sounds: No murmur heard. No gallop. Pulmonary: Effort: No respiratory distress. Breath sounds: No wheezing or rales. Musculoskeletal: Right lower leg: No edema. Left lower leg: No edema. Neurological: Mental Status: She is alert. Feet:Shoes and socks removed, No deformities, ulcers, calluses, normal distal pulses, and sensitive to 10 gm monofilament Glucose meter data or glucose log was reviewed for the past month. Range: 57-264. Average: 90 day 168, 30 day 135. Patient was testing TID. Latest Ref Rng 08/26/2023 WBC 3.70 - 11.00 k/uL 10.78 RBC 3.90 - 5.20 m/uL 4.72 Hemoglobin 11.5 - 15.5 g/dL 13.1 Hematocrit 36.0 - 46.0 % 40.3 MCV 80.0 - 100.0 fL 85.4 MCH 26.0 - 34.0 pg 27.8 MCHC 30.5 - 36.0 g/dL 32.5 RDW-CV 11.5 - 15.0 % 13.6 Platelet Count 150 - 400 k/uL 267 MPV 9.0 - 12.7 fL 10.9 Absolute nRBC <0.01 k/uL <0.01 Glucose 74 - 99 mg/dL 86 BUN 7 - 21 mg/dL 22 (H) Creatinine 0.58 - 0.96 mg/dL 1.49 (H) Sodium 136 - 144 mmol/L 140 Potassium 3.7 - 5.1 mmol/L 4.3 Chloride 97 - 105 mmol/L 101 CO2 22 - 30 mmol/L 28 Anion Gap 9 - 18 mmol/L 11 Calcium 8.5 - 10.2 mg/dL 10.1 eGFR >=60 mL/min/1.73m 38 (L) Cholesterol, Total <200 mg/dL 151 Triglyceride <150 mg/dL 148 HDL Cholesterol >39 mg/dL 44 Non HDL Cholesterol <130 mg/dL 107 Fasting Time hrs 12 VLDL Cholesterol <30 mg/dL 30 (H) TC:HDL Ratio <5.10 3.43 LDL Cholesterol <100 mg/dL 77 LDL:HDL Ratio <2.54 1.75 Hemoglobin A1C 4.3 - 5.6 % 7.1 (H) Estimated Average Glucose mg/dL 157 Legend: (H) High (L) Low Assessment and Plan 1. Type 2 diabetes mellitus with stage 3b chronic kidney disease, with long-term current use of insulin (HCC) - ICD9: 250.40, 585.3, V58.67, ICD10: E11.22, N18.32, Z79.4 (primary diagnosis) - Improving control - Continue current medications - eGFR: 38 Stable - CONSULT TO OPHTHALMOLOGY - COMP METABOLIC PANEL - HGB A1C - ALBUMIN/CREAT RATIO RND UR 2. Hypertensive kidney disease with stage 3b chronic kidney disease (HCC) - ICD9: 403.90, 585.3, ICD10: I12.9, N18.32 - Controlled - Continue current medications - eGFR: 38 Stable 3. Asthmatic bronchitis without complication, unspecified asthma severity, unspecified whether persistent - ICD9: 493.90, ICD10: J45.909 Stable. 4. Depressive disorder - ICD9: 311, ICD10: F32.A - Controlled. 5. Insomnia, unspecified type - ICD9: 780.52, ICD10: G47.00 - Controlled. 6. Encounter for screening for osteoporosis - ICD9: V82.81, ICD10: Z13.820 - DXA-AXIAL SKELETON - BD DXA TRABECULAR BONE SCORE (TBS) She no longer wanted mammograms, or colon cancer screenings. Most vaccines declined. RSV vaccine information given. Jj Nettles MD documented in this encounter [facility] 02-25-2023 Instructions Jj Nettles MD - 02/25/2023 10:53 AM EDT Advance Directive Forms Advanced Directives Forms (Micronesian) FORMS: [email or web address] [email or web address] INFORMATIONAL BROCHURE: [email or web address] [email or web address] [email or web address]?la=[email or web address] Advance Directives (non-Micronesian) FORMS: [email or web address] [email or web address] Please bring completed forms to your next appointment or email them to . Patient Resources How to Get Started Talking with Loved Ones about your Wishes at the End of Life [email or web address]-[email or web address] [email or web address]-[email or web address] How to Navigate Conversations with your Care Team around your Preferences [email or web address] welcome NON FASTING BLOOD WORK IN 1 MONTH. FASTING BLOOD WORK IN 6 MONTHS. Recombinant shingles vaccine (Shingrix) is recommended; 2 doses 2-6 months apart. Please read information, check with your insurance, and schedule vaccination at your local pharmacy. A prescription is not required. If you are certain you have coverage to receive this vaccine in the office, we can schedule this for you. documented in this encounter [facility] 02-25-2023 History of Presen t illness Narrative This note was created using Printland. Gian Pope is a 67 year old female. She was doing well, and had no concerns. Her conditions were stable, other than her chronic kidney disease. We reviewed her lab results. Review of Systems Constitutional: Negative for unexpected weight change. Respiratory: Negative for shortness of breath and wheezing. Cardiovascular: Negative for chest pain, palpitations and leg swelling. Gastrointestinal: Negative for diarrhea, nausea and vomiting. Genitourinary: Negative for difficulty urinating and dysuria. Neurological: Negative for dizziness, light-headedness and headaches. ACTIVE PROBLEM LIST Hypertensive Kidney Disease With Stage 3 Chronic Kidney Disease (Hcc) Mixed Hyperlipidemia Type 2 Diabetes Mellitus With Stage 3b Chronic Kidney Disease, With Long-Term Current Use of Insulin (Hcc) Asthmatic Bronchitis Without Complication Insomnia Depressive Disorder Obesity, Class I, Bmi 30-34.9 Social History Tobacco Use Smoking status: Never Smokeless tobacco: Never Substance Use Topics Alcohol use: No Drug use: No Current Outpatient Medications Medication Sig empagliflozin (JARDIANCE) 10 mg tablet Take 1 tablet by mouth once daily. Take 1 tablet once daily in the morning atorvastatin (LIPITOR) 40 mg tablet Take 1 tablet by mouth once daily. metoprolol tartrate, short acting, (LOPRESSOR) 50 mg tablet Take 1 tablet by mouth twice daily. dulaglutide (TRULICITY) 1.5 mg/0.5 mL pen injector Inject 1.5 mg subcutaneously one time a week. Inject once per week. Discard Pen After lisinopril-hydroCHLOROthiazide (ZESTORETIC) 20-25 mg per tablet Take 2 tablets by mouth once daily. Lancets lancets Test blood sugar(s) 4 times daily. Dx: Type 2 DM - Uncontrolled E11.65 Insulin: Yes Insulin [place], Disposable, (BD ULTRA-FINE ION PEN NEEDLE) 32 gauge x 5/32 USE DIRECTED FOR EACH DOSE 6 TIMES DAILY (FOR DIABETES) blood sugar diagnostic (TRUE METRIX GLUCOSE TEST STRIP) test strip Test 4 times per day. Dx: E11.. Insulin: Yes. insulin aspart U-100 (NOVOLOG FLEXPEN U-100 INSULIN) 100 unit/mL (3 mL) Inject 30 Units subcutaneously three times daily before meals AND 30 Units daily at bedtime. alcohol swabs (BD SINGLE USE SWABS REGULAR) Apply 1 application to affected area four times daily. Use with Testing with diabetes 4 times a day, insulin dependent . insulin detemir U-100 (LEVEMIR FLEXTOUCH U-100 INSULIN) 100 unit/mL (3 mL) injection pen Inject 60 Units subcutaneously every morning AND 60 Units daily at bedtime. amLODIPine (NORVASC) 10 mg tablet Take 1 tablet by mouth once daily. For high blood pressure. traZODone (DESYREL) 100 mg tablet Take 1 tablet by mouth daily at bedtime. albuterol HFA (VENTOLIN HFA) 90 mcg/actuation inhaler INHALE 2 PUFFS EVERY 6 HOURS NEEDED FOR WHEEZING OR SHORTNESS OF BREATH metFORMIN (GLUCOPHAGE) 500 mg tablet TAKE 2 TABLETS TWICE DAILY WITH MEALS Blood-Glucose Meter (TRUE METRIX AIR GLUCOSE METER) monitoring kit Check 4 times a day. Dx: E11.22; N18.3 Blood Glucose Control, Normal (TRUE METRIX LEVEL 2) soln 1 Bottle as directed. 1 Bottle as directed. Test controls every 2 weeks or as needed,E11.65 No current facility-administered medications for this visit. Objective BP 114/68 Pulse 68 Resp 14 Wt 70.3 kg (155 lb) SpO2 96% BMI 27.29 kg/m Physical Exam Constitutional: General: She is not in acute distress. Cardiovascular: Rate and Rhythm: Normal rate and regular rhythm. Heart sounds: No murmur heard. No gallop. Pulmonary: Effort: Pulmonary effort is normal. Breath sounds: Normal breath sounds. Musculoskeletal: Right lower leg: No edema. Left lower leg: No edema. Neurological: Mental Status: She is alert. Gait: Gait normal. Psychiatric: Mood and Affect: Mood normal. Component Latest Ref Rng & Units 02/17/2023 Protein, Total 6.3 - 8.0 g/dL 8.0 Albumin 3.9 - 4.9 g/dL 4.4 Calcium 8.5 - 10.2 mg/dL 10.1 Bilirubin, Total 0.2 - 1.3 mg/dL 0.4 Alkaline Phosphatase 34 - 123 U/L 105 AST 13 - 35 U/L 20 ALT 7 - 38 U/L 16 Glucose 74 - 99 mg/dL 130 (H) BUN 7 - 21 mg/dL 32 (H) Creatinine 0.58 - 0.96 mg/dL 1.87 (H) Sodium 136 - 144 mmol/L 137 Potassium 3.7 - 5.1 mmol/L 4.5 Chloride 97 - 105 mmol/L 99 CO2 22 - 30 mmol/L 27 Anion Gap 9 - 18 mmol/L 11 eGFR >=60 mL/min/1.73m 29 (L) Creatinine, Ur Random (UCRR) 20.0 - 300.0 mg/dL 75.9 Albumin, Urine Random mg/L <12.0 Albumin/Creat Ratio <30 mg/g <16 Hemoglobin A1C 4.3 - 5.6 % 6.9 (H) Estimated Average Glucose mg/dL 151 Assessment and Plan 1. Medicare annual wellness visit, subsequent - ICD9: V70.0, ICD10: Z00.00 (primary diagnosis) - DEPRESSION SCREENING/ASSESSMENT - ADVANCE CARE PLAN DISCUSSION 2. Asthmatic bronchitis without complication, unspecified asthma severity, unspecified whether persistent - ICD9: 493.90, ICD10: J45.909 - Mild intermittent asthma stable - Continue current medications - Avoidance of triggers recommended - ALBUTEROL SULFATE HFA 90 MCG/ACTUATION AEROSOL INHALER - SPIROMETRY - BASELINE AND POST DILATOR 3. Encounter for immunization - ICD9: V03.89, ICD10: Z23 - INFLUENZA VACCINE, PRSV FREE, AGE 65+ YR, HIGH DOSE, QUADRIVALENT (FLUZONE HIGH-DOSE) 4. Essential hypertension - ICD9: 401.9, ICD10: I10 - Controlled - Continue current medications - LISINOPRIL 20 MG-HYDROCHLOROTHIAZIDE 25 MG TABLET. 5. Type 2 diabetes mellitus with stage 3b chronic kidney disease, with long-term current use of insulin (HCC) - ICD9: 250.40, 585.3, V58.67, ICD10: E11.22, N18.32, Z79.4 - Controlled - Continue current medications - eGFR: 29 Worsening - Counseled on avoiding NSAIDs, adequate hydration - BASIC METABOLIC PNL - CONSULT TO OPHTHALMOLOGY - BASIC METABOLIC PNL - HGB A1C - LIPID PANEL BASIC 6. Hypertensive kidney disease with stage 3b chronic kidney disease (HCC) - ICD9: 403.90, 585.3, ICD10: I12.9, N18.32 - Worsening control - Reduce LISINOPRIL HCTZ to one tablet daily. - Kidney function may improve with slightly higher blood pressures. - BASIC METABOLIC PNL - CBC Jj Nettles MD MEDICARE WELLNESS VISIT Diego Pope is a 67 year old female here for a Medicare wellness visit. Health Risk Assessment In general, health is: Good Concerns with balance:Not at all Concerns with teeth or dentures:Not at all Concerns with sexual function:Not at all [place] anxious, stressed, angry, irritable, lonely, isolated, or had thoughts of hurting themself: Several days Has little interest or pleasure in doing things: Not at all Bothered by feeling down, depressed, or hopeless: Not at all Needs help with grocery shopping, cooking, housework, bathing, grooming, dressing, eating, sitting or standing, walking, using the toilet, handling finances, taking medications, using the telephone, or driving: Yes Following safety precautions in the home environment and vehicle: removed throw rugs from floors, installed grab bars in the bathroom, handrails in stairwells, having adequate lighting, wearing seatbelt at all times?: No Smokes cigarettes, vapes, or chew tobacco: No Eats healthy foods including fruits, vegetables, whole grains, and fiber-rich foods: Nearly every day Number of days per week engages in exercise: 0 days Average alcohol consumption: Never Current Providers Specialists: I have reviewed specialist-related care of the patient in the medical record. Current care team: Patient Care Team: Jj Nettles MD as PCP - General (Internal Medicine) Outside specialists seen: None. Medical/Family history review Reviewed and updated problem list, medical/surgical/family/social history, medications, and allergies. Opioid use review Patient is not currently using opioids. Depression screening Depression Screening PHQ-2 Score PHQ-9 Score RAYSA-2 Total Score 02/25/2023 1 - - Depression screening tool completed and reviewed. Based on score and interview, patient is not at risk for depression. Screening tool discussed with patient, and I recommended no further intervention at this time. Cognitive screening Mini Cog Score: Score: 5 Functional Observation Was the patient's timed Up & Go test unsteady or ? 12 seconds? No Advance Care Planning End of Life planning discussed, including patient's advanced directive wishes: Yes Measurements BP 114/68 Pulse 68 Resp 14 Wt 155 lb (70.3kg) SpO2 96% Visual acuity (required for Welcome to Medicare): follows with optometry/ophthalmology Hearing Evaluation: within normal limits Assessment/Plan Medicare annual wellness visit, subsequent (Z00.00) - Counseled on healthy diet and regular exercise - Fall avoidance information provided - Shingrix recommended. - Flu vaccine today. documented in this encounter [facility] 02-14-2023 History of Presen t illness Narrative POPULATION HEALTH NAVIGATION OUTREACH Action/FYI [employer] Care Gaps Outreach LAST OUTREACH: CHIRAG ALFARO Sent [employer] message Last OFFICE VISIT: 08/18/2022 RTC INDICATED in 6 mo for F/U visit around 02/18/2023 Next OFFICE VISIT: 02/25/2023 6 mo F/U visit. Next 5 Appointments Date and Time Provider Department Dept Phone 02/17/2023 9:00 AM LAB [facility] [place] [phone] 02/25/2023 10:00 AM Jj Nettles IN[facility] [phone] ANNUAL WELLNESS EXAM Dilated Retinal Exam Never done HbA1C due on 11/12/2022- scheduled for 02/17/2023 Urine Albumin:Creatinine Ratio due on 01/22/2023 - scheduled for 02/17/2023 Influenza Vaccine(1) due on 01/28/2023 Encounter Closed. Patient Identified by Name and : NO Outreach Outcome/Action Unable to reach patient: Left message ImageBriefhart message sent Did you use a PCP flex slot to schedule this appointment? N/A Reason for Outreach Care Gap or Scheduling/Wellness visits Payer: Payor: [employer] MEDICARE / Plan: [employer] / Product Type: HMO / Care Gap Reviewed:: Annual Wellness visit Diabetic Eye Exam Flu Vaccine Reminder: Reminder note to check Health Maintenance for items below Health Maintenance items due: Dilated Retinal Exam Never done Spirometry Never done Shingrix Vaccine(1 of 2) Never done Hepatitis B Vaccine(1 of 3 - Risk 3-dose series) Never done Advance Directive Discussion Never done HbA1C due on 11/12/2022 Urine Albumin:Creatinine Ratio due on 01/22/2023 Influenza Vaccine(1) due on 01/28/2023 Navigation Signature: Calista Leon MA February 14, 2023 3:15 PM documented in this encounter [facility] 02-14-2023 Miscellaneous Notes Patient notified fasting lab order & urine prior to next appt, verbalized understanding. Myah Gonzalez LPN Patient's NAA 08/18/22 and scheduled to see PCP on 02/25/23. Please advise if labs needed. Juliann Richardson MA Patient called in requesting her lab work before her upcoming appt. Please review and advise patient once placed. Lynda Keith February 14, 2023 11:14 AM documented in this encounter [facility] 01-24-2023 Miscellaneous Notes Patient has been identified by name and date of : Yes, Patient phones for refill(s): Requested Prescriptions Pending Prescriptions Disp Refills empagliflozin (JARDIANCE) 10 mg tablet 90 tablet 1 Sig: Take 1 tablet by mouth once daily. Take 1 tablet once daily in the morning Date of last office visit in primary care: 08/18/2022 6 month follow-up: 02/25/2023 Last 2 Encounter Wt Readings: Date: Wt: 08/18/2022 73 kg (161 lb) 04/03/2021 74.8 kg (165 lb) Previous labs/tests for medication: Diabetes: Hemoglobin A1C (%) Date Value 08/12/2022 8.2 01/22/2022 7.5 03/27/2021 7.0 09/11/2020 8.9 Please advise. Thank you. Myah Gonzalez LPN Patient has been identified by name and date of : Yes Last office visit in this department: Visit date not found RX INSTRUCTIONS: Patient aware RX will be sent to pharmacy. No need to notify patient. Patient phones requesting refills as follows: Requested Prescriptions Pending Prescriptions Disp Refills empagliflozin (JARDIANCE) 10 mg tablet 90 tablet 1 Sig: Take 1 tablet by mouth once daily. Take 1 tablet once daily in the morning Please review and advise. Gina Wright documented in this encounter [facility] 12-22-2022 Miscellaneous Notes Patient has been identified by name and date of : Yes, Patient phones for refill(s): Requested Prescriptions Pending Prescriptions Disp Refills atorvastatin (LIPITOR) 40 mg tablet 90 tablet 3 Sig: Take 1 tablet by mouth once daily. metoprolol tartrate, short acting, (LOPRESSOR) 50 mg tablet 180 tablet 3 Sig: Take 1 tablet by mouth twice daily. dulaglutide (TRULICITY) 1.5 mg/0.5 mL pen injector 12 Each 3 Sig: Inject 1.5 mg subcutaneously one time a week. Inject once per week. Discard Pen After lisinopril-hydroCHLOROthiazide (ZESTORETIC) 20-25 mg per tablet 180 tablet 3 Sig: Take 2 tablets by mouth once daily. Lancets lancets 400 Each 3 Sig: Test blood sugar(s) 4 times daily. Dx: Type 2 DM - Uncontrolled E11.65 Insulin: Yes Insulin [place], Disposable, (BD ULTRA-FINE ION PEN NEEDLE) 32 gauge x 5/32 540 Each 3 Sig: USE DIRECTED FOR EACH DOSE 6 TIMES DAILY (FOR DIABETES) Date of last office visit in primary care: 08/18/2022 6 month follow-up: 02/25/2023 Last 2 Encounter Wt Readings: Date: Wt: 08/18/2022 73 kg (161 lb) 04/03/2021 74.8 kg (165 lb) Previous labs/tests for medication: Diabetes: Hemoglobin A1C (%) Date Value 08/12/2022 8.2 01/22/2022 7.5 03/27/2021 7.0 09/11/2020 8.9 Cholesterol: HDL Cholesterol (mg/dL) Date Value 08/12/2022 30 09/11/2020 35 LDL Cholesterol (mg/dL) Date Value 08/12/2022 76 09/11/2020 Unable to calculate due to increased Triglycerides. See LDL-Chol, Direct. ALT (U/L) Date Value 01/22/2022 16 09/11/2020 33 Non HDL Cholesterol (mg/dL) Date Value 08/12/2022 145 09/11/2020 124 Blood Pressure: BUN (mg/dL) Date Value 08/12/2022 20 09/11/2020 23 Sodium (mmol/L) Date Value 08/12/2022 138 09/11/2020 141 Last 1 Encounter BP Readings: Date: BP: 08/18/2022 116/66 Please advise. Thank you. Myah Gonzalez LPN Patient has been identified by name and date of : Yes Requested Prescriptions Pending Prescriptions Disp Refills atorvastatin (LIPITOR) 40 mg tablet 90 tablet 3 Sig: Take 1 tablet by mouth once daily. metoprolol tartrate, short acting, (LOPRESSOR) 50 mg tablet 180 tablet 3 Sig: Take 1 tablet by mouth twice daily. dulaglutide (TRULICITY) 1.5 mg/0.5 mL pen injector 12 Each 3 Sig: Inject 1.5 mg subcutaneously one time a week. Inject once per week. Discard Pen After lisinopril-hydroCHLOROthiazide (ZESTORETIC) 20-25 mg per tablet 180 tablet 3 Sig: Take 2 tablets by mouth once daily. Lancets lancets 400 Each 3 Sig: Test blood sugar(s) 4 times daily. Dx: Type 2 DM - Uncontrolled E11.65 Insulin: Yes Insulin [place], Disposable, (BD ULTRA-FINE ION PEN NEEDLE) 32 gauge x 5/32 540 Each 3 Sig: USE DIRECTED FOR EACH DOSE 6 TIMES DAILY (FOR DIABETES) RX INSTRUCTIONS: Patient aware RX escripted to mail away pharmacy. No need to notify patient. Pastora Paling Pss documented in this encounter [facility] 08-18-2022 History of Presen t illness Narrative This note was created using [employer]. Gian Pope is a 67 year old female. She was recovering from a cold, otherwise she had no new concerns. Diabetes was not well controlled taking all medications as listed. Review of Systems Constitutional: Negative for fever. HENT: Negative for sore throat. Eyes: Negative. Respiratory: Negative for cough, shortness of breath and wheezing. Cardiovascular: Negative for chest pain. Gastrointestinal: Negative. Genitourinary: Negative for difficulty urinating and dysuria. ACTIVE PROBLEM LIST Hypertensive Kidney Disease With Stage 3 Chronic Kidney Disease (Hcc) Mixed Hyperlipidemia Type 2 Diabetes Mellitus With Stage 3b Chronic Kidney Disease, With Long-Term Current Use of Insulin (Hcc) Asthmatic Bronchitis Without Complication Insomnia Depressive Disorder Obesity, Class I, Bmi 30-34.9 Social History Tobacco Use Smoking status: Never Smokeless tobacco: Never Substance Use Topics Alcohol use: No Drug use: No Current Outpatient Medications Medication Sig amLODIPine (NORVASC) 10 mg tablet Take 1 tablet by mouth once daily. For high blood pressure. traZODone (DESYREL) 100 mg tablet Take 1 tablet by mouth daily at bedtime. albuterol HFA (VENTOLIN HFA) 90 mcg/actuation inhaler INHALE 2 PUFFS EVERY 6 HOURS NEEDED FOR WHEEZING OR SHORTNESS OF BREATH blood sugar diagnostic (TRUE METRIX GLUCOSE TEST STRIP) test strip Test 4 times per day. Dx: E11.22. Insulin: Yes. dulaglutide (TRULICITY) 1.5 mg/0.5 mL pen injector Inject 1.5 mg subcutaneously one time a week. Inject once per week. Discard Pen After insulin detemir U-100 (LEVEMIR FLEXTOUCH U-100 INSULIN) 100 unit/mL (3 mL) injection pen Inject 50 Units subcutaneously every morning AND 60 Units daily at bedtime. atorvastatin (LIPITOR) 40 mg tablet Take 1 tablet by mouth once daily. Insulin [place], Disposable, (BD ULTRA-FINE ION PEN NEEDLE) 32 gauge x 5/32 USE DIRECTED FOR EACH DOSE 6 TIMES DAILY (FOR DIABETES) lisinopril-hydroCHLOROthiazide (PRINZIDE, ZESTORETIC) 20-25 mg per tablet Take 2 tablets by mouth once daily. metoprolol tartrate, short acting, (LOPRESSOR) 50 mg tablet Take 1 tablet by mouth twice daily. Lancets lancets Test blood sugar(s) 4 times daily. Dx: Type 2 DM - Uncontrolled E11.65 Insulin: Yes insulin aspart U-100 (NOVOLOG FLEXPEN U-100 INSULIN) 100 unit/mL (3 mL) Inject 30 Units subcutaneously three times daily before meals AND 30 Units daily at bedtime. metFORMIN (GLUCOPHAGE) 500 mg tablet TAKE 2 TABLETS TWICE DAILY WITH MEALS alcohol swabs (BD SINGLE USE SWABS REGULAR) Apply 1 application to affected area four times daily. Use with Testing with diabetes 4 times a day, insulin dependent E11.65 Blood-Glucose Meter (TRUE METRIX AIR GLUCOSE METER) monitoring kit Check 4 times a day. Dx: E11.22; N18.3 Blood Glucose Control, Normal (TRUE METRIX LEVEL 2) soln 1 Bottle as directed. 1 Bottle as directed. Test controls every 2 weeks or as needed,E11.65 No current facility-administered medications for this visit. Objective BP 116/66 (BP Site: Right Arm, BP Position: Sitting, BP Cuff Size: Large Adult) Pulse 72 Resp 16 Wt 73 kg (161 lb) BMI 28.35 kg/m Physical Exam Constitutional: General: She is not in acute distress. Cardiovascular: Rate and Rhythm: Normal rate and regular rhythm. Heart sounds: No murmur heard. No gallop. Pulmonary: Effort: No respiratory distress. Breath sounds: No wheezing or rales. Musculoskeletal: Right lower leg: No edema. Left lower leg: No edema. Neurological: Mental Status: She is alert. Feet:Shoes and socks removed, No deformities, ulcers, calluses, normal distal pulses, and sensitive to 10 gm monofilament Component Latest Ref Rng & Units 08/12/2022 WBC 3.70 - 11.00 k/uL 8.50 RBC 3.90 - 5.20 m/uL 4.51 Hemoglobin 11.5 - 15.5 g/dL 12.5 Hematocrit 36.0 - 46.0 % 37.5 MCV 80.0 - 100.0 fL 83.1 MCH 26.0 - 34.0 pg 27.7 MCHC 30.5 - 36.0 g/dL 33.3 RDW-CV 11.5 - 15.0 % 13.3 Platelet Count 150 - 400 k/uL 256 MPV 9.0 - 12.7 fL 10.7 Absolute nRBC <0.01 k/uL <0.01 Glucose 74 - 99 mg/dL 168 (H) BUN 7 - 21 mg/dL 20 Creatinine 0.58 - 0.96 mg/dL 1.49 (H) Sodium 136 - 144 mmol/L 138 Potassium 3.7 - 5.1 mmol/L 4.0 Chloride 97 - 105 mmol/L 100 CO2 22 - 30 mmol/L 28 Anion Gap 9 - 18 mmol/L 10 Calcium 8.5 - 10.2 mg/dL 10.0 eGFR >=60 mL/min/1.73m 38 (L) Cholesterol, Total <200 mg/dL 175 Triglyceride <150 mg/dL 345 (H) HDL Cholesterol >39 mg/dL 30 (L) Non HDL Cholesterol <130 mg/dL 145 (H) Fasting Time hrs 9 VLDL Cholesterol <30 mg/dL 69 (H) TC:HDL Ratio <5.10 5.83 (H) LDL Cholesterol <100 mg/dL 76 LDL:HDL Ratio <2.54 2.53 Hemoglobin A1C 4.3 - 5.6 % 8.2 (H) Estimated Average Glucose mg/dL 189 Glucose meter data or log was reviewed for the past month. Range: 96-399. Average: 217. Patient was testing TID. Higher frequency of testing needed: yes. Reason: medication adjustment, uncontrolled DM, labile blood sugars. Assessment and Plan 1. Type 2 diabetes mellitus with stage 3 chronic kidney disease, with long-term current use of insulin (HCC) - ICD9: 250.40, 585.3, V58.67, ICD10: E11.22, N18.30, Z79.4 (primary diagnosis) - Worsening control - eGFR: Stable - INSULIN ASPART (U-100) 100 UNIT/ML (3 ML) SUBCUTANEOUS PEN. Refilled. - TRUE METRIX GLUCOSE TEST STRIP. She declined a CGM. - ALCOHOL SWABS - LEVEMIR FLEXTOUCH U-100 INSULIN 100 UNIT/ML (3 ML) SUBCUTANEOUS PEN. Dose increased to 60 units SC BID. - EMPAGLIFLOZIN 10 MG TABLET. Take one(1) tablet daily. New medication. This was tried previously. Discussed medication dosage, usage, goals of therapy, and side effects. - BASIC METABOLIC PNL - HGB A1C - CONSULT TO OPHTHALMOLOGY 2. Hypertensive kidney disease with stage 3b chronic kidney disease (HCC) - ICD9: 403.90, 585.3, ICD10: I12.9, N18.32 Stable. - Continue current medication(s) - Reviewed risks of HTN and principles of treatment - Goal of BP <130/80 - eGFR: Stable 3. Mixed hyperlipidemia - ICD9: 272.2, ICD10: E78.2 - good control - Continue current medication. 4. Depressive disorder - ICD9: 311, ICD10: F32.A Controlled. Jj Nettles MD documented in this encounter [facility] 08-17-2022 Miscellaneous Notes Patient has been identified by name and date of : No Patient phones for refill(s): Requested Prescriptions Pending Prescriptions Disp Refills amLODIPine (NORVASC) 10 mg tablet 90 tablet 3 Sig: Take 1 tablet by mouth once daily. For high blood pressure. traZODone (DESYREL) 100 mg tablet 90 tablet 3 Sig: Take 1 tablet by mouth daily at bedtime. albuterol HFA (VENTOLIN HFA) 90 mcg/actuation inhaler 36 g 3 Sig: INHALE 2 PUFFS EVERY 6 HOURS NEEDED FOR WHEEZING OR SHORTNESS OF BREATH Date of last office visit in primary care: 01/29/22 Last 2 Encounter Wt Readings: Date: Wt: 04/03/2021 74.8 kg (165 lb) 10/13/2020 78.9 kg (174 lb) Previous labs/tests for medication: Blood Pressure: BUN (mg/dL) Date Value 08/12/2022 20 09/11/2020 23 Sodium (mmol/L) Date Value 08/12/2022 138 09/11/2020 141 Last 1 Encounter BP Readings: Date: BP: 04/03/2021 128/80 Please advise. Thank you. Jenni Jara LPN Patient has been identified by name and date of : Yes Requested Prescriptions Pending Prescriptions Disp Refills amLODIPine (NORVASC) 10 mg tablet 90 tablet 3 Sig: Take 1 tablet by mouth once daily. For high blood pressure. traZODone (DESYREL) 100 mg tablet 90 tablet 3 Sig: Take 1 tablet by mouth daily at bedtime. albuterol HFA (VENTOLIN HFA) 90 mcg/actuation inhaler 36 g 3 Sig: INHALE 2 PUFFS EVERY 6 HOURS NEEDED FOR WHEEZING OR SHORTNESS OF BREATH RX INSTRUCTIONS: Patient aware RX will be sent to pharmacy. No need to notify patient. [facility] Electronically signed by [employer] [facility] [place]17/2022 9:50 AM EDT documented in this encounter [facility] 06-02-2022 Miscellaneous Notes Patient using mail-order pharmacy. Patient has been identified by name and date of : Yes Patient phones for refill(s): Requested Prescriptions Pending Prescriptions Disp Refills blood sugar diagnostic (TRUE METRIX GLUCOSE TEST STRIP) test strip 400 Strip 1 Sig: Test 4 times per day. Dx: E11.22. Insulin: Yes. Date of last office visit in primary care: 01/29/2022 Appt: 07/30/2022 Last 2 Encounter Wt Readings: Date: Wt: 04/03/2021 74.8 kg (165 lb) 10/13/2020 78.9 kg (174 lb) Previous labs/tests for medication: Diabetes: Hemoglobin A1C (%) Date Value 01/22/2022 7.5 03/27/2021 7.0 09/11/2020 8.9 Please advise. Thank you. Myah Gonzalez LPN Patient has been identified by name and date of : Yes Last office visit in this department: 01/29/2022 RX INSTRUCTIONS: Patient aware RX escripted to mail away pharmacy. No need to notify patient. Patient requesting 90 days Patient phones requesting refills as follows: Requested Prescriptions Pending Prescriptions Disp Refills blood sugar diagnostic (TRUE METRIX GLUCOSE TEST STRIP) test strip 400 Strip 1 Sig: Test 4 times per day. Dx: E11.22. Insulin: Yes. Please review and advise. Sania Wright documented in this encounter [facility] 04-23-2022 Miscellaneous Notes Summary: Refill Patient has been identified by name and date of : Yes Last office visit in this department: Visit date not found RX INSTRUCTIONS: Patient aware RX will be sent to pharmacy. No need to notify patient. Patient phones requesting refills as follows: Requested Prescriptions Pending Prescriptions Disp Refills blood sugar diagnostic (TRUE METRIX GLUCOSE TEST STRIP) test strip 400 Strip 1 Sig: Test 4 times per day. Dx: E11.22. Insulin: Yes. Please review and advise. Aracelis Edwards documented in this encounter [facility] 04-04-2022 Evaluation note Diagnosis Type 2 diabetes mellitus with stage 3 chronic kidney disease, with long-term current use of insulin, unspecified whether stage 3a or 3b CKD (HCC)- Primary documented in this encounter [facility]09-02-2022 History of Present illness Narrative* Jj Nettles MD - 01/29/2022 11:48 AM EDT This note was created using [employer]. Subjective Diego Pope is a 66 year old female. Her diabetes mellitus was stable, with widely fluctuating blood sugars. Her hypertension and lipids were controlled. Review of Systems Constitutional: Negative. Respiratory: Negative. Cardiovascular: Negative. Gastrointestinal: Negative. Genitourinary: Negative. Psychiatric/Behavioral: Negative. ACTIVE PROBLEM LIST Hypertensive Kidney Disease With Stage 3 Chronic Kidney Disease (Hcc) Mixed Hyperlipidemia Ckd (Chronic Kidney Disease) Stage 3, Gfr 30-59 Ml/Min (Hcc) Type 2 Diabetes Mellitus With Stage 3 Chronic Kidney Disease, With Long-Term Current Use of Insulin([facility]) Asthmatic Bronchitis Without Complication Insomnia Depressive Disorder Type 2 Diabetes Mellitus With Hyperglycemia, With Long-Term Current Use of Insulin ([facility]) Obesity, Class I, Bmi 30-34.9 Social History Tobacco Use Smoking status: Never Smokeless tobacco: Never Substance Use Topics Alcohol use: No Drug use: No Current Outpatient Medications Medication Sig dulaglutide (TRULICITY) 1.5 mg/0.5 mL pen injector Inject 1.5 mg subcutaneously one time a week. Inject once per week. Discard Pen After insulin detemir U-100 (LEVEMIR FLEXTOUCH U-100 INSULIN) 100 unit/mL (3 mL) injection pen Inject 50 Units subcutaneously every morning AND 60 Units daily at bedtime. atorvastatin (LIPITOR) 40 mg tablet Take 1 tablet by mouth once daily. Insulin [place], Disposable, (BD ULTRA-FINE ION PEN NEEDLE) 32 gauge x 5/32 USE DIRECTED FOR EACH DOSE 6 TIMES DAILY (FOR DIABETES) lisinopril-hydroCHLOROthiazide (PRINZIDE, ZESTORETIC) 20-25 mg per tablet Take 2 tablets by mouth once daily. metoprolol tartrate, short acting, (LOPRESSOR) 50 mg tablet Take 1 tablet by mouth twice daily. Lancets lancets Test blood sugar(s) 4 times daily. Dx: Type 2 DM - Uncontrolled E11.65 Insulin: Yes amLODIPine (NORVASC) 10 mg tablet Take 1 tablet by mouth once daily. For high blood pressure. traZODone (DESYREL) 100 mg tablet Take 1 tablet by mouth daily at bedtime. albuterol HFA (VENTOLIN HFA) 90 mcg/actuation inhaler INHALE 2 PUFFS EVERY 6 HOURS NEEDED FOR WHEEZING OR SHORTNESS OF BREATH insulin aspart U-100 (NOVOLOG FLEXPEN U-100 INSULIN) 100 unit/mL (3 mL) Inject 30 Units subcutaneously three times daily before meals AND 30 Units daily at bedtime. metFORMIN (GLUCOPHAGE) 500 mg tablet TAKE 2 TABLETS TWICE DAILY WITH MEALS blood sugar diagnostic (TRUE METRIX GLUCOSE TEST STRIP) test strip Test 4 times per day. Dx: E11.22. Insulin: Yes. alcohol swabs (BD SINGLE USE SWABS REGULAR) Apply 1 application to affected area four times daily. Use with Testing with diabetes 4 times a day, insulin dependent E11.65 Blood-Glucose Meter (TRUE METRIX AIR GLUCOSE METER) monitoring kit Check 4 times a day. Dx: E11.22;N18.3 Blood Glucose Control, Normal (TRUE METRIX LEVEL 2) soln 1 Bottle as directed. 1 Bottle as directed. Test controls every 2 weeks or as needed,E11.65 No current facility-administered medications for this visit. Objective BP (P) 110/64 (BP Site: Left Arm, BP Position: Sitting, BP Cuff Size: Regular Adult) Pulse (P) 78 Temp (P) 36.1 C (97 F) (Temporal) Resp (P) 16 Wt (P) 70.8 kg (156 lb) BMI (P) 27.47 kg/m Physical Exam Constitutional: Appearance: She is not ill-appearing. Eyes: Conjunctiva/sclera: Conjunctivae normal. Cardiovascular: Rate and Rhythm: Normal rate and regular rhythm. Pulmonary: Breath sounds: Normal breath sounds. Musculoskeletal: Right lower leg: No edema. Left lower leg: No edema. Neurological: Mental Status: She is alert. Feet:Shoes and socks removed, No deformities, ulcers, calluses, normal distal pulses, and sensitiveto 10 gm monofilament Component Latest Ref Rng & Units 01/22/2022 Protein, Total 6.3 - 8.0 g/dL 7.9 Albumin 3.9 - 4.9 g/dL 4.5 Calcium 8.5 - 10.2 mg/dL 10.1 Bilirubin, Total 0.2 - 1.3 mg/dL 0.4 Alkaline Phosphatase 34 - 123 U/L 106 AST 13 - 35 U/L 16 ALT 7 - 38 U/L 16 Glucose 74 - 99 mg/dL 128 (H) BUN 7 - 21 mg/dL 25 (H) Creatinine 0.58 - 0.96 mg/dL 1.39 (H) Sodium 136 - 144 mmol/L 139 Potassium 3.7 - 5.1 mmol/L 3.9 Chloride 97 - 105 mmol/L 100 CO2 22 - 30 mmol/L 26 Anion Gap 9 - 18 mmol/L 13 eGFR >=60 mL/min/1.73m 42 (L) Cholesterol, Total <200 mg/dL 160 Triglyceride <150 mg/dL 256 (H) HDL Cholesterol >39 mg/dL 35 (L) Non HDL Cholesterol <130 mg/dL 125 Fasting Time hrs 12 VLDL Cholesterol <30 mg/dL 51 (H) TC:HDL Ratio <5.10 4.57 LDL Cholesterol <100 mg/dL 74 LDL:HDL Ratio <2.54 2.11 Creatinine, Ur Random (UCRR) 20.0 - 300.0 mg/dL 87.8 Albumin, Urine Random mg/L 15.8 Albumin/Creat Ratio <30 mg/g 18 Hemoglobin A1C 4.3 - 5.6 % 7.5 (H) Estimated Average Glucose mg/dL 169 Glucose meter data or log was reviewed for the past month. Range: 78-301. Average: 163. Patient wastesting 1-3x per day. Assessment and Plan 1. Type 2 diabetes mellitus with stage 3b chronic kidney disease, with long-term current use of insulin (HCC) - ICD9: 250.40, 585.3, V58.67, ICD10: E11.22, N18.32, Z79.4 (primary diagnosis) improved control - BASIC METABOLIC PNL - HGB A1C - CONSULT TO OPHTHALMOLOGY 2. Mixed hyperlipidemia - ICD9: 272.2, ICD10: E78.2 - good control - Continue current medication. - LIPID PANEL BASIC 3. Hypertensive kidney disease with stage 3b chronic kidney disease (HCC) - ICD9: 403.90, 585.3, ICD10: I12.9, N18.32 - CBC 4. Need for influenza vaccination - ICD9: V04.81, ICD10: Z23 - INFLUENZA SEASONAL QUADRIVALENT HIGH DOSE AGE 65+ 5. Postmenopausal - ICD9: V49.81, ICD10: Z78.0 - DXA-AXIAL SKELETON Jj Nettles [place] [id number] Miscellaneous Notes* Telephone Encounter - Shyann Bautista LPN - 01/15/2022 1:04 PM EDT Last seen pcp 04/03/21. Next appt is 01/29/22. * Telephone Encounter - Marialuisa Gallo Pss - 01/15/2022 12:04 PM EDT Patient has been identified by name and date of : Yes Requested Prescriptions Pending Prescriptions Disp Refills dulaglutide (TRULICITY) 1.5 mg/0.5 mL pen injector 12 Each 3 Sig: Inject 1.5 mg subcutaneously one time a week. Inject once per week. Discard Pen After RX INSTRUCTIONS: Patient aware RX escripted to mail away pharmacy. No need to notify patient. Marialuisa Gallo Pss [facility] Miscellaneous Notes* Telephone Encounter - Gina Ledezma Pss - 01/12/2022 12:39 PM EDT Patient was calling to schedule lab orders placed last Mar, with date of 07/2021. These orders 60 day s from the July 2021 date and will need new orders please. [facility] History of Present illness Narrative* Veronica French MA - 09/08/2021 4:20 PM EDT POPULATION HEALTH NAVIGATION OUTREACH Action/FYI Called and left a message to call [phone], to discuss health maintenance items that are due. PCP appt: My chart activation: inactive Advance directive: needs info HM due: TIFFANY Mammogram-already ordered A1C- already ordered FOBT- already ordered My chart and AD Pt identified by name and : NO Outreach Outcome/Action Unable to reach patient: Left message Reason for Outreach Care Gap or Scheduling/Wellness visits Payer: Payor: [employer] MEDICARE / Plan: [employer] / Product Type: HMO / Care Gap Reviewed:: Breast Cancer screening Colorectal Cancer Screening Diabetic Eye Exam HBA1C Reminder: Reminder note to check Health Maintenance for items below Health Maintenance items due: DILATED RETINAL EXAM Never done SPIROMETRY Never done COLORECTAL CANCER SCREENING Never done MAMMOGRAM due on 07/27/2018 BONE DENSITY Never done ADVANCE DIRECTIVE DISCUSSION Never done URINE ALBUMIN:CREATININE RATIO due on 09/11/2021 LDL CHOLESTEROL due on 09/11/2021 DIABETIC FOOT EXAM due on 09/18/2021 Message Sent to Practice: No Navigation Signature: Veronica French MA September 08, 2021 4:21 PM [facility] History of Past illness Narrative* Problem Noted Date Resolved Date Type 2 diabetes mellitus wit h hyperglycemia, with long-term current use of insulin 09/16/2020 01/29/2022 Type 2 diabetes mellitus 07/11/2015 016 Overview: Dx: 2008 Recently got on insulin Last Assessment & Plan: Her sugars are running around 300, Fasting are around 300. Before she eats it runs from 300 to 500. Says she is takingn 35 units of lantus every night. Must not be taking her medication the right way. She also takes her short acting insulin. documented as of this encounter (statuses as of 01/30/2022) [facility] History of Past illness Narrative* Problem Noted Date Resolved Date Type 2 diabetes mellitus wit h hyperglycemia, with long-term current use of insulin 09/16/2020 01/29/2022 Type 2 diabetes mellitus 07/11/2015 016 Overview: Dx: 2008 Recently got on insulin Last Assessment & Plan: Her sugars are running around 300, Fasting are around 300. Before she eats it runs from 300 to 500. Says she is takingn 35 units of lantus every night. Must not be taking her medication the right way. She also takes her short acting insulin. documented as of this encounter (statuses as of 04/04/2022) [address]20-2021 History of Past illness Narrative* Problem Noted Date Resolved Date Type 2 diabetes mellitus wit h hyperglycemia, with long-term current use of insulin 09/16/2020 01/29/2022 Type 2 diabetes mellitus 07/11/2015 016 Overview: Dx: 2008 Recently got on insulin Last Assessment & Plan: Her sugars are running around 300, Fasting are around 300. Before she eats it runs from 300 to 500. Says she is takingn 35 units of lantus every night. Must not be taking her medication the right way. She also takes her short acting insulin. documented as of this encounter (statuses as of 04/24/2022) [place] [address]-20-2021 History of Past illness Narrative* Problem Noted Date Resolved Date Type 2 diabetes mellitus wit h hyperglycemia, with long-term current use of insulin 09/16/2020 01/29/2022 Type 2 diabetes mellitus 07/11/2015 016 Overview: Dx: 2008 Recently got on insulin Last Assessment & Plan: Her sugars are running around 300, Fasting are around 300. Before she eats it runs from 300 to 500. Says she is takingn 35 units of lantus every night. Must not be taking her medication the right way. She also takes her short acting insulin. documented as of this encounter (statuses as of 06/05/2022) [address]20-2021 History of Past illness Narrative* Problem Noted Date Resolved Date Type 2 diabetes mellitus wit h hyperglycemia, with long-term current use of insulin 09/16/2020 01/29/2022 Type 2 diabetes mellitus 07/11/2015 016 Overview: Dx: 2008 Recently got on insulin Last Assessment & Plan: Her sugars are running around 300, Fasting are around 300. Before she eats it runs from 300 to 500. Says she is takingn 35 units of lantus every night. Must not be taking her medication the right way. She also takes her short acting insulin. documented as of this encounter (statuses as of 08/17/2022) [facility] History of Past illness Narrative* Problem Noted Date Resolved Date Type 2 diabetes mellitus wit h hyperglycemia, with long-term current use of insulin 09/16/2020 01/29/2022 Type 2 diabetes mellitus 07/11/2015 016 Overview: Dx: 2008 Recently got on insulin Last Assessment & Plan: Her sugars are running around 300, Fasting are around 300. Before she eats it runs from 300 to 500. Says she is takingn 35 units of lantus every night. Must not be taking her medication the right way. She also takes her short acting insulin. documented as of this encounter (statuses as of 08/18/2022) [facility]-20-2021 History of Past illness Narrative* Problem Noted Date Diagnosed Date Resolved Date Type 2 diabetes mellitus wit h hyperglycemia, with long-term current use of insulin 09/16/2020 Type 2 diabetes mellitus 07/11/2015 Overview: Dx: 2008 Recently got on insulin Last Assessment & Plan: Her sugars are running around 300, Fasting are around 300. Before she eats it runs from 300 to 500. Says she is takingn 35 units of lantus every night. Must not be taking her medication the right way. She also takes her short acting insulin. documented as of this encounter (statuses as of 12/23/2022) [place] [address]-20-2021 History of Past illness Narrative* Problem Noted Date Diagnosed Date Resolved Date Type 2 diabetes mellitus wit h hyperglycemia, with long-term current use of insulin 09/16/2020 Type 2 diabetes mellitus 07/11/2015 Overview: Dx: 2008 Recently got on insulin Last Assessment & Plan: Her sugars are running around 300, Fasting are around 300. Before she eats it runs from 300 to 500. Says she is takingn 35 units of lantus every night. Must not be taking her medication the right way. She also takes her short acting insulin. documented as of this encounter (statuses as of 01/25/2023) [facility]-2021 History of Past illness Narrative* Problem Noted Date Diagnosed Date Resolved Date Type 2 diabetes mellitus wit h hyperglycemia, with long-term current use of insulin 09/16/2020 Type 2 diabetes mellitus 07/11/2015 Overview: Dx: 2008 Recently got on insulin Last Assessment & Plan: Her sugars are running around 300, Fasting are around 300. Before she eats it runs from 300 to 500. Says she is takingn 35 units of lantus every night. Must not be taking her medication the right way. She also takes her short acting insulin. documented as of this encounter (statuses as of 02/15/2023) [place] [address]-20-2021 History of Past illness Narrative* Problem Noted Date Diagnosed Date Resolved Date Type 2 diabetes mellitus wit h hyperglycemia, with long-term current use of insulin 09/16/2020 Type 2 diabetes mellitus 07/11/2015 Overview: Dx: 2008 Recently got on insulin Last Assessment & Plan: Her sugars are running around 300, Fasting are around 300. Before she eats it runs from 300 to 500. Says she is takingn 35 units of lantus every night. Must not be taking her medication the right way. She also takes her short acting insulin. documented as of this encounter (statuses as of 02/15/2023) [place] [address]-20-2021 History of Past illness Narrative* Problem Noted Date Diagnosed Date Resolved Date Type 2 diabetes mellitus wit h hyperglycemia, with long-term current use of insulin 09/16/2020 Type 2 diabetes mellitus 07/11/2015 Overview: Dx: 2008 Recently got on insulin Last Assessment & Plan: Her sugars are running around 300, Fasting are around 300. Before she eats it runs from 300 to 500. Says she is takingn 35 units of lantus every night. Must not be taking her medication the right way. She also takes her short acting insulin. documented as of this encounter (statuses as of 02/26/2023) [facility]21 History of Past illness Narrative* Problem Noted Date Diagnosed Date Resolved Date Type 2 diabetes mellitus wit h hyperglycemia, with long-term current use of insulin 09/16/2020 Type 2 diabetes mellitus 07/11/2015 Overview: Dx: 2008 Recently got on insulin Last Assessment & Plan: Her sugars are running around 300, Fasting are around 300. Before she eats it runs from 300 to 500. Says she is takingn 35 units of lantus every night. Must not be taking her medication the right way. She also takes her short acting insulin. documented as of this encounter (statuses as of 08/30/2023) [facility]-2016 History of Past illness Narrative* Problem Noted Date Resolved Date Type 2 diabetes mellitus 07/11/2015 016 Overview: Dx: 2008 Recently got on insulin Last Assessment & Plan: Her sugars are running around 300, Fasting are around 300. Before she eats it runs from 300 to 500. Says she is takingn 35 units of lantus every night. Must not be taking her medication the right way. She also takes her short acting insulin. documented as of this encounter (statuses as of 09/08/2021) [facility] History of Past illness Narrative* Problem Noted Date Resolved Date Type 2 diabetes mellitus 07/11/2015 016 Overview: Dx: 2008 Recently got on insulin Last Assessment & Plan: Her sugars are running around 300, Fasting are around 300. Before she eats it runs from 300 to 500. Says she is takingn 35 units of lantus every night. Must not be taking her medication the right way. She also takes her short acting insulin. documented as of this encounter (statuses as of 11/30/2021) [facility] History of Past illness Narrative* Problem Noted Date Resolved Date Type 2 diabetes mellitus 07/11/2015 016 Overview: Dx: 2008 Recently got on insulin Last Assessment & Plan: Her sugars are running around 300, Fasting are around 300. Before she eats it runs from 300 to 500. Says she is takingn 35 units of lantus every night. Must not be taking her medication the right way. She also takes her short acting insulin. documented as of this encounter (statuses as of 01/15/2022) [facility] Diagnosis Encounter for screening mammogram for breast cancer [facility] Diagnosis Type 2 diabetes mellitus with stage 3 chronic kidney disease, with long-term current use of insulin (HCC) [facility] Diagnosis Type 2 diabetes mellitus with stage 3b chronic kidney disease, with long-term current use of insulin (HCC)- Primary Mixed hyperlipidemia Hypertensive kidney disease with stage 3b chronic kidney disease (HCC) Need for influenza vaccination Need for prophylactic vaccination and inoculation against influenza Postmenopausal Asymptomatic postmenopausal status (age-related) (natural) [facility] Diagnosis Type 2 diabetes mellitus with stage 3 chronic kidney disease, with long-term current use of insulin (HCC) [facility] Diagnosis Type 2 diabetes mellitus with stage 3 chronic kidney disease, with long-term current use of insulin (HCC) [facility] Diagnosis Essential hypertension Unspecified essential hypertension Depressive disorder Depressive disorder, not elsewhere classified Insomnia, unspecified type Asthmatic bronchitis without complication, unspecified asthma severity, unspecified whether persistent [facility] Diagnosis Type 2 diabetes mellitus with stage 3 chronic kidney disease, with long-term current use of insulin (HCC)- Primary Hypertensive kidney disease with stage 3b chronic kidney disease (HCC) Mixed hyperlipidemia Depressive disorder Depressive disorder, not elsewhere classified Type 2 diabetes mellitus with stage 3b chronic kidney disease, with long-term current use of insulin (HCC) [facility] Mixed hyperlipidemia Essential hypertension Unspecified essential hypertension Type 2 diabetes mellitus with stage 3 chronic kidney disease, with long-term current use of insulin (HCC) [facility] Diagnosis Type 2 diabetes mellitus with stage 3 chronic kidney disease, with long-term current use of insulin (HCC) [facility] Diagnosis Type 2 diabetes mellitus with stage 3b chronic kidney disease, with long-term current use of insulin (HCC)- Primary [facility] Diagnosis Medicare annual wellness visit, subsequent- Primary Routine general medical examination at a health care facility Asthmatic bronchitis without complication, unspecified asthma severity, unspecified whether persistent Encounter for immunization Need for other specified prophylactic vaccination against single bacterial disease Essential hypertension Unspecified essential hypertension Type 2 diabetes mellitus with stage 3b chronic kidney disease, with long-term current use of insulin (HCC) Hypertensive kidney disease with stage 3b chronic kidney disease (HCC) [facility] Diagnosis Type 2 diabetes mellitus with stage 3b chronic kidney disease, with long-term current use of insulin (HCC)- Primary Hypertensive kidney disease with stage 3b chronic kidney disease (HCC) Asthmatic bronchitis without complication, unspecified asthma severity, unspecified whether persistent Depressive disorder Depressive disorder, not elsewhere classified Insomnia, unspecified type Encounter for screening for osteoporosis Special screening for osteoporosis [facility] Diagnosis Type 2 diabetes mellitus with stage 3 chronic kidney disease, with long-term current use of insulin (HCC) [facility] Diagnosis Mixed hyperlipidemia Type 2 diabetes mellitus with stage 3 chronic kidney disease, with long-term current use of insulin (HCC) Essential hypertension Unspecified essential hypertension [facility] Diagnosis Acute bronchitis, unspecified organism- Primary Type 2 diabetes mellitus with other specified complication (HCC) Essential hypertension Unspecified essential hypertension Mixed hyperlipidemia Annual physical exam Routine general medical examination at a health care facility Encounter for screening mammogram for malignant neoplasm of breast Other screening mammogram CKD (chronic kidney disease), unspecified stage Essential hypertension- Primary Unspecified essential hypertension Type 2 diabetes mellitus with stage 3 chronic kidney disease (HCC) Type II or unspecified type diabetes mellitus with renal manifestations, not stated as uncontrolled Mixed hyperlipidemia Acute bronchitis, unspecified organism Medicare annual wellness visit, subsequent- Primary Routine general medical examination at a health care facility Type 2 diabetes mellitus with stage 3b chronic kidney disease, with long-term current use of insulin (HCC) Insomnia, unspecified type Essential hypertension Unspecified essential hypertension Asthmatic bronchitis without complication, unspecified asthma severity, unspecified whether persistent Depressive disorder Depressive disorder, not elsewhere classified Encounter for screening examination for other mental health and behavioral disorders [facility] Diagnosis Acute bronchitis, unspecified organism- Primary Type 2 diabetes mellitus with other specified complication (HCC) Essential hypertension Unspecified essential hypertension Mixed hyperlipidemia Annual physical exam Routine general medical examination at a health care facility Encounter for screening mammogram for malignant neoplasm of breast Other screening mammogram CKD (chronic kidney disease), unspecified stage Essential hypertension- Primary Unspecified essential hypertension Type 2 diabetes mellitus with stage 3 chronic kidney disease (HCC) Type II or unspecified type diabetes mellitus with renal manifestations, not stated as uncontrolled Mixed hyperlipidemia Acute bronchitis, unspecified organism Type 2 diabetes mellitus with stage 3b chronic kidney disease, with long-term current use of insulin (HCC)- Primary [facility] Diagnosis Acute bronchitis, unspecified organism- Primary Type 2 diabetes mellitus with other specified complication (HCC) Essential hypertension Unspecified essential hypertension Mixed hyperlipidemia Annual physical exam Routine general medical examination at a [facility] care facility Encounter for screening mammogram for malignant neoplasm of breast Other screening mammogram CKD (chronic kidney disease), unspecified stage Essential hypertension- Primary Unspecified essential hypertension Type 2 diabetes mellitus with stage 3 chronic kidney disease (HCC) Type II or unspecified type diabetes mellitus with renal manifestations, not stated as uncontrolled Mixed hyperlipidemia Acute bronchitis, unspecified organism Type 2 diabetes mellitus with stage 3b chronic kidney disease, with long-term current use of insulin (HCC) Hypertensive kidney disease with stage 3b chronic kidney disease (HCC) [facility] Diagnosis Acute bronchitis, unspecified organism- Primary Type 2 diabetes mellitus with other specified complication (HCC) Essential hypertension Unspecified essential hypertension Mixed hyperlipidemia Annual physical exam Routine general medical examination at a health care facility Encounter for screening mammogram for malignant neoplasm of breast Other screening mammogram CKD (chronic kidney disease), unspecified stage Essential hypertension- Primary Unspecified essential hypertension Type 2 diabetes mellitus with stage 3 chronic kidney disease (HCC) Type II or unspecified type diabetes mellitus with renal manifestations, not stated as uncontrolled Mixed hyperlipidemia Acute bronchitis, unspecified organism Type 2 diabetes mellitus with stage 3b chronic kidney disease, with long-term current use of insulin (HCC)- Primary Essential hypertension Unspecified essential hypertension Mixed hyperlipidemia Hypertensive kidney disease with stage 3b chronic kidney disease (HCC) Depressive disorder Depressive disorder, not elsewhere classified [facility] Diagnosis Acute bronchitis, unspecified organism- Primary Type 2 diabetes mellitus with other specified complication (HCC) Essential hypertension Unspecified essential hypertension Mixed hyperlipidemia Annual physical exam Routine general medical examination at a health care facility Encounter for screening mammogram for malignant neoplasm of breast Other screening mammogram CKD (chronic kidney disease), unspecified stage Essential hypertension- Primary Unspecified essential hypertension Type 2 diabetes mellitus with stage 3 chronic kidney disease (HCC) Type II or unspecified type diabetes mellitus with renal manifestations, not stated as uncontrolled Mixed hyperlipidemia Acute bronchitis, unspecified organism Type 2 diabetes mellitus with stage 3b chronic kidney disease, with long-term current use of insulin (HCC) [facility] ([facility] Diagnostic Procedure Only (Routine) - Pending Review Specialty Diagnoses / Procedures Referred By Teddy bkaer Referred To Contact [facility] Diagnoses Encounter for screening mammogram for breast cancer Procedures RUY SCREENING SCREENING MAMMOGRAPHY BI 2-VIEW BREAST INC CAD Jj Nettles MD [address] [place], [place] [id number] [facility] [address] [place] [address] Referral ID Status Reason Start Date Expiration Date Visits Requested Visits Authorized [id number] Pending Review Auto-Generat ed Referral 11/25/2021 12/25/2022 1 1 [facility] for referral (narrative)* Diagnostic Procedure Only (Routine) - Pending Review Specialty Diagnoses / Procedures Referred By Teddy baker Referred To Contact XR IMAGING Diagnoses Encounter for screening for osteoporosis Procedures DXA-AXIAL SKELETON Jj Nettles MD [address] [place] [id number] [facility] [place] [address] Referral ID Status Reason Start Date Expiration Date Visits Requested Visits Authorized [id number] Pending Review Auto-Generat ed Referral 08/30/2023 09/28/2024 1 1 * Consult, Test, Treat (Routine) - Authorized Specialty Diagnoses / Procedures Referred By Teddy baker Referred To Contact Ophthalmology Diagnoses Type 2 diabetes mellitus with stage 3b chronic kidney disease, with long-term current use of insulin (HCC) Procedures CONSULT TO OPHTHALMOLOGY OFFICE/OUTPATIENT [facility] MDM 60 MINUTES Jj Nettles MD [address] [place] [address] Referral ID Status Reason Start Date Expiration Date Visits Requested Visits Authorized [id number] Authorized PCP Requested Referral 08/30/2023 08/29/2024 1 1 [facility] Reason for Referral Specialty Diagnoses / Procedures Referred By Teddy baker Referred To Contact Ophthalmology Diagnoses Type 2 diabetes mellitus with stage 3b chronic kidney disease, with long-term current use of insulin (HCC) Procedures CONSULT TO OPHTHALMOLOGY OFFICE/OUTPATIENT [facility] 60-74 MINUTES Jj Nettles MD [address] [place] [address] Referral ID Status Reason Start Date Expiration Date Visits Requested Visits Authorized [id number] Pending Review PCP Requested Referral 01/29/2022 01/29/2023 1 1 Specialty Diagnoses / Procedures Referred By Teddy baker Referred To Contact Ophthalmology Diagnoses Type 2 diabetes mellitus with stage 3 chronic kidney disease, with long-term current use of insulin (HCC) Procedures CONSULT TO OPHTHALMOLOGY OFFICE/OUTPATIENT [facility] 60-74 MINUTES Jj Nettles MD [address] [place] [address] Referral ID Status Reason Start Date Expiration Date Visits Requested Visits Authorized [id number] Pending Review PCP Requested Referral 08/18/2022 08/18/2023 1 1 Referral ID Status Reason Start Date Expiration Date Visits Requested Visits Authorized [id number] Pending Review PCP Requested Referral 02/25/2023 02/25/2024 1 1 Specialty Diagnoses / Procedures Referred By Contac t Referred To Contact [facility] Diagnoses Asthmatic bronchitis without complication, unspecified asthma severity, unspecified whether persistent Procedures SPIROMETRY - BASELINE AND POST DILATOR BRNCDILAT RSPSE SPMTRY PRE&POST-BRNCDILAT ADMJj Pitts MD [address] [place] [address] Respiratory [place] [address] [place] [address] Referral ID Status Reason Start Date Expiration Date Visits Requested Visits Authorized [id number] Pending Review Auto-Generat ed Referral 02/25/2023 03/26/2024 1 1 Summary Purpose Family History No Family History Records Found Advance Directives No Advanced Directives Records Found Additional Source Comments Source Comments (unrecognize d section and content) In the event this informatio n is protected by the Federal Confidentiality of Alcohol and Drug Abuse Patient Records regulations: The Federal rules restrict any use of the information to criminally investigate or prosecute any alcohol or drug abuse patient.[facility] event this information is protected by the Federal Confidentiality of Alcohol and Drug Abuse Patient Records regulations: The Federal rules restrict any use of the information to criminally investigate or prosecute any alcohol or drug abuse patient.[facility] the event this information is protected by the Federal Confidentiality of Alcohol and Drug Abuse Patient Records regulations: The Federal rules restrict any use of the information to criminally investigate or prosecute any alcohol or drug abuse patient.[facility] the event this information is protected by the Federal Confidentiality of Alcohol and Drug Abuse Patient Records regulations: The Federal rules restrict any use of the information to criminally investigate or prosecute any alcohol or drug abuse patient.[facility] the event this information is protected by the Federal Confidentiality of Alcohol and Drug Abuse Patient Records regulations: The Federal rules restrict any use of the information to criminally investigate or prosecute any alcohol or drug abuse patient.[facility] the event this information is protected by the Federal Confidentiality of Alcohol and Drug Abuse Patient Records regulations: The Federal rules restrict any use of the information to criminally investigate or prosecute any alcohol or drug abuse patient.[facility] the event this information is protected by the Federal Confidentiality of Alcohol and Drug Abuse Patient Records regulations: The Federal rules restrict any use of the information to criminally investigate or prosecute any alcohol or drug abuse patient.[facility] the event this information is protected by the Federal Confidentiality of Alcohol and Drug Abuse Patient Records regulations: The Federal rules restrict any use of the information to criminally investigate or prosecute any alcohol or drug abuse patient.[facility] the event this information is protected by the Federal Confidentiality of Alcohol and Drug Abuse Patient Records regulations: The Federal rules restrict any use of the information to criminally investigate or prosecute any alcohol or drug abuse patient.[facility] the event this information is protected by the Federal Confidentiality of Alcohol and Drug Abuse Patient Records regulations: The Federal rules restrict any use of the information to criminally investigate or prosecute any alcohol or drug abuse patient.[facility] the event this information is protected by the Federal Confidentiality of Alcohol and Drug Abuse Patient Records regulations: The Federal rules restrict any use of the information to criminally investigate or prosecute any alcohol or drug abuse patient.[facility] the event this information is protected by the Federal Confidentiality of Alcohol and Drug Abuse Patient Records regulations: The Federal rules restrict any use of the information to criminally investigate or prosecute any alcohol or drug abuse patient.[facility] the event this information is protected by the Federal Confidentiality of Alcohol and Drug Abuse Patient Records regulations: The Federal rules restrict any use of the information to criminally investigate or prosecute any alcohol or drug abuse patient.[facility] the event this information is protected by the Federal Confidentiality of Alcohol and Drug Abuse Patient Records regulations: The Federal rules restrict any use of the information to criminally investigate or prosecute any alcohol or drug abuse patient.[facility] the event this information is protected by the Federal Confidentiality of Alcohol and Drug Abuse Patient Records regulations: The Federal rules restrict any use of the information to criminally investigate or prosecute any alcohol or drug abuse patient.[facility] the event this information is protected by the Federal Confidentiality of Alcohol and Drug Abuse Patient Records regulations: The Federal rules restrict any use of the information to criminally investigate or prosecute any alcohol or drug abuse patient.[facility] the event this information is protected by the Federal Confidentiality of Alcohol and Drug Abuse Patient Records regulations: The Federal rules restrict any use of the information to criminally investigate or prosecute any alcohol or drug abuse patient.[facility] the event this information is protected by the Federal Confidentiality of Alcohol and Drug Abuse Patient Records regulations: The Federal rules restrict any use of the information to criminally investigate or prosecute any alcohol or drug abuse patient.[facility] the event this information is protected by the Federal Confidentiality of Alcohol and Drug Abuse Patient Records regulations: The Federal rules restrict any use of the information to criminally investigate or prosecute any alcohol or drug abuse patient.[facility] the event this information is protected by the Federal Confidentiality of Alcohol and Drug Abuse Patient Records regulations: The Federal rules restrict any use of the information to criminally investigate or prosecute any alcohol or drug abuse patient.[facility] the event this information is protected by the Federal Confidentiality of Alcohol and Drug Abuse Patient Records regulations: The Federal rules restrict any use of the information to criminally investigate or prosecute any alcohol or drug abuse patient.[facility] the event this information is protected by the Federal Confidentiality of Alcohol and Drug Abuse Patient Records regulations: The Federal rules restrict any use of the information to criminally investigate or prosecute any alcohol or drug abuse patient.[facility] the event this information is protected by the Federal Confidentiality of Alcohol and Drug Abuse Patient Records regulations: The Federal rules restrict any use of the information to criminally investigate or prosecute any alcohol or drug abuse patient.[facility] the event this information is protected by the Federal Confidentiality of Alcohol and Drug Abuse Patient Records regulations: The Federal rules restrict any use of the information to criminally investigate or prosecute any alcohol or drug abuse patient.[facility] the event this information is protected by the Federal Confidentiality of Alcohol and Drug Abuse Patient Records regulations: The Federal rules restrict any use of the information to criminally investigate or prosecute any alcohol or drug abuse patient.[facility] Reason for Visit (unrecogniz ed section and content) Reason Onset Date Comments Population Health Navigation Outreach 09/08/2021 [employer] care gaps Reason Onset Date Comments Refill Request 01/15/2022 Reason Onset Date Comments Recheck Immunizations 01/29/2022 Flu vaccination Reason Comments Lab Orders Reason Onset Date Comments Refill Request 04/23/2022 Reason Onset Date Comments Refill Request 06/02/2022 Reason Comments Refill Request Reason Comments F/U 6 months Reason Onset Date Comments Refill Request 12/22/2022 Reason Onset Date Comments Refill Request 01/24/2023 Reason Comments Orders Reason Onset Date Comments Population Health Navigation Outreach 02/14/2023 [employer] Gap OutreachMEDI CARE WELLNESS EXAM, DREE, FLU Reason Comments F/U 6 months Medicare Wellness Exam Reason Comments F/U 6 months Reason Onset Date Comments Refill Request 09/29/2023 Reason Onset Date Comments Refill Request 11/22/2023 Reason Comments Medicare Wellness Exam Reason Comments Medication Problem Reason Onset Date Comments Population Health Navigation Outreach 05/10/2024 [employer] Reason Onset Date Comments Population Health Navigation Outreach 08/27/2024 [employer] [place] Reason Onset Date Comments Refill Request 02/07/2025 Care Teams (unrecognized sec tion and content) Surgical Nurse Relationship Specialty Start Date End Date Jj Nettles MD [address] [place] [address] PCP - General Internal Medicine 09/12/15 Surgical Nurse Relationship Specialty Start Date End Date Jj Nettles MD [address] [place] [address] PCP - General Internal Medicine 09/12/15 Surgical Nurse Relationship Specialty Start Date End Date Jj Nettles MD [address] [place] [address] PCP - General Internal Medicine 09/12/15 Surgical Nurse Relationship Specialty Start Date End Date Jj Nettles MD [address] [place] [address] PCP - General Internal Medicine 09/12/15 Surgical Nurse Relationship Specialty Start Date End Date Jj Nettles MD [address] [place] [address] PCP - General Internal Medicine 09/12/15 Surgical Nurse Relationship Specialty Start Date End Date Jj Nettles MD [address] [place] [address] PCP - General Internal Medicine 09/12/15 Surgical Nurse Relationship Specialty Start Date End Date Jj Nettles MD [address] [place] [address] PCP - General Internal Medicine 09/12/15 Surgical Nurse Relationship Specialty Start Date End Date Jj Nettles MD [address] [place] [address] PCP - General Internal Medicine 09/12/15 Surgical Nurse Relationship Specialty Start Date End Date Jj Nettles MD [address] [place] [address] PCP - General Internal Medicine 09/12/15 Surgical Nurse Relationship Specialty Start Date End Date Jj Nettles MD [address] [place] [address] PCP - General Internal Medicine 09/12/15 Surgical Nurse Relationship Specialty Start Date End Date Jj Nettles MD [address] [place] [address] PCP - General Internal Medicine 09/12/15 Surgical Nurse Relationship Specialty Start Date End Date Jj Nettles MD [address] [place] [address] PCP - General Internal Medicine 09/12/15 Surgical Nurse Relationship Specialty Start Date End Date Jj Nettles MD [address] [place] [address] PCP - General Internal Medicine 09/12/15 Surgical Nurse Relationship Specialty Start Date End Date Jj Nettles MD [address] [place] [address] PCP - General Internal Medicine 09/12/15 Surgical Nurse Relationship Specialty Start Date End Date Jj Nettles MD [address] [place] [address] PCP - General Internal Medicine 09/12/15 Surgical Nurse Relationship Specialty Start Date End Date Jj Nettles MD [address] [place] [address] PCP - General Internal Medicine 09/12/15 Surgical Nurse Relationship Specialty Start Date End Date Jj Nettles MD [address] [place] [address] PCP - General Internal Medicine 09/12/15 Surgical Nurse Relationship Specialty Start Date End Date Jj Nettles MD [address] [place] [address] PCP - General Internal Medicine 09/12/15 Surgical Nurse Relationship Specialty Start Date End Date Jj Nettles MD [address] [place] [address] PCP - General Internal Medicine 09/12/15 Surgical Nurse Relationship Specialty Start Date End Date Jj Nettles MD [address] [place] [address] PCP - General Internal Medicine 09/12/15 Carly Zabala, GRAPE CUTTER.MATH AND SCIENCE INSTRUCTOR [address] [place] [address] [employer]visor [employer] Internal Medicine 05/07/24 Surgical Nurse Relationship Specialty Start Date End Date Jj Nettles MD [address] [place] [address] PCP - General Internal Medicine 09/12/15 Carly Zabala, GRAPE CUTTER.MATH AND SCIENCE INSTRUCTOR [address] [place] [address] Supervisor [employer] Internal Medicine 05/07/24 Surgical Nurse Relationship Specialty Start Date End Date Jj Nettles MD [address] [place] [address] PCP - General Internal Medicine 09/12/15 Carly Zabala, GRAPE CUTTER.MATH AND SCIENCE INSTRUCTOR [address] [place] [address] [employer]visor [employer] Internal Medicine 05/07/24 Surgical Nurse Relationship Specialty Start Date End Date Jj Nettles MD [address] [place] [address] PCP - General Internal Medicine 09/12/15 Carly Zabala, GRAPE CUTTER.MATH AND SCIENCE INSTRUCTOR [address] [place] [address] [employer]visor [employer] Internal Medicine 05/07/24 Surgical Nurse Relationship Specialty Start Date End Date Jj Nettles MD [address] [place] [address] PCP - General Internal Medicine 09/12/15 Carly Zabala, GRAPE CUTTER.MATH AND SCIENCE INSTRUCTOR [address] [place] [address] [facility] Internal Medicine 05/07/24 Surgical Nurse Relationship Specialty Start Date End Date Jj Nettles MD [address] [facility] [place] [address] PCP - General Internal Medicine 09/12/15 Carly Zabala, GRAPE CUTTER.MATH AND SCIENCE INSTRUCTOR [address] [facility] [place] [address] [facility] Internal [facility] 05/07/24 INFORMATION SOURCE (unrecogn ized section and content) DATE CREATED AUTHOR 03/25/[address] [facility] FOR RECORDS PERTAINING TO PATIENTS WHO ARE OR HAVE BEEN ENROLLED IN A CHEMICAL DEPENDENCY/SUBSTANCEABUSE PROGRAM, SOME INFORMATION MAY BE OMITTED. This clinical summary was aggregated from multiple sources. Caution should be exercised in using it in the provision of clinical care. This summary normalizes information from multiple sources, and as a consequence, information in this document may materially change the coding, format and clinical context of patient data. In addition, data may be omitted in some cases. CLINICAL DECISIONS SHOULD BE BASED ON THE PRIMARY CLINICAL RECORDS. [employer] provides no warranty or guarantee of the accuracy or completeness of information in this document.
[2025-04-29] MEDS: 0.9% Normal Saline (1000mL) 1,000 ML 999 ML IV (03:26)
[2025-04-29 03:34] LABS: Hematocrit 40.5 % (37-47); Hemoglobin 13.0 g/dL (12.0-15.0); Immature Granulocytes Count 0.020 X10^3/uL (0.0-0.0); Mean Corp Hgb Conc 32.1 g/dL (32-36); Mean Corpuscular Volume 87.1 fL (81-99); Mean Platelet Vol. 10.8 fl (6.2-12.0); NRBC Flagged by Analyzer 0 % (0-5); Platelet Count 242 K/mm3 (150-450); RBC Distribution Width CV 13.4 % (11.6-14.6); RBC Distribution Width SD 42.4 fl (35.1-43.9); Red Blood Count 4.65 M/mm3 (4.2-5.4); White Blood Count 8.2 K/mm3 (4.4-11.0)
[2025-04-29 04:18] LABS: Anion Gap 13 (5-15); BUN 17 mg/dL (4-19); BUN/Creat Ratio 12.5 RATIO (10-20); Calcium,Total 9.6 mg/dL (7.6-11.0); Carbon Dioxide 27.3 mmol/L (21.0-32.0); Chloride 103 mmol/L (98-108); Estimated Creatinine Clearance 34.57 ml/min (50-250); Glucose 74 mg/dL (70-99); Potassium 3.6 mmol/L (3.3-5.1)
--- NOTE | 2025-04-29 04:35 | RAD_ITS ---
PROCEDURE: CHEST PA AND LATERAL 04/29/2025 REASON FOR EXAM: DYSPNEA TECHNIQUE: Procedure Code: RADCXR Modality: DX Procedure: CHEST PA AND LATERAL COMPARISON: None available. FINDINGS: Hardware: None. Heart: The heart size is normal. Mediastinum: The mediastinal contour is unremarkable. Lungs: The lungs are clear. No pneumothorax or pleural effusion. Bones: The bones are unremarkable. RAD/Chest PA and Lateral IMPRESSION: NO ACUTE FINDINGS. Reading [facility]
[2025-04-29 05:00] VITALS: BP 143/68; PULSE 72; RESP 18; O2SAT 94
[2025-04-29 05:20] VITALS: BP 143/69; PULSE 83; RESP 16; TEMP 37.1; O2SAT 98
== END 2025-04-29 05:31 | disposition home or self-care (01) ==
PROVIDERS: Emergency Provider Emergency Medicine; PCP Internal Medicine; Visit Provider Emergency Medicine
DX: R06.02 Shortness of breath (principal); E11.22 Type 2 diabetes mellitus with diabetic chronic kidney disease; Z79.4 Long term (current) use of insulin; I12.9 Hypertensive chronic kidney disease with stage 1 through stage 4 chronic kidney disease, or unspecified chronic kidney disease; N18.9 Chronic kidney disease, unspecified; Z86.73 Personal history of transient ischemic attack (TIA), and cerebral infarction without residual deficits; Z79.899 Other long term (current) drug therapy; Z79.84 Long term (current) use of oral hypoglycemic drugs; Z79.85 Long-term (current) use of injectable non-insulin antidiabetic drugs; J02.9 Acute pharyngitis, unspecified
CPT/HCPCS: 70491; 71046; 80048; 85025; 87631; 87651; 93005; 96360; 96361; 99285; Q9967; A4216